=== PATIENT | male | born 1960 | race Caucasian/White ===

== ENCOUNTER 2020-07-14 13:31 | Outpatient (REF) | payer BC, SELFPAY ==
--- NOTE | ~2020-07-14 | MR_ITS ---
EXAMINATION: MR BRAIN WITHOUT AND WITH CONTRAST CLINICAL INFORMATION: Multiple sclerosis follow up study. COMPARISON: Prior MRI dated 07/31/2018.. TECHNIQUE: Multiplanar, multisequential imaging was obtained without and with intravenous administration of contrast. Intravenous contrast: Intravenous contrast: Gadavist 8.5 mL. FINDINGS: The overall pattern of disease is without change. No new dominant white matter lesions are identified. There is no abnormal parenchymal enhancement to suggest active inflammation. The gradient refocused acquisition is normal. No diffusion abnormalities are identified to suggest an acute or subacute infarct. The ventricles are normal in size. No mass effect or midline shift is seen. No extra-axial fluid collections are seen. On postcontrast imaging, there is no abnormal enhancement. The craniovertebral junction, marrow signal, and midline structures are normal. The major intracranial flow voids at the level of the [place] of [place] are preserved. The dural venous sinus flow voids are maintained. The mastoid air cells are well aerated. There is mild mucosal thickening in the left frontal sinus. MR/MR head/brain wo/w con IMPRESSION: No evidence of disease progression. No focal parenchymal enhancement to indicate active inflammation.
== END 2020-07-14 13:32 | disposition home or self-care (01) ==
LOC: HO.MRI 13:31
PROVIDERS: PCP Internal Medicine; Visit Provider Psychiatry & Neurology Neurology
DX: G35 Multiple sclerosis (principal)
CPT/HCPCS: 70553; A9585

== ENCOUNTER 2021-07-23 09:36 | Outpatient (REF) | payer BC, SELFPAY ==
--- NOTE | ~2021-07-23 | XR_ITS ---
EXAMINATION: XR ELBOW, RIGHT CLINICAL INFORMATION: Right elbow pain. COMPARISON: None TECHNIQUE: Three views of the right elbow. FINDINGS: Alignment is anatomic. No joint effusion. No fracture. No significant degenerative changes. XR/XR elbow RT min 3V IMPRESSION: No fracture or joint effusion.
== END 2021-07-23 09:37 | disposition home or self-care (01) ==
LOC: HO.HMGCX 09:36
PROVIDERS: PCP Internal Medicine; Visit Provider Physician Assistant
DX: M25.521 Pain in right elbow (principal)
CPT/HCPCS: 73080

== ENCOUNTER 2021-08-28 06:27 | Day surgery (SDC) | payer BC, SELFPAY ==
[2021-08-22 14:04] VITALS: BMI 28.9
--- NOTE | 2021-08-27 10:02 | P.CONAN_ITS ---
Documented by User: Ping Jacinto NP 08/27/21 10:02 HPI - Anesthesia Eval Consult details Narrative: 61yo M for Colonoscopy [facility] Past Medical History Medical History (Updated 08/28/21 @ 06:36 by Aby Wright, GARY) Asthma Elevated cholesterol Multiple sclerosis Surgical History Surgical History (Updated 08/22/21 @ 13:43 by Karely Charles RN) History of mandibular surgery Hx of appendectomy Hx of discectomy Social History Social History Patient Tobacco Use Status: Former Tobacco user Tobacco use type: Cigarette Advance Directives Information Provided: Yes (brochure mailed) Advance Directives on File: No Meds Allergies Allergy/AdvReac Type Severity Reaction Status Date / Time seasonal/ enviromental Allergy Intermediate Runny Nose Uncoded 08/22/21 13:42 Home Medications Medication Instructions Recorded Confirmed Last Taken Type albuterol sulfate 90 mcg/actuation 0 mcg INHALATION 07/23/21 Unknown History aerosol inhaler (ProAir HFA) bupropion HCl 300 mg 24 hr tablet, 300 mg PO QAM 07/23/21 08/22/21 Unknown History extended release (Wellbutrin XL) fluticasone propionate 50 spray INTRANASAL 07/23/21 Unknown History mcg/actuation nasal spray,suspension gabapentin 600 mg tablet 600 mg PO BEDTIME 07/23/21 08/22/21 Unknown History montelukast 10 mg tablet 10 mg PO DAILY 07/23/21 08/22/21 Unknown History natalizumab 300 mg/15 mL mg IV 07/23/21 Unknown History intravenous solution (Tysabri) pravastatin 40 mg tablet 40 mg PO BEDTIME 07/23/21 08/22/21 Unknown History sertraline 100 mg tablet 100 mg PO DAILY 07/23/21 08/22/21 Unknown History triamcinolone acetonide 0.1 % 1 appl TOPICAL BID-TID 07/23/21 Unknown History topical cream lorazepam 0.5 mg tablet 0.5 mg PO BID 08/22/21 08/22/21 Unknown History Exam Exam Date and Time: August 27, 2021 1002 Height,Weight and Vital Signs: Height 5 ft 9 in Weight 88.904 kg Assessment and Plan Assessment Anesthesia Assessment: Chart Reviewed Documented by User: Jey Randall MD 08/28/21 07:24 [facility] Past Medical History Medical History (Updated 08/28/21 @ 06:36 by Aby Wright RN) Asthma Elevated cholesterol Multiple sclerosis Family History Family history of problems with anesthesia: No Surgical History Surgical History (Updated 08/22/21 @ 13:43 by Karely Charles RN) History of mandibular surgery Hx of appendectomy Hx of discectomy History of Problems with Anesthesia: No Social History Social History Patient Tobacco Use Status: Former Tobacco user Tobacco use type: Cigarette Advance Directives Information Provided: Yes (brochure mailed) Advance Directives on File: No Meds Allergies Allergy/AdvReac Type Severity Reaction Status Date / Time seasonal/ enviromental Allergy Intermediate Runny Nose Uncoded 08/22/21 13:42 Home Medications Medication Instructions Recorded Confirmed Last Taken Type albuterol sulfate 90 mcg/actuation 0 mcg INHALATION 07/23/21 Unknown History aerosol inhaler (ProAir HFA) bupropion HCl 300 mg 24 hr tablet, 300 mg PO QAM 07/23/21 08/22/21 Unknown History extended release (Wellbutrin XL) fluticasone propionate 50 spray INTRANASAL 07/23/21 Unknown History mcg/actuation nasal spray,suspension gabapentin 600 mg tablet 600 mg PO BEDTIME 07/23/21 08/22/21 Unknown History montelukast 10 mg tablet 10 mg PO DAILY 07/23/21 08/22/21 Unknown History natalizumab 300 mg/15 mL mg IV 07/23/21 Unknown History intravenous solution (Tysabri) pravastatin 40 mg tablet 40 mg PO BEDTIME 07/23/21 08/22/21 Unknown History sertraline 100 mg tablet 100 mg PO DAILY 07/23/21 08/22/21 Unknown History triamcinolone acetonide 0.1 % 1 appl TOPICAL BID-TID 07/23/21 Unknown History topical cream lorazepam 0.5 mg tablet 0.5 mg PO BID 08/22/21 08/22/21 Unknown History Exam Airway Mallampati Class: II TM Dist: >3cm Neck ROM: Full Assessment and Plan Assessment Anesthesia Assessment: Anesthesia Plan Discussed Final Anesthetic Review Family History of Problems with Anesthesia: No History of Problems with Anesthesia: No NPO: Yes ASA Class: II Final Preanesthetic Review: No Changes in Pt Med Stat, Meds/Allgs Chart Reviewed, Consent Obtained/Reviewed and Anes Risks/Benef Reviewed Patient Risk: Low Procedure Risk: Low Anesthetic Plan Anesthetic Plan: MAC: Disposition: Standard PACU
[2021-08-28 06:36] VITALS: BP 115/71; PULSE 58; RESP 16; TEMP 36.1; O2SAT 96; BMI 27.3
[2021-08-28] MEDS: Lactated Ringers 1,000 ML 100 ML IVCONT (06:52)
--- NOTE | 2021-08-28 07:24 | MHC.SHP ---
Pre-Procedural Eval Section A Date of Service: 08/28/21 Section B Chief Complaint: screening Details of Present Illness: screening Relevant Family History (Specify if Yes): No Relevant Social History: None Present Medications: see Short Stay Collaborative assessment Medical History: No relevant PMH History of Previous Operations: No relevant previous surgery Allergies: Allergies Allergy/AdvReac Type Severity Reaction Status Date / Time seasonal/ enviromental Allergy Intermediate Runny Nose Uncoded 08/22/21 13:42 Review of Systems Sugical H&P ROS: Negative: Constitution, Cardiovascular, Respiratory, Neurological, Psychiatric, Hem-Onc, Allergic/Immunologic, Gastrointestinal, Genitourinary, Musculoskeletal, Integumentary, Endocrine and Eyes/Ears/Nose/Throat Exam Surgical H&P Exam: Normal: HEENT, Normal: Heart, Normal: Lungs, Normal: Extremities, Normal: Abdomen, Normal: Skin and Normal: Neurological Plan Diagnosis/Plan: Unchanged I have reviewed the history and physical and performed a pertinent physical examination on my patient. No changes have occurred unless specified.
[2021-08-28 08:04] VITALS: BP 104/66; PULSE 60; RESP 14; TEMP 36.6; O2SAT 96
--- NOTE | 2021-08-28 08:10 | P.BOP_ITS ---
Brief Operative Note Date of Service: 08/28/21 Pre-op diagnosis: screening Post-op diagnosis: same (colon polyp) Procedure: colonoscopy Surgeon: Teja Johnson Anesthesia: MAC Was an Recreational Leader used for this Procedure?: No Estimated blood loss (mL): 0 Pathology: other (polyp x1) Condition: stable Disposition: PACU
[2021-08-28 08:20] VITALS: BP 117/65; PULSE 56; RESP 18; TEMP 36.6; O2SAT 97
--- NOTE | 2021-08-28 10:50 | OP_ITS ---
SURGEON: Teja Johnson MD INDICATIONS: Colon cancer screening. PREOPERATIVE DIAGNOSIS: POSTOPERATIVE DIAGNOSIS: PROCEDURE PERFORMED: ESTIMATED BLOOD LOSS: COMPLICATIONS: ANESTHESIA: ASSISTANTS: SPECIMENS: PROCEDURE: Colonoscopy to the terminal ileum with snare polypectomy. MEDICATIONS: Monitored anesthesia care. DESCRIPTION OF PROCEDURE: History and physical performed. The risks and benefits of the procedure were explained to the patient. Informed consent was obtained. The patient was placed in left lateral decubitus position. A digital rectal exam was performed, was found to be normal. The Olympus pediatric videocolonoscope was introduced into the rectum and advanced to the cecum without difficulty. The cecum was identified by transillumination, palpation, identification of the ileocecal valve. Examination was performed. The scope was removed. He tolerated the procedure well and was taken to recovery area in stable condition. FINDINGS: The terminal ileum was examined and appeared normal. The visualized colonic mucosa was normal. There was a large amount of liquid, which limited the sensitivity examination for detection of small polyps. This was washed and suctioned. A single polyp at 80 cm measuring 8-10 mm that was pedunculated, was removed with a snare and recovered via suction. No other polyps were identified. Retroflexed examination showed moderate-sized internal hemorrhoids. IMPRESSION: Colon polyp. RECOMMENDATION: Follow up the biopsy results. MD ERIK Demarco/YARY / [id number]
== END 2021-08-28 08:38 | disposition home or self-care (01) ==
PROVIDERS: PCP Internal Medicine; Visit Provider Internal Medicine Gastroenterology
PROC: 0DJD8ZZ Inspection of Lower Intestinal Tract, Via Natural or Artificial Opening Endoscopic (ICD-10-PCS; CPT 45378; principal; 2021-08-28 07:30)
DX: Z12.11 Encounter for screening for malignant neoplasm of colon (principal); D12.4 Benign neoplasm of descending colon; K64.8 Other hemorrhoids; G35 Multiple sclerosis; E78.00 Pure hypercholesterolemia, unspecified; J45.909 Unspecified asthma, uncomplicated; Z87.891 Personal history of nicotine dependence; Z87.81 Personal history of (healed) traumatic fracture; Z79.899 Other long term (current) drug therapy; Z98.890 Other specified postprocedural states
CPT/HCPCS: 45385; 88305

== ENCOUNTER 2022-09-23 07:08 | Outpatient (REF) | payer OTHER, SELFPAY ==
[2022-09-23 11:33] LABS: MANUAL DIFF FLAG NO
[2022-09-23 11:39] LABS: Appearance Urine Turbid; Color Urine Yellow; Glucose Urine UA Negative (Negative); Leukocyte Esterase Urine Trace (Negative); Nitrite Urine Negative (Negative); PH 5.5 (5.0-9.0); Specific Gravity - Urine >= 1.030 (1.005-1.025); UMIC TRIGGER UACC YES; Urine Blood Negative (Negative); Urine Ketones Trace mg/dL (Negative); Urine Protein Negative (Neg-Trace)
[2022-09-23 11:45] LABS: Bacteria Urine None Seen (None Seen); Basophils Percent Auto 0.7 % (0-2); Eosinophils Absolute Auto 0.2 X10*3/uL (0.0-0.4); Hematocrit 43.5 % (42.0-52.0); Hemoglobin 14.4 g/dl (14.0-18.0); Hyaline Casts Urine 0-2 /LPF (0-2); Imm Gran Abs Auto 0.01 X10*3/uL (0.00-0.03); Imm Gran Pct Auto 0.2 % (0.0-0.4); Lymphocytes Absolute Auto 2.3 X10*3/uL (1.2-4.9); Lymphocytes Percent Auto 38.6 % (20-40); Mean Corpuscular HGB Conc 33.1 g/dl (31.0-36.0); Mean Corpuscular Hemoglobin 28.7 pg (27.0-33.0); Mean Corpuscular Volume 86.8 fL (80.0-98.0); Monocytes Absolute Auto 0.7 X10*3/uL (0.1-1.2); Monocytes Percent Auto 11.4 % (2-11); NRBC Pct Auto 0.8 /100WBC (0.0-0.2); Neutrophils Absolute Auto 2.8 x10*3/uL (2.0-8.3); Neutrophils Percent Auto 46.1 % (45-73); Platelet Count 213 X10*3/uL (160-400); RBC Urine 0-2 /HPF (0-2); Red Blood Count 5.01 X10*6/uL (4.60-5.80); Red Cell Distribution Width 13.5 % (11.0-16.0); Squamous Epithelial Cell Urine 0-2 /HPF (0-2); WBC Urine 0-5 /HPF (0-5)
[2022-09-23 12:19] LABS: Alanine Aminotransferase 20 U/L (0-40); Albumin Level 4.1 g/dL (3.5-5.0); Alkaline Phosphatase 57 U/L (39-117); Anion Gap 13 (12-20); Aspartate Amino Transferase 26 U/L (5-37); Bilirubin Total 0.9 mg/dL (0.0-1.0); Blood Urea Nitrogen 19 mg/dL (9-16); Calcium 9.2 mg/dL (8.4-10.2); Carbon Dioxide 24 mmol/L (22-29); Chloride 107 mmol/L (96-108); Cholesterol 210 mg/dL; Estimated Glomerular Filt Rate > 60; Glucose Fasting 86 mg/dL (60-99); HDL Cholesterol 51 mg/dL; LDL Cholesterol Calculated 143 mg/dl; Potassium 4.3 mmol/L (3.3-5.1); Sodium 140 mmol/L (135-145); Total Protein 6.2 g/dL (6.5-8.0); Triglycerides 80 mg/dL
[2022-09-23 12:37] LABS: Prostate Specific Antigen Scr 1.99 ng/mL (<0.05-4.0); TSH reflex Free T4 1.13 uIU/mL (0.32-4.0)
== END 2022-09-23 07:09 | disposition home or self-care (01) ==
LOC: HO.HMGCLDS 07:08
PROVIDERS: PCP Nurse Practitioner Family; Visit Provider Nurse Practitioner Family
DX: Z00.00 Encounter for general adult medical examination without abnormal findings (principal); Z12.5 Encounter for screening for malignant neoplasm of prostate
CPT/HCPCS: 36415; 80053; 80061; 81001; 84153; 84443; 85025

== ENCOUNTER 2022-12-25 07:29 | Outpatient (AMB) | payer OTHER, SELFPAY ==
--- NOTE | 2022-12-25 07:38 | A.OFFPC_ITS ---
Vital Signs 12/25/22 07:39 Height 5 ft 8 in Weight 187 lb 4 oz BMI 28.5 BP 112/68 Blood Pressure Location Rt brachial Position Sitting Pulse 60 Pulse Source Pulse Oximeter Pulse Oximetry (%) 95 Oxygen Delivery Method Room Air Intake Visit Reasons: PE Allergies seasonal/ enviromental Allergy (Intermediate, Uncoded 12/25/22 07:54) Runny Nose Medication List - Last Reconciled 12/25/22 by MONTY Price-ERIK albuterol sulfate 90 mcg/actuation (ProAir HFA) 0 mcg inhalation bupropion HCl (Wellbutrin XL) 300 mg PO QAM fluticasone propionate 50 mcg/actuation sprays intranasal gabapentin 600 mg PO BEDTIME lorazepam 0.5 mg PO BID montelukast 10 mg PO DAILY natalizumab (Tysabri) mg IV pravastatin 40 mg PO BEDTIME sertraline 100 mg PO DAILY triamcinolone acetonide 0.1% 1 appl topical BID-TID Tobacco use date assessed: 12/25/22 Dental Screening Dental Screen Date: 12/25/22 Did you have a dental visit in the last 12 months?: Yes Did you have a dental problem in the last 6 months where you did not have access to dental care?: No Was dental information given to patient?: Patient has dentist HPI PE HPI Details Here for a PE. Colon screen is up to date. PSA is up to date. intermittent weak stream, denies excessive dribbling. Refuses [facility] today[facility] Medical History Asthma Elevated cholesterol Multiple sclerosis Surgical History History of mandibular surgery Hx of appendectomy Hx of discectomy Social History Household Members: Spouse Housing: House Patient Tobacco Use Status: Former Tobacco user Tobacco use type: Cigarette e-Cigarette/Vaping Use: Never Used service: Yes Current occupational status: retired Cognitive needs: No Hearing needs: Yes Vision needs: Yes Questionnaire PHQ-9 Over the last 2 weeks, how often have you been bothered by any of the following problems? 1. Little interest or pleasure in doing things: not at all 2. Feeling down, depressed, or hopeless: not at all 3. Trouble falling or staying asleep, or sleeping too much: not at all 4. Feeling tired or having little energy: not at all 5. Poor appetite or overeating: not at all 6. Feeling bad about yourself - or that you are a failure or have let yourself or your family down: not at all 7. Trouble concentrating on things, such as reading the newspaper or watching television: not at all 8. Moving or speaking so slowly that other people could have noticed. Or the opposite - being so fidgety or restless that you have been moving around a lot more than usual: not at all 9. Thoughts that you would be better off or of hurting yourself in some way: not at all Total score: 0 Source: Developed by Drs. Jared Arias, Germania Mace, Zane Trujillo and colleagues, with an educational sung from [employer]. Thrive Questionnaire Date Thrive assessed: 12/25/22 I am a: Patient What is your living situation today?: I have a steady place to live Within the past 12 months, did the food you bought not last and you didn't have the money to get more?: Never true Within the past 12 months, did you worry whether your food would run out before you got money to buy more?: Never true Do you have trouble paying for medicines?: No Do you have trouble getting transportation to medical appointments?: No Do you have trouble paying your heating and electricity bill?: No Do you have trouble taking care of your child, family member or friend?: No Do you have trouble with day-to-day activities such as bathing, preparing meals, shopping, managing finances, etc.?: No Are you currently unemployed and looking for a job?: No Are you interested in more education?: No ABEBE-7 AMB Questionnaire ABEBE-7 Date ABEBE - 7 assessed: 12/25/22 Feeling nervous, anxious, or on edge: 0 = Not at all Not being able to stop or control worryin = Not at all Worrying too much about different things: 0 = Not at all Trouble relaxin = Not at all Being so restless that it is hard to sit still: 0 = Not at all Becoming easily annoyed or irritable: 0 = Not at all Feeling afraid as if something awful might happen: 0 = Not at all Total ABEBE-7 score (0-4 normal; 5-9 mild; 10-14 moderate; 15-21 severe): 0 Source: Developed by Drs. Jared Arias, Germania Mace, Zane Trujillo and colleagues, with an educational sung from [employer]. Review of Systems Const Denies chills and Denies fever(s) Eyes Denies blurry vision ENT Denies vertigo, Denies dizziness and Denies sore throat Card Denies chest pain at rest, Denies chest pain with activity, Denies diaphoresis, Denies dyspnea and Denies dyspnea on exertion Resp Denies cough, Denies dyspnea, Denies dyspnea on exertion and Denies wheezing GI Denies abdominal pain, Denies melena, Denies hematochezia, Denies constipation, Denies diarrhea and Denies loose stools Denies hematuria Musc Denies numbness and Denies tingling Skin/Breast Denies lesions Neuro Denies vertigo, Denies dizziness, Denies numbness and Denies tingling Psych Denies anxiety, Denies depression, Denies homicidal ideation, Denies suicidal ideation and Denies other (substance abuse) Aller/Immun Denies wheezing Physical exam (Primary Care) Vital Signs: Last Vital Signs Pulse 60 12/25/22 07:39 BP 112/68 12/25/22 07:39 Pulse Ox 95 12/25/22 07:39 Oxygen Delivery Method Room Air 12/25/22 07:39 BMI result Body Mass Index 28.5 Tobacco/Smoking Status: Tobacco use Status Tobacco use date assessed 12/25/22 12/25/22 07:47 Patient Tobacco Use Status Former Tobacco user 12/25/22 07:39 Tobacco use type Cigarette 12/25/22 07:39 e-Cigarette/Vaping Use Never Used 12/25/22 07:39 PHQ-9: PHQ-9 Score PHQ-9: Total score 0 12/25/22 08:24 Thrive Assessment: Date of Thrive Assessment Date Thrive assessed 12/25/22 12/25/22 08:24 Const General: cooperative Nutritional Appearance: well nourished Orientation/consciousness: patient oriented x3 HENMT Head: Yes normal to inspection, Yes normocephalic and Yes atraumatic Ears: TM normal on the right and TM normal on the left Eyes General: appearance normal, both eyes and all related structures Alignment and Position: alignment normal and position normal Neck Neck: Yes normal visual inspection and Yes no lymphadenopathy Resp Effort & Inspection: normal respiratory effort Auscultation: clear to auscultation bilaterally Cardio Rate: regular rate Rhythm: regular rhythm Heart sounds: S1 normal heart sound present, S2 normal heart sound present and no murmurs GI Palpation (GI): Soft to palpation and nontender Auscultation: normal bowel sounds Male General Exam: Yes normal external exam Penis: normal penis Scrotum: scrotum normal, testes descended bilaterally and no inguinal hernias Testes: no testicular mass Skin Rashes: no rashes Neuro General: patient oriented x3, moves all extremities, no focal motor deficits and deep tendon reflexes 2+ bilaterally Romberg Test: Negative Extrem Right lower extremity: no edema Left lower extremity: no edema Psych Affect: normal affect Attitude: cooperative Thought process: Normal thought process present Assessment and Plan Assessment & Plan (1) Physical exam: Code(s): Z. - Encounter for general adult medical examination without abnormal findings Orders: Orders Comprehensive [place]. Panel Fast Today Z. - Encounter for general adult medical examination without abnormal findings Lipid Panel Today Z. - Encounter for general adult medical examination without abnormal findings TSH reflex Free T4 Today Z. - Encounter for general adult medical examination without abnormal findings Complete Blood Count Auto Diff Today Z00. - Encounter for general adult medical examination without abnormal findings UA CC w/rflx Micro + Cult Today Z. - Encounter for general adult medical examination without abnormal findings AMB EKG-In Office Today Z. - Encounter for general adult medical examination without abnormal findings Coding Level of Care Code Est Pt Prev Care 40-64y(48838) Diagnoses Physical exam Z.
[2022-12-25 07:39] VITALS: BP 112/68; PULSE 60; O2SAT 95; BMI 28.5
== END 2022-12-25 08:36 | disposition home or self-care (01) ==
PROVIDERS: PCP Nurse Practitioner Family; Visit Provider Nurse Practitioner Family
DX: Z00.00 Encounter for general adult medical examination without abnormal findings (principal)
CPT/HCPCS: 99396

== ENCOUNTER 2023-01-22 13:28 | Outpatient (REF) | payer OTHER, SELFPAY ==
--- NOTE | ~2023-01-22 | MR_ITS ---
EXAMINATION: MR BRAIN WITH/WITHOUT CONTRAST CLINICAL INFORMATION: MS COMPARISON: Brain MRI 07/14/2020 TECHNIQUE: MRI of the brain was obtained using routine sequences before and following administration of intravenous contrast. A total of 7.5 mL of Gadavist was administered intravenously. FINDINGS: Stable moderate burden of demyelinating disease within the supratentorial brain parenchyma without new or enhancing lesions identified. No acute infarct. No acute intracranial hemorrhage or extra-axial fluid collection. Stable mild age appropriate generalized parenchymal volume loss. No mass lesion, mass effect, or herniation pattern. Normal intracranial arterial and dural venous sinus flow voids. Normal appearance of the midline structures. The orbits are grossly unremarkable. Scattered paranasal sinus mucosal disease, including some T1 hyperintense contents in the left frontoethmoidal region, presumably inspissated secretions and/or chronic fungal elements. No mastoid effusion. Asymmetric right TMJ osteoarthrosis. MR/MR head/brain wo con IMPRESSION: Stable moderate burden of demyelinating disease within the supratentorial brain parenchyma without new or enhancing lesions identified.
[2023-01-22] MEDS: gadobutroL 7.5 ML VIAL IVPUSH (14:14)
== END 2023-01-22 13:29 | disposition home or self-care (01) ==
LOC: HO.MRI 13:28
PROVIDERS: PCP Internal Medicine; Visit Provider Psychiatry & Neurology Neurology
DX: G35 Multiple sclerosis (principal)
CPT/HCPCS: 70551; A9585

== ENCOUNTER 2023-03-19 09:57 | Outpatient (REF) | payer OTHER, SELFPAY ==
[2023-03-19 13:10] LABS: MANUAL DIFF FLAG NO
[2023-03-19 13:21] LABS: Basophils Percent Auto 0.5 % (0-2); Eosinophils Absolute Auto 0.2 X10*3/uL (0.0-0.4); Hematocrit 42.3 % (42.0-52.0); Hemoglobin 14.2 g/dl (14.0-18.0); Imm Gran Abs Auto 0.02 X10*3/uL (0.00-0.03); Imm Gran Pct Auto 0.3 % (0.0-0.4); Lymphocytes Absolute Auto 2.1 X10*3/uL (1.2-4.9); Lymphocytes Percent Auto 34.6 % (20-40); Mean Corpuscular HGB Conc 33.6 g/dl (31.0-36.0); Mean Corpuscular Hemoglobin 29.1 pg (27.0-33.0); Mean Corpuscular Volume 86.7 fL (80.0-98.0); Mean Platelet Volume 9.9 fL (9.4-12.4); Monocytes Absolute Auto 0.6 X10*3/uL (0.1-1.2); Monocytes Percent Auto 10.4 % (2-11); NRBC Pct Auto 0.5 /100WBC (0.0-0.2); Neutrophils Absolute Auto 3.1 x10*3/uL (2.0-8.3); Neutrophils Percent Auto 51.2 % (45-73); Platelet Count 218 X10*3/uL (160-400); Red Blood Count 4.88 X10*6/uL (4.60-5.80); Red Cell Distribution Width 13.2 % (11.0-16.0)
[2023-03-19 13:55] LABS: HBc Num1 0.14 S/CO (0.00-0.79); HBsAGNum1 0.42 S/CO (0.00-0.99); Hepatitis B Core Antibody Nonreactive (Nonreactive); Hepatitis B Surface Antigen Negative (Negative); ~HepC Num1 0.05 S/CO (0.00-0.79); ~Hepatitis B Surface Antibody NONREACTIVE (Nonreactive); ~Hepatitis C Antibody Nonreactive (Nonreactive)
[2023-03-20 16:08] LABS: IgA 203 mg/dL (70-320); IgG 849 mg/dL (600-1540); IgM 27 mg/dL (50-300)
[2023-04-01 06:08] LABS: JCV Antibody POSITIVE; JCV Index Value 0.73
== END 2023-03-19 09:58 | disposition home or self-care (01) ==
LOC: HO.HMGCLDS 09:57
PROVIDERS: PCP Nurse Practitioner Family; Visit Provider Psychiatry & Neurology Neurology
DX: G35 Multiple sclerosis (principal)
CPT/HCPCS: 82784; 85025; 86355; 86359; 86704; 86706; 86711; 86803; 87340

== ENCOUNTER 2023-12-05 12:35 | Outpatient (AMB) | payer OTHER, SELFPAY ==
[2023-12-05 12:38] VITALS: BP 118/70; PULSE 72; TEMP 36.6; O2SAT 97; BMI 28.3
--- NOTE | 2023-12-05 12:38 | AM.OFFWIN_ITS ---
Intake Vital Signs 12/05/23 12:38 Height 5 ft 8 in Weight 186 lb BMI 28.3 BP 118/70 Blood Pressure Location Rt brachial Position Sitting Pulse 72 Pulse Source Pulse Oximeter Temp 97.8 F Temp Source Oral Pulse Oximetry (%) 97 Intake Visit Reasons: EP LT garrido cut/?swelling Intake Note: pt is here for left garrido cut, swelling and clear drainage Patient Tobacco Use Status: Former Tobacco user Allergies seasonal/ enviromental Allergy (Intermediate, Uncoded 12/05/23 12:42) Runny Nose Do you need a note to return to daycare/school/sports/work: Yes HPI HPI Comments History of Present Illness Details Patient is a 63-year-old male complaining of a cut on his left garrido that he sustained 8 days ago, he states he hit it on the metal part of his truck. he states it has been weeping a dramatic amount of clear fluid since then but he is also noticed the middle of it is turning a vance/brown color, it is not healing and there is a darkened area in the center. He also states it is becoming painful. He states he has been using hydrogen peroxide on it daily and a triple antibiotic ointment and then covering it with a Band-Aid. [facility] Medical History Asthma Elevated cholesterol Multiple sclerosis Surgical History History of mandibular surgery Hx of appendectomy Hx of discectomy Social History Household Members: Spouse Housing: House Patient Tobacco Use Status: Former Tobacco user Tobacco use type: Cigarette e-Cigarette/Vaping Use: Never Used service: Yes Current occupational status: retired Cognitive needs: No Hearing needs: Yes Vision needs: Yes Review of Systems Const All systems reviewed & are unremarkable except as noted in HPI and below Physical Exam Vital Signs: Last Vital Signs Temp 97.8 F 12/05/23 12:38 Pulse 72 12/05/23 12:38 BP 118/70 12/05/23 12:38 Pulse Ox 97 12/05/23 12:38 BMI result Body Mass Index 28.3 Const General: cooperative, healthy appearing, comfortable, no acute distress and well developed Orientation/consciousness: patient oriented x3 Limitations: no limitations Eyes General: appearance normal, both eyes and all related structures Resp Effort & Inspection: normal respiratory effort and able to speak in complete sentences Skin Other: Left anterior garrido has a 2 cm linear laceration that is crusted with a purulent material and a black spot in the center. There is erythema around the wound as well as tenderness. weeping clear fluid as well Neuro General: patient oriented x3 Assessment & Plan Assessment & Plan (1) Wound of left lower extremity: Code(s): S81.802A - Unspecified open wound, left lower leg, initial encounter Qualifiers: Encounter type: initial encounter Qualified Code(s): S81.802A - Unspecified open wound, left lower leg, initial encounter Plan: Recommended stopping using hydrogen peroxide on it daily, recommended using Aquaphor ointment twice a day and taking the doxycycline for 5 days. Recommended leaving it open to air unless he is going out in public, then he should cover (2) Infected wound: Code(s): T14.8XXA - Other injury of unspecified body region, initial encounter; L08.9 - Local infection of the skin and subcutaneous tissue, unspecified Plan: see above Plan see above Medications: New doxycycline hyclate 100 mg PO BID 10 tabs 0RF Coding Level of Care Code Est Pt Level 3 (74433) Diagnoses Wound of left lower extremity, initial encounter S81.802A Encounter type: initial encounter Infected wound T14.8XXA; L08.9
== END 2023-12-05 13:59 | disposition home or self-care (01) ==
PROVIDERS: PCP Nurse Practitioner Family; Visit Provider Physician Assistant
DX: S81.802A Unspecified open wound, left lower leg, initial encounter (principal); T14.8XXA Other injury of unspecified body region, initial encounter; L08.9 Local infection of the skin and subcutaneous tissue, unspecified; Z23 Encounter for immunization
CPT/HCPCS: 90471; 90715; 99213

== ENCOUNTER 2023-12-24 07:02 | Outpatient (REF) | payer OTHER, SELFPAY ==
[2023-12-24 10:14] LABS: MANUAL DIFF FLAG NO
[2023-12-24 10:23] LABS: Appearance Urine Cloudy; Color Urine Yellow; Glucose Urine UA Negative (Negative); Leukocyte Esterase Urine Negative (Negative); Nitrite Urine Negative (Negative); PH 5.5 (5.0-9.0); Urine Blood Negative (Negative); Urine Ketones Negative (Negative); Urine Protein Negative (Neg-Trace)
[2023-12-24 10:24] LABS: Basophils Percent Auto 0.6 % (0-2); Eosinophils Absolute Auto 0.2 X10*3/uL (0.0-0.4); Eosinophils Percent Auto 3.4 % (0-4); Hematocrit 44.8 % (42.0-52.0); Hemoglobin 15.1 g/dl (14.0-18.0); Imm Gran Abs Auto 0.01 X10*3/uL (0.00-0.03); Imm Gran Pct Auto 0.2 % (0.0-0.4); Lymphocytes Absolute Auto 1.1 X10*3/uL (1.2-4.9); Lymphocytes Percent Auto 23.2 % (20-40); Mean Corpuscular HGB Conc 33.7 g/dl (31.0-36.0); Mean Corpuscular Hemoglobin 29.1 pg (27.0-33.0); Mean Corpuscular Volume 86.3 fL (80.0-98.0); Mean Platelet Volume 10.1 fL (9.4-12.4); Monocytes Absolute Auto 0.6 X10*3/uL (0.1-1.2); Monocytes Percent Auto 12.8 % (2-11); Neutrophils Absolute Auto 2.8 x10*3/uL (2.0-8.3); Neutrophils Percent Auto 59.8 % (45-73); Platelet Count 224 X10*3/uL (160-400); Red Blood Count 5.19 X10*6/uL (4.60-5.80); Red Cell Distribution Width 12.5 % (11.0-16.0); White Blood Count 4.8 X10*3/uL (4.8-10.8)
[2023-12-24 10:54] LABS: Alanine Aminotransferase 11 U/L (0-40); Albumin Level 3.9 g/dL (3.5-5.0); Alkaline Phosphatase 53 U/L (39-117); Anion Gap 11 (12-20); Aspartate Amino Transferase 17 U/L (5-37); Bilirubin Total 0.4 mg/dL (0.0-1.0); Blood Urea Nitrogen 16 mg/dL (9-16); Calcium 8.8 mg/dL (8.4-10.2); Carbon Dioxide 26 mmol/L (22-29); Chloride 108 mmol/L (96-108); Cholesterol 209 mg/dL (<200); Estimated Glomerular Filt Rate > 60; Glucose Fasting 91 mg/dL (60-99); HDL Cholesterol 55 mg/dL (>40); LDL Cholesterol Calculated 140 mg/dL (<100); Potassium 4.2 mmol/L (3.3-5.1); Sodium 141 mmol/L (135-145); TSH reflex Free T4 0.95 uIU/mL (0.32-4.0); Total Protein 6.3 g/dL (6.5-8.0); Triglycerides 70 mg/dL (<150)
== END 2023-12-24 07:03 | disposition home or self-care (01) ==
LOC: HO.HMGCLDS 07:02
PROVIDERS: PCP Nurse Practitioner Family; Visit Provider Nurse Practitioner Family
DX: Z00.00 Encounter for general adult medical examination without abnormal findings (principal)
CPT/HCPCS: 36415; 80053; 80061; 81003; 84443; 85025

== ENCOUNTER 2024-01-01 14:55 | Outpatient (AMB) | payer OTHER, SELFPAY ==
[2024-01-01 14:56] VITALS: BP 110/70; PULSE 72; O2SAT 96; BMI 28.0
--- NOTE | 2024-01-01 14:56 | A.OFFPC_ITS ---
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 Required: No Accompanied by: Self / Same As Patient Allergies seasonal/ enviromental Allergy (Intermediate, Uncoded 01/01/24 14:57) Runny Nose Medication List - Last Reconciled 01/01/24 by MONTY Price-ERIK albuterol sulfate 90 mcg/actuation (ProAir HFA) 0 mcg inhalation bupropion HCl XL (Wellbutrin XL) 300 mg PO QAM fluticasone propionate 50 mcg/actuation sprays intranasal gabapentin 600 mg PO BEDTIME lorazepam 0.5 mg PO BID montelukast 10 mg PO DAILY ocrelizumab (Ocrevus) 600 mg IV [id number] pravastatin 40 mg PO BEDTIME sertraline 100 mg PO DAILY triamcinolone acetonide 0.1% 1 appl topical BID-TID Tobacco use date assessed: 01/01/24 Dental Screening Dental Screen Date: 01/01/24 Did you have a dental visit in the last 12 months?: Yes Did you have a dental problem in the last 6 months where you did not have access to dental care?: No Was dental information given to patient?: Patient has dentist HPI PE HPI Details Pt is here for a PE. Labs were already performed. Colon screen is up to date. [facility]. Pt's cholesterol was elevated. Will increase pravastatin from 40mg to 80mg. Pt is seeing an MS specialist. [facility], [facility] Medical History Asthma Multiple sclerosis Elevated cholesterol Surgical History Hx of discectomy History of mandibular surgery Hx of appendectomy Social History Household Members: Spouse Housing: House Patient Tobacco Use Status: Former Tobacco user Tobacco use type: Cigarette e-Cigarette/Vaping Use: Never Used service: Yes Current occupational status: retired Cognitive needs: No Hearing needs: Yes Vision needs: Yes Questionnaire PHQ-9 Over the last 2 weeks, how often have you been bothered by any of the following problems? 1. Little interest or pleasure in doing things: not at all 2. Feeling down, depressed, or hopeless: not at all 3. Trouble falling or staying asleep, or sleeping too much: not at all 4. Feeling tired or having little energy: not at all 5. Poor appetite or overeating: not at all 6. Feeling bad about yourself - or that you are a failure or have let yourself or your family down: not at all 7. Trouble concentrating on things, such as reading the newspaper or watching television: not at all 8. Moving or speaking so slowly that other people could have noticed. Or the opposite - being so fidgety or restless that you have been moving around a lot more than usual: not at all 9. Thoughts that you would be better off or of hurting yourself in some way: not at all Total score: 0 Depression Screening Interpretation: Negative Depression Screening Done: Yes 18810 - PHQ-9 Billing: Yes Source: Developed by Drs. Jared Arias, Germania Mace, Zane Trujillo and colleagues, with an educational sung from [employer]. Thrive Questionnaire Date Thrive assessed: 01/01/24 I am a: Patient What is your living situation today?: I have a steady place to live Within the past 12 months, did the food you bought not last and you didn't have the money to get more?: Never true Within the past 12 months, did you worry whether your food would run out before you got money to buy more?: Never true Do you have trouble paying for medicines?: No Do you have trouble getting transportation to medical appointments?: No Do you have trouble paying your heating and electricity bill?: No Do you have trouble taking care of your child, family member or friend?: No Do you have trouble with day-to-day activities such as bathing, preparing meals, shopping, managing finances, etc.?: No Are you currently unemployed and looking for a job?: No Are you interested in more education?: No Please select the resources that you would like help with: None Currently or been in a relationship where the following occur: No concerns reported THRIVE Score: 0 AUDIT C Alcohol Use Questionnaire (AUDIT-C) 1. How often do you have a drink containing alcohol?: 2-4 times a month 2. How many drinks containing alcohol do you have on a typical day when you are drinking?: 1 or 2 3. How often do you have six or more drinks on one occasion?: Never Total Score: 2 Score Reviewed/Action Taken: Yes ABEBE-7 AMB Questionnaire ABEBE-7 Date ABEBE - 7 assessed: 01/01/24 Feeling nervous, anxious, or on edge: 0 = Not at all Not being able to stop or control worryin = Not at all Worrying too much about different things: 0 = Not at all Trouble relaxin = Not at all Being so restless that it is hard to sit still: 0 = Not at all Becoming easily annoyed or irritable: 0 = Not at all Feeling afraid as if something awful might happen: 0 = Not at all Total ABEBE-7 score (0-4 normal; 5-9 mild; 10-14 moderate; 15-21 severe): 0 Source: Developed by Drs. Jared Arisa, Germania Mace, Zane Trujillo and colleagues, with an educational sung from [employer]. ABEBE-7 Assessment Billing ABEBE-7 Assessment Tool: ABEBE-7 Assessment 21764 Review of Systems Const Denies chills and Denies fever(s) Eyes Denies blurry vision ENT Denies vertigo, Denies dizziness and Denies sore throat Card Denies chest pain at rest, Denies chest pain with activity, Denies diaphoresis, Denies dyspnea and Denies dyspnea on exertion Resp Denies cough, Denies dyspnea, Denies dyspnea on exertion and Denies wheezing GI Denies abdominal pain, Denies melena, Denies hematochezia, Denies constipation, Denies diarrhea and Denies loose stools Denies hematuria Musc Denies numbness and Denies tingling Skin/Breast Denies lesions Neuro Denies vertigo, Denies dizziness, Denies numbness and Denies tingling Psych Denies anxiety, Denies depression, Denies homicidal ideation, Denies suicidal ideation and Denies other (substance abuse) Aller/Immun Denies wheezing Physical exam (Primary Care) Vital Signs: Last Vital Signs Pulse 72 01/01/24 14:56 BP 110/70 01/01/24 14:56 Pulse Ox 96 01/01/24 14:56 Oxygen Delivery Method Room Air 01/01/24 14:56 BMI result Body Mass Index 28.0 Tobacco/Smoking Status: Tobacco use Status Tobacco use date assessed 01/01/24 01/01/24 15:03 Patient Tobacco Use Status Former Tobacco user 01/01/24 15:03 Tobacco use type Cigarette 01/01/24 15:03 e-Cigarette/Vaping Use Never Used 01/01/24 15:03 PHQ-9: PHQ-9 Score PHQ-9: Total score 0 01/01/24 15:13 Depression Screening Interpretation: Negative Thrive Assessment: Date of Thrive Assessment Date Thrive assessed 01/01/24 01/01/24 15:03 Currently or been in a relationship where the following occur: No concerns reported Const General: cooperative Nutritional Appearance: well nourished Orientation/consciousness: patient oriented x3 HENMT Head: Yes normal to inspection, Yes normocephalic and Yes atraumatic Ears: TM's normal bilaterally Eyes General: appearance normal, both eyes and all related structures Alignment and Position: alignment normal and position normal Neck Neck: Yes normal visual inspection and Yes no lymphadenopathy Thyroid: Thyroid normal Resp Effort & Inspection: normal respiratory effort Auscultation: clear to auscultation bilaterally Cardio Rate: regular rate Rhythm: regular rhythm Heart sounds: S1 normal heart sound present, S2 normal heart sound present and no murmurs GI Palpation (GI): Soft to palpation and nontender Auscultation: normal bowel sounds Male General Exam: Yes normal external exam Penis: normal penis Scrotum: scrotum normal, testes descended bilaterally and no inguinal hernias Testes: no testicular mass Skin Other: anterior distal left garrido with healing scabbed lesion Rashes: no rashes Neuro General: patient oriented x3, moves all extremities, no focal motor deficits and deep tendon reflexes 2+ bilaterally Romberg Test: Negative Psych Appearance: grossly normal Mental Status: mental status grossly normal Speech and movement: Normal speech and movement present Affect: normal affect Attitude: cooperative Thought process: Normal thought process present Thought content: Normal thought content present Insight: Good insight present (Psych) Judgement: Good judgement present (Psych) Assessment and Plan Assessment & Plan (1) Screening for prostate cancer: Code(s): Z12.5 - Encounter for screening for malignant neoplasm of prostate (2) Physical exam: Code(s): Z00.00 - Encounter for general adult medical examination without abnormal findings Plan: labs already done (3) Dyslipidemia: Code(s): E78.5 - Hyperlipidemia, unspecified Plan: increasing statin from 40mg to 80mg, repeat labs in approx 2 months Orders: Orders Lipid Panel Today E78.5 - Hyperlipidemia, unspecified, Z00.00 - Encounter for general adult medical examination without abnormal findings Comprehensive [place]. Panel Fast Today E78.5 - Hyperlipidemia, unspecified, Z00.00 - Encounter for general adult medical examination without abnormal findings Medications: New pravastatin 80 mg PO BEDTIME 90 days 90 tabs 0RF Coding Level of Care Code Est Pt Prev Care 40-64y(24726) Diagnoses Screening for prostate cancer Z12.5 Physical exam Z00.00 Dyslipidemia E78.5 Additional Codes ABEBE-7 Assessment Billing - ABEBE-7 Assessment Tool: ABEBE-7 Assessment 86759 ([id number])
== END 2024-01-01 15:40 | disposition home or self-care (01) ==
PROVIDERS: PCP Nurse Practitioner Family; Visit Provider Nurse Practitioner Family
DX: Z00.00 Encounter for general adult medical examination without abnormal findings (principal); Z12.5 Encounter for screening for malignant neoplasm of prostate; E78.5 Hyperlipidemia, unspecified
CPT/HCPCS: 99396

== ENCOUNTER 2024-02-26 06:34 | Outpatient (REF) | payer OTHER, SELFPAY ==
[2024-02-26 11:00] LABS: Alanine Aminotransferase 15 U/L (0-40); Alkaline Phosphatase 57 U/L (39-117); Anion Gap 10 (12-20); Aspartate Amino Transferase 24 U/L (5-37); Bilirubin Total 0.7 mg/dL (0.0-1.0); Blood Urea Nitrogen 16 mg/dL (9-16); Calcium 9.2 mg/dL (8.4-10.2); Carbon Dioxide 28 mmol/L (22-29); Chloride 105 mmol/L (96-108); Cholesterol 177 mg/dL (<200); Estimated Glomerular Filt Rate > 60; Glucose Fasting 86 mg/dL (60-99); HDL Cholesterol 62 mg/dL (>40); LDL Cholesterol Calculated 103 mg/dL (<100); Potassium 4.2 mmol/L (3.3-5.1); Sodium 139 mmol/L (135-145); Total Protein 6.6 g/dL (6.5-8.0); Triglycerides 64 mg/dL (<150)
== END 2024-02-26 06:35 | disposition home or self-care (01) ==
LOC: HO.HMGCLDS 06:34
PROVIDERS: PCP Nurse Practitioner Family; Visit Provider Nurse Practitioner Family
DX: Z00.00 Encounter for general adult medical examination without abnormal findings (principal); E78.5 Hyperlipidemia, unspecified
CPT/HCPCS: 36415; 80053; 80061

== ENCOUNTER 2024-06-04 12:49 | Outpatient (REF) | payer OTHER, SELFPAY ==
--- NOTE | ~2024-06-04 | MR_ITS ---
CLINICAL HISTORY: MS MR Brain without and with gadolinium Comparison: None Findings: Several T2 hyperintense lesions in the periventricular and juxtacortical white matter of the cerebral hemispheres (some of the periventricular lesions are mildly T1 hypointense ). Small T2 hyperintense periventricular lesion in the left middle cerebral peduncle. No evidence of more than expected for age volume loss. No evidence of restricted diffusion or abnormal enhancement. Otherwise unremarkable exam. IMPRESSION: 1. Predominantly supratentorial T2 hyperintense lesions are compatible with demyelinating plaques in context of known multiple sclerosis. No evidence of restricted diffusion or abnormal enhancement to suggest active plaque. This document has been electronically signed by: Cristine Burton MD on 06/07/2024 10:37:17
--- NOTE | ~2024-06-04 | MR_ITS ---
CLINICAL HISTORY: MS MR cervical spine without gadolinium Comparison: None Normal alignment. No evidence of acute fracture or marrow infiltration. Multilevel disc dehydration. [id number] disc narrowing at some levels. Mild Modic type 1 changes in 1 of the upper thoracic levels. Nonenhancing, up to 3 x 10 mm, nonexpansile, T2 hyperintense region in the left posterior paramidline aspect of the cord at C6/C7 level (best seen on the stir images) compatible with demyelinating plaque in context of known multiple sclerosis. Otherwise unremarkable signal intensity of the cord on this partially motion limited study. Multilevel severe bilateral neural foraminal stenosis from C3/C4 to C5/C6. Left-sided severe neural foraminal stenosis at C6/C7. Small posterior disc osteophytes plus/minus minimal ligamentum flava thickening at several levels associated with at most mild central canal compromise. IMPRESSION: Nonenhancing, up to 3 x 10 mm, nonexpansile, T2 hyperintense region in the left posterior paramidline aspect of the cord at C6/C7 level compatible with demyelinating plaque in context of known multiple sclerosis. Otherwise unremarkable signal intensity of the cord on this partially motion limited study. Multilevel severe neural foraminal stenosis. This document has been electronically signed by: Cristine Burton MD on 06/07/2024 10:50:15
[2024-06-04] MEDS: gadobutroL 10 ML VIAL IVPUSH (14:13)
--- OUTSIDE RECORDS SUMMARY | 2024-06-04 15:24 | XMS_ITS | Encounter Summary ---
Author Name [facility] [place] [facility] [facility] [place] Address [address] [place] [id number] Care Team Providers Care System Specialist Name Role Phone HEIDI KRAMER Primary Care Provider Unavailabl e Insurance Providers: All historical and current Section Date Range: From patient's date of to the date document was created. This section includes the names of all active insurance providers for the patient. Insurance Provider Type of Coverage Plan Name Start of Policy Coverage End of Policy Coverage Group Number Member ID Insurance Provider's Telephone Number Policy Salinas's Name Patient's Relationship to Policy Salinas BCBS [place] FEP PREFERRED PROVIDER ORGANIZAT ION (PPO) BASIC SELF PLUS ONE May 28, 2015 [id number] [phone] GAUTAM MARCELO PATIENT [employer] EP BCBS PRESCRIPT ION FEP CAREM ARK May 19, 2010 [id number] [phone] GAUTAM MARCELO PATIENT [employer] RE DODA May 19, 2022 DODA [id number] GAUTAM MARCELO PATIENT [employer] RX PRESCRIPT ION RX May 19, 2022 THPRX [id number] GAUTAM MARCELO PATIENT [facility] POINT OF SERVICE POS 2021 [id number] [phone] GAUTAM MARCELO PATIENT [facility] 2021 [id number] GAUTAM MARCELO PATIENT [facility] USP -NILESH DRISCOLL 2021 [facility] EMER[facility] DEPART[facility] [id number] [phone] GAUTAM MARCELO PATIENT [facility] BREANNA Barlow 2021 [facility] EMER[facility] [id number] [phone] GAUTAM MARCELO PATIENT Selected Encounter This section includes the information on record at [place] for the Encounter. Date/Time Encounter Type Encounter Description Reason Provider Source September 19, 2023 10:13 AM ELECTROCARDIOGRAM REPORT EKG ICD-10-CM Z13.6 Encounter for screening for cardiovascular disorders SABINA DUKES Cain Encounter Template Text not used by [place] Assessments - Encounter Diagnoses This section includes the primary and secondary diagnoses documented for the Encounter. Date/Time Primary/Secondary Diagnosis Diagnosis Name Provider Source October 03, 2023 03:43 PM PRIMARY Encounter for screening for cardiovascular disorders PAULA BEARD CRISPIN [facility] Plan of Treatment: Future Appointments (+ 6 months) and Future Tests (+/- 45 days) The Plan of Treatment section includes future care activities for the patient [facility] [place] [facility] This section includes future appointments and future orders which are active, pending or scheduled. Future Appointments This section includes appointments that were scheduled to occur 6 months from the date of the Encounter, up to a maximum of 20 appointments. The data comes from all [place] treatment facilities. Appointment Date/Time Appointment Type Appointme nt Facility Name September 29, 2023 08:30 AM AMBULATORY - MEDICINE [facility] Nov 04, 2023 08:20 AM AMBULATORY MEDICINE [facility] Mar 19, 2024 10:30 AM AMBULATORY - MEDICINE [facility] Lab Results: +/- 30 days of the encounter This section includes the Chemistry and Hematology Lab Results on record with [place] for the patient. Radiology Reports and Pathology Reports are provided separately, in subsequent sections. Lab Results This section contains the Chemistry/Hematology Results that were resulted 30 days before or 30 daysafter the date of the Encounter. Date/Time Source Result Type Result - Unit Interpretation Reference Range Comment Sep 10, 2023 07:53 AM [facility] LIVER FUNCTION Specimen Type: SERUM No comment entered. Ordering Provider: HEIDI KRAMER Report Released Date/Time: Sep 06, 2023 06:54 PM Reporting Lab: [facility] [address] [facility] [address] Performing Lab: [address] [address] PROTEIN,TOTAL 6.5 g/dL 6.0-8.3 ALBUMIN 4.0 g/dL 3.5-5.0 ALKALINE PHOSPHATASE 55 U/L 40-150 AST 25 U/L 5-34 ALT 20 U/L BILIRUBIN, TOTAL 0.6 mg/dL 0.2-1.2 Sep 10, 2023 07:53 AM [facility] LIPID PANEL FASTING Specimen Type: SERUM No comment entered. Ordering Provider: HEIDI KRAMER Report Released Date/Time: Sep 06, 2023 06:54 PM Reporting Lab: [address] [address] Performing Lab: [address] [address] CHOLESTEROL 219 mg/dL H TRIGLYCERIDE 66 mg/dL 0-150 LDL calculated 141 mg/dL H 0-129 CHOL/HDL 3.4 HDL CHOLESTEROL 65 mg/dL H 40-60 Sep 10, 2023 07:53 AM [facility] BASIC METABOLIC PANEL (fasting) Specimen Type: SERUM No comment entered. Ordering Provider: HEIDI KRAMER Report Released Date/Time: Sep 06, 2023 06:54 PM Reporting Lab: [address] [address] Performing Lab: [address] [address] UREA NITROGEN 15 mg/dL 7-25 GLUCOSE 96 mg/dL 65-100 SODIUM 141 mmol/L 135-145 POTASSIUM 4.8 mmol/L 3.5-5.0 CHLORIDE 107 mmol/L 100-110 CO2 26 meq/L 20-30 CREATININE, Serum 0.93 mg/dL 0.50-1.40 eGFR(CKD-EPI 2020) >90 mL/min >60 Sep 10, 2023 07:53 AM [facility] CBC AND DIFF (AUTO) Specimen Type: BLOOD No comment entered. Ordering Provider: HEIDI KRAMER Report Released Date/Time: Sep 06, 2023 06:54 PM Reporting Lab: [facility] [address] [facility] [address] Performing Lab: [address] [address] WBC 4.31 10*3/uL L 4.50-11.00 RBC 5.14 10*6/uL 4.23-5.66 HGB 14.8 g/dL 12.8-17 HCT 44.2 39.2-50.4 MCV 86.0 fL 82-99 MCHC 33.5 g/dL 30.8-35.1 PLT 208 10*3/uL 140-360 RDW-CV 12.8 12.0-16.0 [place], Abs 0.41 10*3/uL 0.30-1.10 MCH 28.8 pg 26.2-32.6 Neut % 62.6 43.7-75.8 Lymph % 23.0 14.0-42.3 [place] % 9.5 5.1-13.7 Eos % 3.5 0.4-6.8 Baso % 0.9 0.1-2.0 Neut, Abs 2.70 10*3/uL 2.20-7.60 Lymph, Abs 0.99 10*3/uL L 1.00-3.20 Eos, Abs 0.15 10*3/uL 0.03-0.44 Baso, Abs 0.04 10*3/uL 0.01-0.13 Immature Gran % 0.5 0.0-0.7 Immature Gran, Abs 0.02 10*3/uL 0.00-0.06 Sep 10, 2023 07:53 AM [facility] TSH Specimen Type: SERUM No comment entered. Ordering Provider: HEIDI KRAMER Report Released Date/Time: Sep 06, 2023 06:54 PM Reporting Lab: [address] [address] Performing Lab: [address] [address] TSH 0.67 u[IU]/mL 0.35-5.00 Sep 10, 2023 07:53 AM [facility] PSA Specimen Type: SERUM No comment entered. Ordering Provider: HEIDI KRAMER Report Released Date/Time: Sep 06, 2023 06:54 PM Reporting Lab: [address] [address] Performing Lab: [address] [address] PSA 2.95 ng/mL 0.00-4.00 Sep 10, 2023 07:53 AM [facility] MICROSCOPIC AUTOMATED, URINE Specimen Type: URINE Comment: If Glucose = >500 and Ketones are positive, please alert the Physician. Ordering Provider: HEIDI KRAMER Report Released Date/Time: Sep 06, 2023 06:54 PM Reporting Lab: [address] [address] Performing Lab: [address] [address] UA WBC 0-5 /[HPF] 0-5 UA MUCUS FEW /[LPF] Trace UA RBC 0-2 /[HPF] 0-3 Sep 10, 2023 07:53 AM [facility] URINALYSIS CLEAN CATCH Specimen Type: URINE Comment: If Glucose = >500 and Ketones are positive, please alert the Physician. Ordering Provider: HEIDI KRAMER Report Released Date/Time: Sep 06, 2023 06:54 PM Reporting Lab: [address] [address] Performing Lab: [address] [address] UA COLOR Yellow Yellow UA APPEARANCE Clear Clear UA GLUCOSE NEGATIVE mg/dL Negative UA KETONES TRACE mg/dL Negative UA BLOOD NEGATIVE mg/dL Negative UA PROTEIN 20 mg/dL Negative UA NITRITE NEGATIVE mg/dL Negative UA BILIRUBIN NEGATIVE mg/dL Negative UA SPECIFIC GRAVITY 1.033 H 1.016-1.022 UA pH 6.0 5.0-9.0 UA UROBILINOGEN <2.0 mg/dL <2.0 UA LEUKOCYTE TRACE Negative Encounter Notes: All associated encounter notes This section contains the clinical notes associated to the Encounter. Date/Time Encounter Note(s) Provider Source October 03, 2023 03:42 PM CARDIOLOGY PROCEDU RE NOTE: LOCAL TITLE: EKG OUTPATIENT RESULT STANDARD TITLE: CARDIOLOGY PROCEDURE NOTE DATE OF NOTE: OCTOBER 03, 2023@15:42 ENTRY DATE: OCTOBER 03, 2023@15:42:33 AUTHOR: PAULA BEARD EXP COSIGNER: URGENCY: STATUS: COMPLETED An EKG was done on: September Please see [facility] for the EKG result. /[place]/ PAULA BEARD SPECIAL DIET COOK Signed: 10/03/2023 15:43 PAULA BEARD [facility]
--- OUTSIDE RECORDS SUMMARY | 2024-06-04 15:24 | XMS_ITS ---
Author Name Department of [facility] ([place] Organization [facility] Address [address] [place] [id number] Care Team Providers Care Conference Concierge Name Role Phone HEIDI KRAMER Primary Care [...] SELF PLUS ONE May 28, [phone] [id number] GAUTAM MARCELO PATIENT CAREMARK-F EP BCBS PRESCRIPT ION FEP CAREM ARK May 19, 2010 [id number] GAUTAM MARCELO PATIENT [employer] SCR[employer] TRICA RE DODA May 19, 2022 DODA [id number] GAUTAM MARCELO PATIENT OPTUM RX PRESCRIPT ION RX May 19, 2022 THPRX [id number] GAUTAM MARCELO PATIENT [facility] POINT OF SERVICE POS 2021 [id number] [phone] [id number] [phone] GAUTAM MARCELO PATIENT [facility] 2021 [facility] [id number] GAUTAM MARCELO PATIENT [facility] P -NILESH DRISCOLL 2021 [facility] [phone] GAUTAM MARCELO PATIENT [facility] Barlow 2021 [facility] [id number] [phone] GAUTAM MARCELO PATIENT Selected Encounter This section includes the information on record at [place] for the Encounter. Date/Time Encounter Type Encounter Description Reason Provider Source Jun 23, 2023 08:30 AM OFFICE O/P EST MOD 30 MIN NEUROLOGY ICD-10-CM G35 Multiple sclerosis ANA LILIA ALY [facility] Encounter Template Text not used by [place] Assessments - Encounter Diagnoses This section includes the primary and secondary diagnoses documented for the Encounter. Date/Time Primary/Secondary Diagnosis Diagnosis Name Provider Source Jun 23, 2023 08:58 AM PRIMARY Multiple sclerosis ANA [facility]ILIA ALY [facility] Plan of Treatment: Future Appointments (+ 6 months) and Future Tests (+/- 45 days) The Plan of Treatment section includes future care activities for the patient from all [place] [facility]. This section includes future appointments and future orders which are active, pending or scheduled. Future Appointments This section includes appointments that were scheduled to occur 6 months from the date of the Encounter, up to a maximum of 20 appointments. The data comes from all [place] treatment facilities. Appointment Date/Time Appointment Type Appointme nt Facility Name September 19, 2023 09:30 AM AMBULATORY - MEDICINE [facility] September 29, 2023 08:30 AM [facility] Nov 04, 2023 08:20 AM [facility]BULATORY - [facility] Vital Signs: All taken on the encounter date This section contains inpatient and outpatient Vital Signs collected on the date of the Encounter. Date/Time Temperature Pulse Blood Pressure Respiratory Rate SP02 Pain Height Weight Body Mass Index Source Jun 23, 2023 08:37 AM 97.5 67 124/78 18 94 0 192.4 29 [facility] Social History: Smoking Status (Most current) and Tobacco Use (All prior to encounter date) This section includes the most current, and the historical, smoking and tobacco- related health factors from the [place] facility where the Encounter took place. Current Smoking Status This section includes the most current smoking, or tobacco-related health factor, from the [place] facility where the Encounter took place. Date/Time Current Smoking Status Comment King barnesy Sep 11, 2022 10:30 AM VA-TOBACCO FORMER USER [facility] Tobacco Use History This section includes a history of the smoking, or tobacco-related health factors, that were collected on or before the date of the Encounter. The data comes from the [place] facility where the Encounter took place. Date/Time Smoking Status/Tobacco Use Comment F acannelise Sep 11, 2022 10:30 AM VA-TOBACCO QUIT 5 TO < 15 YRS [place] [facility] [place] [place] [facility] Sep 04, 2021 09:00 AM VA-TOBACCO FORMER USER [place] [facility] [place] [place] [facility] Sep 04, 2021 09:00 AM VA-TOBACCO QUIT 5 TO < 15 YRS [place] [facility] [place] [facility] Jul 20, 2020 08:30 AM VA-TOBACCO FORMER USER [place] [facility] [place] [place] [facility] Jul 20, 2020 08:30 AM VA-TOBACCO QUIT 5 TO < 15 YRS [place] [facility] [place] [facility] Dec 05, 2017 11:14 AM QUIT TOBACCO USE > 7 YEARS AGO [place] [facility] [place] [facility] Encounter Notes: All associated encounter notes This section contains the clinical notes associated to the Encounter. Date/Time Encounter Note(s) Provider Source Jun 23, 2023 08:50 AM NEUROLOGY OUTPATIE NT NOTE: LOCAL TITLE: NEUROLOGY CLINIC NOTE STANDARD TITLE: NEUROLOGY OUTPATIENT NOTE DATE OF NOTE: JUN 23, 2023@08:50 ENTRY DATE: JUN 23, 2023@08:50:48 AUTHOR: ANA LILIA ALY COSIGNER: URGENCY: STATUS: COMPLETED Chief Complaint: Multiple Sclerosis Interval Hx Jun Pt continues to be seen by Dr. 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 He tolerated first (split) dosing of Ocrevus without problem, and has been free from any new symptom or issue. He specifically denies any visual issues (diplopia, red desat, pain), appendicular or axial weakness, loss of bowel/bladder function, falling, or worsening of his gait. Pt o/w denies any new issues, illness, injuries, hospitalizations, or concerns. NEUROLOGIC EXAM: Gen: WD WN WM in NAD, appropriate affect, eye contact and social interaction. MS: AAO to Person/Place/Situation Able to maintain attention to conversation and follow directions on exam without distractability, impersistence, or perseveration. Fluent language and intact comprehension, without any paraphasic errors. Normal prosody and word variability/richness. CRANIAL NERVES: -II: Pupils equal, round. VF intact in all 4q OU. -III,IV,: Versions full. No nystagmus. No ptosis. -V: MOMI. -VII: Face is symmetric at rest. Expressiveness intact and symmetric -VIII: Hearing is grossly intact. -IX/X: Speech is w/o hypophonia, dysphonia, dysarthria, or hoarseness MOTOR: Upper (Shld int/ext rotate, bi/tri, wrist ext/flex, fing ext/spread/opp) 5/5 in RUE proximally and distally 5/5 in LUE proximally and distally Lower (hip e/f, hip int/ext rotate, knee e/f, dors/plant flex, invert/mellisa) 5/5 in RLE proximally and distally 5/5 in LLE proximally and distally No Matched effort, no give-way strength No pronator drift, no posting No atrophy or hypertrophy noted No tremor, bradykinesia, dystonic posturing, dyskinesias, chorea, or myoclonus. COORDINATION: Fine finger movements rapid, no microkinesia or bradykinesia Rapid Alternating movements of hands--no dysdiadokinesia. Heel-garrido tap--accurate, and regular distance and timing GAIT/STANCE: Rises from sitting without difficulty. Posture and stance are normal. No start hesitation. [place] gait with normal stride length, height, speed and arm swing. Able to perform heel/toe walk, and tandem gait, without imbalance. Romberg negative, with distracting task Vitals Enter at: Jun 23, 2023@08:37:01 BP: 124/78 P: 67 R: 18 T: 97.5 192.4 lb [87.27 kg] (06/23/2023 08:37) Assessment/Plan: Pt w/MS, no new flares or symptoms, recently transitioned from Tysabri to Ocrevus following two +JCV tests. He continues to f/u with Dr. Hicks. Pt to call if new issues. Ana Lilia Aly MD Staff Neurologist [facility] ~30 mins spent on exam, assessment, counseling, and coordination [ X ] Management of Neurologic Condition was reassessed, taking into account pt's complex other medical issues and medications. [ X ] ~50% of exam was spent on discussion and education or coordination Medication Rec per Resource Protection Specialist Nursing note on Jun@08:54. NO DISCREPANCIES FOUND other than those listed in note. The patient's medication list/medication history to include Local Active VA Prescriptions, Remote Active VA Prescriptions, Non-VA medications, Recently VA Prescriptions (90-180 days), Recently Discontinued VA Prescriptions (90-180 days), and Pending Medication Orders where relevant (e.g., patient is seen by multiple providers in the same day) was compared with CPRS and reviewed with the patient/caregiver and reconciled. Any changes in medications and any medications prescribed by this provider discontinued are documented in this note. Medications not prescribed by this provider will be addressed by pt's PCM or appropriate specialty provider. Discussed risks and possible benefits and mechanism of action of medications prescribed. Pt indicated understanding of the risks of medications, and all questions were answered to pt's satisfaction /es/ ANA LILIA ALY MD PHYSICIAN Signed: 06/23/2023 08:58 ANA LILIA ALY [facility]
--- OUTSIDE RECORDS SUMMARY | 2024-06-04 15:24 | XMS_ITS ---
Author Name [facility] [place] Organization [place] Address [address] [place] [id number] Care Team Providers Care Electric Train Driver Name Role Phone HEIDI KRAMER Primary Care [...] SELF PLUS ONE May 28, [phone] [id number] GAUTAM PIERRE PATIENT CAREMARK-F EP BCBS PRESCRIPT ION FEP CAREM ARK May 19, 2010 [id number] GAUTAM PIERRE PATIENT [employer] TRICA RE DODA May 19, 2022 DODA [id number] GAUTAM PIERRE PATIENT [employer] RX PRESCRIPT ION RX May 19, 2022 THPRX [id number] GAUTAM PIERRE PATIENT [facility] POINT OF SERVICE POS 2021 [id number] [phone] [id number] GAUTAM PIERRE PATIENT [facility] TON MAR 2021 [id number] [phone] GAUTAM PIERRE [facility]IENT [facility]IS[facility]LL 2021 [facility] [id number] GAUTAM PIERRE PATIENT [facility] Barlow 2021 [facility] [id number] 91 GAUTAM PIERRE PATIENT Selected Encounter This section includes the information on record at [place] for the Encounter. Date/Time Encounter Type Encounter Description Reason Provider Source Jul 21, 2023 12:54 PM Outpatient Encounter NEUROLOGY ANA LILIA ALY Cain Encounter Template Text not used by [place] Plan of Treatment: Future Appointments (+ 6 months) and Future Tests (+/- 45 days) The Plan of Treatment section includes future care activities for the patient from all [place] [facility]. This section includes future appointments and future orders which are active, pending or scheduled. Future Appointments This section includes appointments that were scheduled to occur 6 months from the date of the Encounter, up to a maximum of 20 appointments. The data comes from all [place] treatment facilities. Appointment Date/Time Appointment Type Appointme nt Facility Name September 19, 2023 09:30 AM [facility] September 29, 2023 08:30 AM [facility] Nov 04, 2023 08:20 AM [facility]UL[facility] Social History: Smoking Status (Most current) and Tobacco Use (All prior to encounter date) This section includes the most current, and the historical, smoking and tobacco- related health factors from the [place] facility where the Encounter took place. Current Smoking Status This section includes the most current smoking, or tobacco-related health factor, from the [place] facility where the Encounter took place. Date/Time Current Smoking Status Comment Facil ity Sep 11, 2022 10:30 AM [place]-TOBACCO [facility] Tobacco Use History This section includes a history of the smoking, or tobacco-related health factors, that were collected on or before the date of the Encounter. The data comes from the [place] facility where the Encounter took place. Date/Time Smoking Status/Tobacco Use Comment F acility Sep 11, 2022 10:30 AM VA-TOBACCO QUIT 5 TO < 15 YRS [place] [facility] [place] [place] [facility] Sep 04, 2021 09:00 AM VA-TOBACCO FORMER USER [facility] [place] [facility] Sep 04, 2021 09:00 AM VA-TOBACCO QUIT 5 TO < 15 YRS [place] [facility] [place] [facility] Jul 20, 2020 08:30 AM VA-TOBACCO FORMER USER [place] [facility] [place] [facility] Jul 20, 2020 08:30 AM VA-TOBACCO QUIT 5 TO < 15 YRS [place] [facility] [place] [facility] Dec 05, 2017 11:14 AM QUIT TOBACCO USE > 7 YEARS AGO [place] [facility] Encounter Notes: All associated encounter notes This section contains the clinical notes associated to the Encounter. Date/Time Encounter Note(s) Provider Source Jul 21, 2023 12:54 PM NEUROLOGY SECURE MESSAGING: LOCAL TITLE: NEUROLOGY SECURE MESSAGING STANDARD TITLE: NEUROLOGY SECURE MESSAGING DATE OF NOTE: JUL 21, 2023@12:54 ENTRY DATE: JUL 21, 2023@12:54:08 AUTHOR: ANA LILIA ALY EXP COSIGNER: URGENCY: STATUS: COMPLETED ------Original Message ------ Sent: 07/21/2023 08:35 AM ET From: MIREYA PIERRE To: NEUROLOGY_[facility]@ Subject: Medication:Medication refills Good morning Dr Leach, These two prescriptions are out of refills. Sertraline 100 MG, Bupropion 300 MG. Thank-Domo enriquez ------Original Message ------ Sent: 07/21/2023 12:52 PM ET From: ANA LILIA ALY To: MIREYA PIERRE Subject: Medication:Medication refills Mr. Pierre, I have renewed those medications. They should be mailed out shortly. RDr. Aly /[place]/ ANA LILIA ALY MD PHYSICIAN Signed: 07/21/2023 12:54 ANA LILIA ALY [facility]
--- OUTSIDE RECORDS SUMMARY | 2024-06-04 15:25 | XMS_ITS ---
Author Name [facility] [place] Organization [facility] [place] Address [address] [place] [id number] Care Team Providers Care Talent Specialist Name Role Phone HEIDI HERRING Primary Care Provider Unavailabl e Insurance Providers: [...] SELF PLUS ONE May 28, 2015 [id number] GAUTAM MARCELO PATIENT [employer]-F EP BCBS PRESCRIPT ION FEP CAREM ARK May 19, 2010 [id number] GAUTAM MARCELO PATIENT [facility] RE DODA May 19, 2022 DODA [id number] GAUTAM MARCELO PATIENT [facility] RX PRESCRIPT ION RX May 19, 2022 THPRX [id number] GAUTAM MARCELO PATIENT [facility] POS 2021 [id number] GAUTAM MARCELO PATIENT [facility] TON MAR 2021 [id number] [phone] GAUTAM MARCELO PATIENT [facility] DRISCOLL 2021 [id number] GAUTAM MARCELO [facility]IENT [facility] BREANNA Barlow 2021 [facility] [id number] [phone] GAUTAM MARCELO PATIENT Selected Encounter This section includes the information on record at [place] for the Encounter. Date/Time Encounter Type Encounter Description Reason Provider Source September 19, 2023 06:25 PM Outpatient Encounter PRIMARY CARE/MEDICINE HEIDI HERRING [facility] Encounter Template Text not used by [place] Plan of Treatment: Future Appointments (+ 6 months) and Future Tests (+/- 45 days) The Plan of Treatment section includes future care activities for the patient from all [place] treatmentfacilities. This section includes future appointments and future orders which are active, pending or scheduled. Future Appointments This section includes appointments that were scheduled to occur 6 months from the date of the Encounter, up to a maximum of 20 appointments. The data comes from all [place] treatment facilities. Appointment Date/Time Appointment Type Appointme nt Facility Name September 29, 2023 08:30 AM AMBULATORY - MEDICINE [facility] [place] [facility] Nov 04, 2023 08:[address] [facility] [place] [facility] Mar 19, 2024 10:30 AM AMBULATORY - MEDICINE [facility] Lab Results: +/- 30 days of the encounter This section includes the Chemistry and Hematology Lab Results on record with [place] for the patient. Radiology Reports and Pathology Reports are provided separately, in subsequent sections. Lab Results This section contains the Chemistry/Hematology Results that were resulted 30 days before or 30 daysafter the date of the Encounter. Date/Time Source Result Type Result - Unit Interpretation Reference Range Comment Sep 10, 2023 07:53 AM [facility] LIVER FUNCTION Specimen Type: SERUM No comment entered. Ordering Provider: HEIDI HERRING Report Released Date/Time: Sep 06, 2023 06:54 PM Reporting Lab: [address] [address] Performing Lab: [facility] [address] [address] PROTEIN,TOTAL 6.5 g/dL 6.0-8.3 ALBUMIN 4.0 g/dL 3.5-5.0 ALKALINE PHOSPHATASE 55 U/L 40-150 AST 25 U/L 5-34 ALT 20 U/L BILIRUBIN, TOTAL 0.6 mg/dL 0.2-1.2 Sep 10, 2023 07:53 AM [facility] LIPID PANEL FASTING Specimen Type: SERUM No comment entered. Ordering Provider: HEIDI HERRING Report Released Date/Time: Sep 06, 2023 06:54 PM Reporting Lab: [address] [address] Performing Lab: [address] [address] CHOLESTEROL 219 mg/dL H TRIGLYCERIDE 66 mg/dL 0-150 LDL calculated 141 mg/dL H 0-129 CHOL/HDL 3.4 HDL CHOLESTEROL 65 mg/dL H 40-60 Sep 10, 2023 07:53 AM [facility] BASIC METABOLIC PANEL (fasting) Specimen Type: SERUM No comment entered. Ordering Provider: HEIDI HERRING Report Released Date/Time: Sep 06, 2023 06:54 PM Reporting Lab: [address] [address] Performing Lab: [address] [address] UREA NITROGEN 15 mg/dL 7-25 GLUCOSE 96 mg/dL 65-100 SODIUM 141 mmol/L 135-145 POTASSIUM 4.8 mmol/L 3.5-5.0 CHLORIDE 107 mmol/L 100-110 CO2 26 meq/L 20-30 CREATININE, Serum 0.93 mg/dL 0.50-1.40 eGFR(CKD-EPI 2020) >90 mL/min >60 Sep 10, 2023 07:53 AM [facility] CBC AND DIFF (AUTO) Specimen Type: BLOOD No comment entered. Ordering Provider: HEIDI HERRING Report Released Date/Time: Sep 06, 2023 06:54 PM Reporting Lab: [address] [place] [address] Performing Lab: [facility] [address] [facility] [address] WBC 4.31 10*3/uL L 4.50-11.00 RBC 5.14 10*6/uL 4.23-5.66 HGB 14.8 g/dL 12.8-17 HCT 44.2 39.2-50.4 MCV 86.0 fL 82-99 MCHC 33.5 g/dL 30.8-35.1 PLT 208 10*3/uL 140-360 RDW-CV 12.8 12.0-16.0 [place], Abs 0.41 10*3/uL 0.30-1.10 MCH 28.8 pg 26.2-32.6 Neut % 62.6 43.7-75.8 Lymph % 23.0 14.0-42.3 [place] % 9.5 5.1-13.7 Eos % 3.5 0.4-6.8 Baso % 0.9 0.1-2.0 Neut, Abs 2.70 10*3/uL 2.20-7.60 Lymph, Abs 0.99 10*3/uL L 1.00-3.20 Eos, Abs 0.15 10*3/uL 0.03-0.44 Baso, Abs 0.04 10*3/uL 0.01-0.13 Immature Gran % 0.5 0.0-0.7 Immature Gran, Abs 0.02 10*3/uL 0.00-0.06 Sep 10, 2023 07:53 AM [facility] TSH Specimen Type: SERUM No comment entered. Ordering Provider: HEIDI HERRING Report Released Date/Time: Sep 06, 2023 06:54 PM Reporting Lab: [facility] [address] [facility] [address] Performing Lab: [address] [address] TSH 0.67 u[IU]/mL 0.35-5.00 Sep 10, 2023 07:53 AM [facility] PSA Specimen Type: SERUM No comment entered. Ordering Provider: HEIDI HERRING Report Released Date/Time: Sep 06, 2023 06:54 PM Reporting Lab: [address] [address] Performing Lab: [address] [address] PSA 2.95 ng/mL 0.00-4.00 Sep 10, 2023 07:53 AM [facility] MICROSCOPIC AUTOMATED, URINE Specimen Type: URINE Comment: If Glucose = >500 and Ketones are positive, please alert the Physician. Ordering Provider: HEIDI HERRING Report Released Date/Time: Sep 06, 2023 06:54 PM Reporting Lab: [address] [address] Performing Lab: [address] [address] UA WBC 0-5 /[HPF] 0-5 UA MUCUS FEW /[LPF] Trace UA RBC 0-2 /[HPF] 0-3 Sep 10, 2023 07:53 AM [facility] URINALYSIS CLEAN CATCH Specimen Type: URINE Comment: If Glucose = >500 and Ketones are positive, please alert the Physician. Ordering Provider: HEIDI HERRING Report Released Date/Time: Sep 06, 2023 06:54 PM Reporting Lab: [address] [address] Performing Lab: [address] [address] UA COLOR Yellow Yellow UA APPEARANCE Clear Clear UA GLUCOSE NEGATIVE mg/dL Negative UA KETONES TRACE mg/dL Negative UA BLOOD NEGATIVE mg/dL Negative UA PROTEIN 20 mg/dL Negative UA NITRITE NEGATIVE mg/dL Negative UA BILIRUBIN NEGATIVE mg/dL Negative UA SPECIFIC GRAVITY 1.033 H 1.016-1.022 UA pH 6.0 5.0-9.0 UA UROBILINOGEN <2.0 mg/dL <2.0 UA LEUKOCYTE TRACE Negative Vital Signs: All taken on the encounter date This section contains inpatient and outpatient Vital Signs collected on the date of the Encounter. Date/Time Temperature Pulse Blood Pressure Respiratory Rate SP02 Pain Height Weight Body Mass Index Source September 19, 2023 09:30 AM 134/74 [place] [facility] [place] [place] [facility] September 19, 2023 09:21 AM 98.7 59 16 95 0 68 193.7 30 [place] [facility] [place] [facility] Social History: Smoking Status (Most current) and Tobacco Use (All prior to encounter date) This section includes the most current, and the historical, smoking and tobacco- related health factors from the [place] facility where the Encounter took place. Current Smoking Status This section includes the most current smoking, or tobacco-related health factor, from the [place] facility where the Encounter took place. Date/Time Current Smoking Status Comment Facil ity September 19, 2023 09:30 AM VA-TOBACCO FORMER USER [place] [facility] [place] [facility] Tobacco Use History This section includes a history of the smoking, or tobacco-related health factors, that were collected on or before the date of the Encounter. The data comes from the [place] facility where the Encounter took place. Date/Time Smoking Status/Tobacco Use Comment F acility September 19, 2023 09:30 AM VA-TOBACCO QUIT 15 YRS OR MORE [facility] [place] [facility] Sep 11, 2022 10:30 AM VA-TOBACCO FORMER USER [place] [facility] [place] [facility] Sep 11, 2022 10:30 AM VA-TOBACCO QUIT 5 TO < 15 YRS [facility] [place] [facility] Sep 04, 2021 09:00 AM VA-TOBACCO FORMER USER [place] [facility] [place] [facility] Sep 04, 2021 09:00 AM VA-TOBACCO QUIT 5 TO < 15 YRS [facility] [place] [facility] Jul 20, 2020 08:30 AM VA-TOBACCO FORMER USER [facility] [place] [facility] Jul 20, 2020 08:30 AM VA-TOBACCO QUIT 5 TO < 15 YRS [facility] [place] [facility] Dec 05, 2017 11:14 AM QUIT TOBACCO USE > 7 YEARS AGO [facility] [place] [facility] Encounter Notes: All associated encounter notes This section contains the clinical notes associated to the Encounter. Date/Time Encounter Note(s) Provider Source September 19, 2023 06:25 PM PRIMARY CARE SECUR E MESSAGING: LOCAL TITLE: PRIMARY CARE SECURE MESSAGING STANDARD TITLE: PRIMARY CARE SECURE MESSAGING DATE OF NOTE: SEPTEMBER 19, 2023@18:25 ENTRY DATE: SEPTEMBER 19, 2023@19:25:16 AUTHOR: HEIDI HERRING EXP COSIGNER: URGENCY: STATUS: COMPLETED ------Original Message -------- Sent: 09/19/2023 07:24 PM ET From: HEIDI HERRING To: MIREYA MARCELO Subject: General:General Inquiry MIREYA MARCELO [address], [place], [address] September 19, 2023 Dear [place], ECG was performed 09-19-2023. It showed normal rhythm. Rate was slightly decreased. This may be due to medications you are taking. This requires no intervention. Please contact me if you have questions. Respectfully, Heidi Herring MD /[place]/ Heidi Herring MD Staff Physician Signed: 09/19/2023 19:25 HEIDI HERRING [facility]
--- OUTSIDE RECORDS SUMMARY | 2024-06-04 15:25 | XMS_ITS ---
Author Name [facility] ([place] Address [address] [place] [id number] Care Team Providers Care Stitch Separator Name Role Phone HEIDI HERRING Primary Care [...] SELF PLUS ONE May 28, [phone] [id number] GAUTAM MARCELO PATIENT [facility]-F EP BCBS PRESCRIPT ION FEP CAREM ARK May 19, 2010 [id number] GAUTAM MARCELO PATIENT [facility] TRICA RE DODA May 19, 2022 DODA [id number] GAUTAM MARCELO PATIENT [facility] RX PRESCRIPT ION RX May 19, 2022 THPRX [id number] GAUTAM MARCELO PATIENT [facility] POINT OF SERVICE POS 2021 [id number] GAUTAM MARCELO PATIENT [facility] 2021 [facility] [id number] [phone] GAUTAM MARCELO PATIENT [facility] Jo Ann -NILESH DRISCOLL 2021 [facility] [id number] GAUTAM MARCELO PATIENT [facility] [place] 2021 [facility] [id number] 91 GAUTAM MARCELO PATIENT Selected Encounter This section includes the information on record at [place] for the Encounter. Date/Time Encounter Type Encounter Description Reason Provider Source September 19, 2023 09:30 AM OFFICE O/P EST LOW 20 MIN PRIMARY CARE/MEDICINE ICD-10-CM J45.998 Other asthma HEIDI HERRING [facility] Encounter Template Text not used by [place] Assessments - Encounter Diagnoses This section includes the primary and secondary diagnoses documented for the Encounter. Date/Time Primary/Secondary Diagnosis Diagnosis Name Provider Source September 19, 2023 10:00 AM PRIMARY Other asthma HE[facility]I [facility]ERR[facility] September 19, 2023 10:00 AM SECONDARY Encounter for immunization CORTEZ KEARNEY [facility] September 19, 2023 10:00 AM SECONDARY Multiple sclerosis HEIDI HERRING [facility] Plan of Treatment: Future Appointments (+ 6 months) and Future Tests (+/- 45 days) The Plan of Treatment section includes future care activities for the patient from all [place] treatmentfacilities. This section includes future appointments and future orders which are active, pending or scheduled. Future Appointments This section includes appointments that were scheduled to occur 6 months from the date of the Encounter, up to a maximum of 20 appointments. The data comes from all [place] treatment facilities. Appointment Date/Time Appointment Type Appointme nt Facility Name September 29, 2023 08:30 AM AMBULATORY - MEDICINE [facility] Nov 04, 2023 08:20 AM AMBULAT[facility] - MEDIC[facility] Mar 19, 2024 10:30 AM [facility] Lab Results: +/- 30 days of the encounter This section includes the Chemistry and Hematology Lab Results on record with [place] for the patient. Radiology Reports and Pathology Reports are provided separately, in subsequent sections. Lab Results This section contains the Chemistry/Hematology Results that were resulted 30 days before or 30 daysafter the date of the Encounter. Date/Time Source Result Type Result - Unit Interpretation Reference Range Comment Sep 10, 2023 07:[address] [facility] LIVER FUNCTION Specimen Type: SERUM No comment entered. Ordering Provider: HEIDI HERRING Report Released Date/Time: Sep 06, 2023 06:54 PM Reporting Lab: [address] [phone] Performing Lab: [address] [address] PROTEIN,TOTAL 6.5 g/dL 6.0-8.3 ALBUMIN 4.0 g/dL 3.5-5.0 ALKALINE PHOSPHATASE 55 U/L 40-150 AST 25 U/L 5-34 ALT 20 U/L BILIRUBIN, TOTAL 0.6 mg/dL 0.2-1.2 Sep 10, 2023 07:[address] [facility] LIPID PANEL FASTING Specimen Type: SERUM No comment entered. Ordering Provider: HEIDI HERRING Report Released Date/Time: Sep 06, 2023 06:54 PM Reporting Lab: [address] [phone] Performing Lab: [address] [phone] CHOLESTEROL 219 mg/dL H TRIGLYCERIDE 66 mg/dL 0-150 LDL calculated 141 mg/dL H 0-129 CHOL/HDL 3.4 HDL CHOLESTEROL 65 mg/dL H 40-60 Sep 10, 2023 07:[address] [facility] BASIC METABOLIC PANEL (fasting) Specimen Type: SERUM No comment entered. Ordering Provider: HEIDI HERRING Report Released Date/Time: Sep 06, 2023 06:54 PM Reporting Lab: [address] [phone] Performing Lab: [address] [address] UREA NITROGEN 15 mg/dL 7-25 GLUCOSE 96 mg/dL 65-100 SODIUM 141 mmol/L 135-145 POTASSIUM 4.8 mmol/L 3.5-5.0 CHLORIDE 107 mmol/L 100-110 CO2 26 meq/L 20-30 CREATININE, Serum 0.93 mg/dL 0.50-1.40 eGFR(CKD-EPI 2020) >90 mL/min >60 Sep 10, 2023 07:[address] [facility] CBC AND DIFF (AUTO) Specimen Type: BLOOD No comment entered. Ordering Provider: HEIDI HERRING Report Released Date/Time: Sep 06, 2023 06:54 PM Reporting Lab: [facility] [address] [facility] [address] Performing Lab: [facility] [address] [facility] [address] WBC 4.31 10*3/uL L 4.50-11.00 RBC 5.14 10*6/uL 4.23-5.66 HGB 14.8 g/dL 12.8-17 HCT 44.2 39.2-50.4 MCV 86.0 fL 82-99 MCHC 33.5 g/dL 30.8-35.1 PLT 208 10*3/uL 140-360 RDW-CV 12.8 12.0-16.0 [place], Abs 0.41 10*3/uL 0.30-1.10 MCH 28.8 pg 26.2-32.6 Neut % 62.6 43.7-75.8 Lymph % 23.0 14.0-42.3 [place] % 9.5 5.1-13.7 Eos % 3.5 0.4-6.8 Baso % 0.9 0.1-2.0 Neut, Abs 2.70 10*3/uL 2.20-7.60 Lymph, Abs 0.99 10*3/uL L 1.00-3.20 Eos, Abs 0.15 10*3/uL 0.03-0.44 Baso, Abs 0.04 10*3/uL 0.01-0.13 Immature Gran % 0.5 0.0-0.7 Immature Gran, Abs 0.02 10*3/uL 0.00-0.06 Sep 10, 2023 07:[address] [facility] TSH Specimen Type: SERUM No comment entered. Ordering Provider: HEIDI HERRING Report Released Date/Time: Sep 06, 2023 06:54 PM Reporting Lab: [facility] [address] [facility] [address] Performing Lab: [address] [address] TSH 0.67 u[IU]/mL 0.35-5.00 Sep 10, 2023 07:[address] [facility] PSA Specimen Type: SERUM No comment entered. Ordering Provider: HEIDI HERRING Report Released Date/Time: Sep 06, 2023 06:54 PM Reporting Lab: [address] [address] Performing Lab: [address] [address] PSA 2.95 ng/mL 0.00-4.00 Sep 10, 2023 07:[address] [facility] MICROSCOPIC AUTOMATED, URINE Specimen Type: URINE Comment: If Glucose = >500 and Ketones are positive, please alert the Physician. Ordering Provider: HEIDI HERRING Report Released Date/Time: Sep 06, 2023 06:54 PM Reporting Lab: [address] [phone] Performing Lab: [address] [address] UA WBC 0-5 /[HPF] 0-5 UA MUCUS FEW /[LPF] Trace UA RBC 0-2 /[HPF] 0-3 Sep 10, 2023 07:[address] [facility] URINALYSIS CLEAN CATCH Specimen Type: URINE Comment: If Glucose = >500 and Ketones are positive, please alert the Physician. Ordering Provider: HEIDI HERRING Report Released Date/Time: Sep 06, 2023 06:54 PM Reporting Lab: [address] [address] Performing Lab: [address] [address] UA COLOR Yellow Yellow UA APPEARANCE Clear [...] Source September 19, 2023 09:30 AM 134/[facility] September 19, 2023 09:21 AM 98.7 59 16 95 0 68 193.7 30 [facility] Immunizations: All administered on the encounter date This section contains immunizations associated to the Encounter. Immunization Series Date Issued Reaction Comments COVID-19 (MODERNA), MRNA, LN P-S, PF, 50 MCG/0.5 ML (AGES 12+ YEARS) 6 September 19, 2023 Social History: Smoking Status (Most current) and Tobacco Use (All prior to encounter date) This section includes the most current, and the historical, smoking and tobacco- related health factors from the [place] facility where the Encounter took place. Current Smoking Status This section includes the most current smoking, or tobacco-related health factor, from the PR facility where the Encounter took place. Date/Time Current Smoking Status Comment King martinez September 19, 2023 09:30 AM VA-TOBACCO FORMER USER [facility] Tobacco Use History This section includes a history of the smoking, or tobacco-related health factors, that were collected on or before the date of the Encounter. The data comes from the [place] facility where the Encounter took place. Date/Time Smoking Status/Tobacco Use Comment F acannelise September 19, 2023 09:30 AM VA-TOBACCO QUIT 15 YRS OR MORE [facility] [place] [facility] Sep 11, 2022 10:30 AM VA-TOBACCO FORMER USER [facility] Sep 11, 2022 10:30 AM PR-TOBACCO QUIT 5 TO < 15 YRS [facility] [place] [facility] Sep 04, 2021 09:00 AM VA-TOBACCO FORMER USER [facility] [place] [facility] Sep 04, 2021 09:00 AM VA-TOBACCO QUIT 5 TO < 15 YRS [facility] [place] [facility] Jul 20, 2020 08:30 AM VA-TOBACCO FORMER USER [facility] [place] [facility] Jul 20, 2020 08:30 AM VA-TOBACCO QUIT 5 TO < 15 YRS [facility] [place] [facility] Dec 05, 2017 11:14 AM QUIT TOBACCO USE > 7 YEARS AGO [place] [facility] [place] [facility] Encounter Notes: All associated encounter notes This section contains the clinical notes associated to the Encounter. Date/Time Encounter Note(s) Provider Source September 19, 2023 07:21 PM PHYSICIAN NOTE: LOCAL TITLE: NOTE STANDARD TITLE: PHYSICIAN NOTE DATE OF NOTE: SEPTEMBER 19, 2023@19:21 ENTRY DATE: SEPTEMBER 19, 2023@19:21:46 AUTHOR: HEIDI HERRING EXP COSIGNER: URGENCY: STATUS: COMPLETED Review of recent testing ECG 09-19-2023 Sinus bradycardia at 50 UT 0.15, QRS 0.89, QT 0.40 No significant change compared with 04-16-2019 /[place]/ Heidi Herring MD Staff Physician Signed: 09/19/2023 19:22 HEIDI HERRING [facility] September 19, 2023 10:41 AM CARDIOLOGY DIAGNOS TIC STUDY CONSULT: LOCAL TITLE: CONSULT REPORT/EKG STANDARD TITLE: CARDIOLOGY DIAGNOSTIC STUDY CONSULT DATE OF NOTE: SEPTEMBER 19, 2023@10:41 ENTRY DATE: SEPTEMBER 19, 2023@10:41:37 AUTHOR: VILLA KEARNEY EXP COSIGNER: URGENCY: STATUS: COMPLETED EKG tracing was performed for diagnosis of multiple sclerosis ordered by HEIDI HERRING /[place]/ VILLA KEARNEY LPN LPN Signed: 09/19/2023 10:42 VILLA KEARNEY [place] [facility] [place] [facility] September 19, 2023 09:55 AM PHYSICIAN NOTE: LOCAL TITLE: NOTE STANDARD TITLE: PHYSICIAN NOTE DATE OF NOTE: SEPTEMBER 19, 2023@09:55 ENTRY DATE: SEPTEMBER 19, 2023@09:55:23 AUTHOR: HEIDI HERRING COSIGNER: URGENCY: STATUS: COMPLETED Patient Name: MIREYA MARCELO VITALS: Patient temperature: 98.7 F [37.1 C] (09/19/2023 09:21) Blood pressure: 134/74 (09/19/2023 09:30) Patient height: 68 in [172.7 cm] (09/19/2023 09:21) Patient weight: 193.7 lb [87.86 kg] (09/19/2023 09:21) Patient BMI: BMI: 29.5 Patient pulse: 59 (09/19/2023 09:21) Patient respiration: 16 (09/19/2023 09:21) Patient Pulse Oximetry: 95% (09/19/2023 09:21) Pain Ratin (09/19/2023 09:21) Active [facility] Medications: Active Outpatient Medications (including Supplies): Active Outpatient Medications Status 1) BUPROPION HCL 300MG 24HR SA TAB TAKE ONE TABLET BY ACTIVE MOUTH ONCE DAILY 2) GABAPENTIN 300MG CAP TAKE TWO CAPSULES BY MOUTH TWICE ACTIVE DAILY FOR PAIN, ANXIETY, POOR SLEEP, AND HEADACHES 3) MONTELUKAST NA 10MG TAB TAKE ONE TABLET BY MOUTH AT ACTIVE BEDTIME FOR ASTHMA 4) PRAVASTATIN NA 40MG TAB TAKE ONE TABLET BY MOUTH AT ACTIVE BEDTIME FOR CHOLESTEROL 5) SERTRALINE HCL 100MG TAB TAKE ONE TABLET BY MOUTH ACTIVE ONCE DAILY 6) TRIAMCINOLONE ACETONIDE 0.1% CREAM APPLY A MODERATE ACTIVE AMOUNT TOPICALLY TWICE DAILY Pending Outpatient Medications Status 1) ALBUTEROL 90MCG (CFC-F) 200D ORAL INHL INHALE 2 PUFFS PENDING BY MOUTH FOUR TIMES DAILY NEEDED 2) TAMSULOSIN HCL 0.4MG CAP TAKE ONE CAPSULE BY MOUTH AT PENDING BEDTIME Active Non-VA Medications Status 1) Non-VA NATALIZUMAB 20MG/ML SOLN INJ 15ML 300MG ACTIVE INTRAVENOUSLY EVERY MONTH 9 Total Medications Remote Medications: No Active Remote Medications for this patient arts and sciences dean note Chief complaint: Asthma History of present illness Takes montelukast daily. Intermittent symptoms are well controlled with albuterol inhaler. Feels well today with no complaints. Review of systems No chest pain or dyspnea No abdominal pain No trouble urination No fever or chills No cough Physical examination Well-developed well-nourished male no acute distress coronary no murmur Lungs clear Carotid no bruit No peripheral edema WBC/HPF: 0-5 RBC/HPF: 0-2 MUCUS: FEW Color, Urine (AX 4280): Yellow Appearance, Urine (AX 4280): Clear Glucose, Urine (AX 4280): NEGATIVE Ketones, Urine (AX 4280): TRACE Blood, Urine (AX 4280): NEGATIVE Protein, Urine (AX 4280): 20 Nitrite, Urine (AX 4280): NEGATIVE Bilirubin, Urine (AX 4280): NEGATIVE Specific [place], (AX 4280): 1.033 H pH, Urine (GH8071): 6.0 Urobilinogen, Urine (AX 4280): <2.0 Leukocyte Esterase, (AX 4280): TRACE GLUCOSE: 96 UREA NITROGEN: 15 SODIUM: 141 POTASSIUM: 4.8 CHLORIDE: 107 CO2: 26 CHOLESTEROL: 219 H PROTEIN,TOTAL: 6.5 ALBUMIN: 4.0 ALKALINE PHOSPHATASE: 55 SGOT: 25 SGPT: 20 TRIGLYCERIDE: 66 LDL CHOL: 141 H CHOL/HDL RATIO: 3.4 PROSTATIC SP ANTIGEN: 2.95 HDL: 65 H BILIRUBIN,TOT.: 0.6 TSH (Access): 0.67 CREATININE-EGFR: 0.93 eGFR CKD-EPI 2020: >90 WBC: 4.31 L RBC: 5.14 HGB: 14.8 HCT: 44.2 MCV: 86.0 MCHC: 33.5 RDW: 12.8 PLT: 208 MCH: 28.8 Neut %: 62.6 Lymph %: 23.0 [place] %: 9.5 Eos %: 3.5 Baso %: 0.9 Neut, Abs: 2.70 Lymph, Abs: 0.99 L [place], Abs: 0.41 Eos, Abs: 0.15 Baso, Abs: 0.04 Immature Granulocytes %: 0.5 Immature Granulocytes, Abs: 0.02 I discussed above test results with patient Assessment and plan: 1. Asthma: Well-controlled with montelukast and albuterol Plan: Continue above 2. Multiple sclerosis: Followed by neurology Dr. Grubbs in [place]. Clinically stable Plan: Continue above ECG today Follow-up 6 months clinic visit and lab Patient has had 2 doses of shingles vaccine privately Medication Reconciliation: Outpatient: Has the patient been taking medications as documented in the EMLR? YES: The patient has been taking medications as documented in the EMLR. Essential Medication List for Review used to complete this medication reconciliation. INCLUDED IN THIS LIST: Alphabetical list of active outpatient prescriptions dispensed from this [place] (local) and dispensed from another [place] or DoD facility (remote) as well as inpatient orders (local, pending and active), local clinic medications, locally documented non-VA medications, and local prescriptions that have or been discontinued in the past 90 days. - All changes in medications, including all non-VA/Herbal/OTC medications were entered into CPRS. - If there were any medications the patient should no longer take, they were discontinued. - The patient/caregiver was instructed to update this list, discard old lists, and take this list to the next appointment, whether with a VA or non-VA provider. + /[place]/ Heidi Herring MD Staff Physician Signed: 09/19/2023 10:00 HEIDI HERRING [place] [facility] [place] [facility] September 19, 2023 09:24 AM PREVENTIVE MEDICIN E NURSING NOTE: LOCAL TITLE: CLINICAL REMINDERS/NURSING STANDARD TITLE: PREVENTIVE MEDICINE NURSING NOTE DATE OF NOTE: SEPTEMBER 19, 2023@09:24 ENTRY DATE: SEPTEMBER 19, 2023@09:24:53 AUTHOR: MESSECK,VILLA M EXP COSIGNER: URGENCY: STATUS: COMPLETED CLINICAL REMINDERS/NURSING Has ADDENDA Homelessness/Food Insecurity Screen: In the past 2 months, have you been living in stable housing that you own, rent, or stay in as part of a household? Yes - Living in stable housing. Are you worried or concerned that in the next 2 months you may NOT have stable housing that you own, rent, or stay in as part of a household? No - Not worried about housing near future The reports the following: Within the past 12 months, you worried whether your food would run out before you got money to buy more. Never true Within the past 12 months, the food you bought just didn't last and you didn't have money to get more. Never true Depression Screening: Perform PHQ-2 A PHQ-2 screen was performed. The score was 0 which is a negative screen for depression. Over the past two weeks, how often have you been bothered by the following problems? 1. Little interest or pleasure in doing things Not at all 2. Feeling down, depressed, or hopeless Not at all Advance Directive Screen MH AD: Patient has an up-to-date Advance Directive at an outside, non-va facility and was asked to forward a copy to his/her clinician. Info Only: [facility] Video Connect Capable: Tobacco Use Screening: The patient is a former tobacco user. The patient quit fifteen or more years ago. Alcohol Use Screen (AUDIT-C): Alcohol Screen: SCREEN FOR ALCOHOL (AUDIT-C) An alcohol screening test (AUDIT-C) was negative (score=2). 1. How often did you have a drink containing alcohol in the past year? Consider a drink to be a 12 ounce can or bottle of regular beer, 8 ounces of malt liquor, a 5 ounce glass of table wine, or a 1.5 ounce shot of liquor (like scotch, gin, or vodka). Two to four times a month 2. How many drinks containing alcohol did you have on a typical day when you were drinking in the past year? One or two drinks 3. How often did you have six or more drinks on one occasion in the past year? Never /es/ VILLA KEARNEY LPN LPN Signed: 09/19/2023 09:28 09/19/2023 ADDENDUM STATUS: COMPLETED COVID-19 Immunization: Moderna Monovalent (Spikevax) Administered: COVID-19 (MODERNA), MRNA, LNP-S, PF, 50 MCG/0.5 ML (AGES 12+ YEARS) Date Administered: September 19, 2023 09:30 Series: Series 6 Retouching Operator: [employer]. Lot: [id number] Exp Date: Mar 01, 2024 [facility]: [phone] Admin Route/Site: INTRAMUSCULAR/LEFT DELTOID Dosage: 0.5mL Vaccine Information Statement(s): COVID-19 MRNA VACCINE (12+ YRS) VACCINE VIS Mar 06, 2023 ([place]) Order By: Policy Administered By: [place] Vaccine administered without complications. The patient was advised to remain in the facility for 15 minutes post vaccination. /[place]/ VILLA KEARNEY LPN LPN Signed: 09/19/2023 10:43 VILLA KEARNEY [facility]
--- OUTSIDE RECORDS SUMMARY | 2024-06-04 15:25 | XMS_ITS | Encounter Summary ---
Author Name [facility] [place] Organization [facility] [place] Address [address] [place] [id number] Care Team Providers Care Licensed Audiologist Name Role Phone HEIDI KRAMER Primary Care [...] SELF PLUS ONE May 28, [phone] [id number] GAUTAM MARCELO PATIENT [facility]-F EP BCBS PRESCRIPT ION FEP CAREM ARK May 19, 2010 [id number] [phone] GAUTAM MARCELO PATIENT [facility] TRICA RE DODA May 19, 2022 DODA [id number] GAUTAM MARCELO PATIENT [facility] RX PRESCRIPT ION RX May 19, 2022 THPRX [id number] [facility] POINT OF SERVICE POS 2021 [id number] [phone] GAUTAM MARCELO PATIENT [facility] TON MAR 2021 [id number] GAUTAM MARCELO PATIENT [facility] USP -NILESH DRISCOLL 2021 [facility] [id number] GAUTAM MARCELO PATIENT [facility] BREANNA Barlow 2021 [facility] [id number] 91 GAUTAM MARCELO PATIENT Selected Encounter This section includes the information on record at [place] for the Encounter. Date/Time Encounter Type Encounter Description Reason Pro vider Source Sep 08, 2023 12:56 PM Outpatient Encounter PRIMARY CARE/MEDICINE IHE Encounter Template Text not used by [place] Plan of Treatment: Future Appointments (+ 6 months) and Future Tests (+/- 45 days) The Plan of Treatment section includes future care activities for the patient from all [place] treatmentfacilities. This section includes future appointments and future orders which are active, pending or scheduled. Future Appointments This section includes appointments that were scheduled to occur 6 months from the date of the Encounter, up to a maximum of 20 appointments. The data comes from all [place] treatment facilities. Appointment Date/Time Appointment Type Appointme nt Facility Name September 19, 2023 09:30 AM AMBULATORY - MEDICINE [facility] [place] [facility] September 29, 2023 08:30 AM AMBULATORY MEDICINE [facility] [place] [facility] Nov 04, 2023 08:20 AM AMBULATORY - MEDICINE [facility] Lab Results: +/- 30 days of the encounter This section includes the Chemistry and Hematology Lab Results on record with [place] for the patient. Radiology Reports and Pathology Reports are provided separately, in subsequent sections. Lab Results This section contains the Chemistry/Hematology Results that were resulted 30 days before or 30 daysafter the date of the Encounter. Date/Time Source Result Type Result - Unit Interpretation Reference Range Comment Sep 10, 2023 07:53 AM [facility] L[facility] Specimen Type: SERUM No comment entered. Ordering Provider: HEIDI KRAMER Report Released Date/Time: Sep 06, 2023 06:54 PM Reporting Lab: [address] [address] Performing Lab: [address] [place] [address] PROTEIN,TOTAL 6.5 g/dL 6.0-8.3 ALBUMIN 4.0 g/dL 3.5-5.0 ALKALINE PHOSPHATASE 55 U/L 40-150 AST 25 U/L 5-34 ALT 20 U/L BILIRUBIN, TOTAL 0.6 mg/dL 0.2-1.2 Sep 10, 2023 07:53 AM [facility] LIPID PANEL FASTING Specimen Type: SERUM No comment entered. Ordering Provider: HEIDI KRAMER Report Released Date/Time: Sep 06, 2023 06:54 PM Reporting Lab: [address] [address] Performing Lab: [address] [address] CHOLESTEROL 219 mg/dL H TRIGLYCERIDE 66 mg/dL 0-150 LDL calculated 141 mg/dL H 0-129 CHOL/HDL 3.4 HDL CHOLESTEROL 65 mg/dL H 40-60 Sep 10, 2023 07:53 AM [facility] BASIC METABOLIC PANEL (fasting) Specimen Type: SERUM No comment entered. Ordering Provider: HEIDI KRAMER Report Released Date/Time: Sep 06, 2023 06:54 PM Reporting Lab: [address] [address] Performing Lab: [address] [address] UREA NITROGEN 15 mg/dL 7-25 GLUCOSE 96 mg/dL 65-100 SODIUM 141 mmol/L 135-145 POTASSIUM 4.8 mmol/L 3.5-5.0 CHLORIDE 107 mmol/L 100-110 CO2 26 meq/L 20-30 CREATININE, Serum 0.93 mg/dL 0.50-1.40 eGFR(CKD-EPI 2020) >90 mL/min >60 Sep 10, 2023 07:53 AM [facility] CBC AND DIFF (AUTO) Specimen Type: BLOOD No comment entered. Ordering Provider: HEIDI KRAMER Report Released Date/Time: Sep 06, 2023 06:54 PM Reporting Lab: [address] [address] Performing Lab: [facility] [address] [facility] [address] WBC 4.31 10*3/uL L 4.50-11.00 RBC 5.14 10*6/uL 4.23-5.66 HGB 14.8 g/dL 12.8-17 HCT 44.2 39.2-50.4 MCV 86.0 fL 82-99 MCHC 33.5 g/dL 30.8-35.1 PLT 208 10*3/uL 140-360 RDW-CV 12.8 12.0-16.0 Stark, Abs 0.41 10*3/uL 0.30-1.10 MCH 28.8 pg 26.2-32.6 Neut % 62.6 43.7-75.8 Lymph % 23.0 14.0-42.3 Stark % 9.5 5.1-13.7 Eos % 3.5 0.4-6.8 Baso % 0.9 0.1-2.0 Neut, Abs 2.70 10*3/uL 2.20-7.60 Lymph, Abs 0.99 10*3/uL L 1.00-3.20 Eos, Abs 0.15 10*3/uL 0.03-0.44 Baso, Abs 0.04 10*3/uL 0.01-0.13 Immature Gran % 0.5 0.0-0.7 Immature Gran, Abs 0.02 10*3/uL 0.00-0.06 Sep 10, 2023 07:53 AM [facility] TSH Specimen Type: SERUM No comment entered. Ordering Provider: HEIDI KRAMER Report Released Date/Time: Sep 06, 2023 06:54 PM Reporting Lab: [address] [address] Performing Lab: [address] [address] TSH 0.67 u[IU]/mL 0.35-5.00 Sep 10, 2023 07:53 AM [facility] PSA Specimen Type: SERUM No comment entered. Ordering Provider: HEIDI KRAMER Report Released Date/Time: Sep 06, 2023 06:54 PM Reporting Lab: [address] [address] Performing Lab: [address] [address] PSA 2.95 ng/mL 0.00-4.00 Sep 10, 2023 07:53 AM [facility] MICROSCOPIC AUTOMATED, URINE Specimen Type: URINE Comment: If Glucose = >500 and Ketones are positive, please alert the Physician. Ordering Provider: HEIDI KRAMER Report Released Date/Time: Sep 06, 2023 06:54 PM Reporting Lab: [address] [address] Performing Lab: [address] [address] UA WBC 0-5 /[HPF] 0-5 UA MUCUS FEW /[LPF] Trace UA RBC 0-2 /[HPF] 0-3 Sep 10, 2023 07:53 AM [facility] URINALYSIS CLEAN CATCH Specimen Type: URINE Comment: If Glucose = >500 and Ketones are positive, please alert the Physician. Ordering Provider: HEIDI KRAMER Report Released Date/Time: Sep 06, 2023 06:54 PM Reporting Lab: [address] [address] Performing Lab: [address] [address] UA COLOR Yellow Yellow UA APPEARANCE Clear Clear UA GLUCOSE NEGATIVE mg/dL Negative UA KETONES TRACE mg/dL Negative UA BLOOD NEGATIVE mg/dL Negative UA PROTEIN 20 mg/dL Negative UA NITRITE NEGATIVE mg/dL Negative UA BILIRUBIN NEGATIVE mg/dL Negative UA SPECIFIC GRAVITY 1.033 H 1.016-1.022 UA pH 6.0 5.0-9.0 UA UROBILINOGEN <2.0 mg/dL <2.0 UA LEUKOCYTE TRACE Negative Social History: Smoking Status (Most current) and Tobacco Use (All prior to encounter date) This section includes the most current, and the historical, smoking and tobacco- related health factors from the [place] facility where the Encounter took place. Current Smoking Status This section includes the most current smoking, or tobacco-related health factor, from the [place] facility where the Encounter took place. Date/Time Current Smoking Status Comment [place] Sep 11, 2022 10:30 AM [facility] Tobacco Use History This section includes a history of the smoking, or tobacco-related health factors, that were collected on or before the date of the Encounter. The data comes from the [place] facility where the Encounter took place. Date/Time Smoking Status/Tobacco Use Comment F acility Sep 11, 2022 10:30 AM VA-TOBACCO QUIT 5 TO < 15 YRS [place] [facility] [place] [facility] Sep 04, 2021 09:00 AM VA-TOBACCO FORMER USER [place] [facility] [place] [facility] Sep 04, 2021 09:00 AM VA-TOBACCO QUIT 5 TO < 15 YRS [place] [facility] [place] [facility] Jul 20, 2020 08:30 AM VA-TOBACCO FORMER USER [place] [facility] [place] [facility] Jul 20, 2020 08:30 AM VA-TOBACCO QUIT 5 TO < 15 YRS [place] [facility] [place] [facility] Dec 05, 2017 11:14 AM QUIT TOBACCO USE > 7 YEARS AGO [facility] Encounter Notes: All associated encounter notes This section contains the clinical notes associated to the Encounter. Date/Time Encounter Note(s) Provider Source Sep 08, 2023 12:56 PM ADMINISTRATIVE NOTE: LOCAL TITLE: ADMINISTRATIVE NOTE STANDARD TITLE: ADMINISTRATIVE NOTE DATE OF NOTE: SEP 08, 2023@12:56 ENTRY DATE: SEP 08, 2023@12:56:06 AUTHOR: TIM CHANEL EXP COSIGNER: URGENCY: STATUS: COMPLETED Reminder call for your upcoming Primary Care Appointment and the need for preparations prior to your upcoming appt. [X] Location in [facility] [X] Fasting labs [ ] Lab work within 30 days [ ] Urine [ ] No Preparation Action taken: [X] Called , left voice message Aug [ ] Called , unable to leave voice mail [ ] Spoke to /adult care manager to remind them of upcoming appt/preparations Upcoming Appointments: 09/19/2023 09:30 CWM/NO/PACT 2 09/29/2023 08:30 NH[facility]/OPTOMETRY/[place] 11/04/2023 08:20 [facility]-NEUROLOGY /es/ TIM CHANEL AMSA Signed: 09/08/2023 12:56 TIM CHANEL [facility]
--- OUTSIDE RECORDS SUMMARY | 2024-06-04 15:26 | XMS_ITS ---
Author Name [facility] [place] Organization [facility] Address [address] [place] [address] Care Team Providers Care Chief Informatics Officer Name Role Phone HEIDI HERRING Primary Care [...] SELF PLUS ONE May 28, [phone] [id number] GAUTAM MARCELO PATIENT [facility]-F EP BCBS PRESCRIPT ION FEP CAREM ARK May 19, 2010 [id number] [phone] GAUTAM MARCELO PATIENT [facility] SCRIPTS TRICA RE DODA May 19, 2022 DODA [id number] GAUTAM MARCELO PATIENT [facility] RX PRESCRIPT ION RX May 19, 2022 THPRX [id number] GAUTAM MARCELO PATIENT [facility] POINT OF SERVICE POS 2021 [id number] [phone] GAUTAM MARCELO PATIENT [facility] 2021 [facility] [id number] [phone] GAUTAM MARCELO PATIENT [facility] PLAN [facility] USP -NILESH DRISCOLL 2021 [facility] [id number] GAUTAM MARCELO PATIENT [facility] Barlow 2021 [facility] [id number] [phone] GAUTAM MARCELO PATIENT Selected Encounter This section includes the information on record at [place] for the Encounter. Date/Time Encounter Type Encounter Description Reason Provider Source Mar 19, 2024 10:30 AM OFFICE O/P EST LOW 20 MIN PRIMARY CARE/MEDICINE ICD-10-CM E78.00 Pure hypercholesterole obi, unspecified LATASHA HERRING Encounter Template Text not used by [place] Assessments - Encounter Diagnoses This section includes the primary and secondary diagnoses documented for the Encounter. Date/Time Primary/Secondary Diagnosis Diagnosis Name Provider Source Mar 19, 2024 11:02 AM PRIMARY Pure hypercholesterolem ia, unspecified HEIDI HERRING [facility] [place] [facility] Mar 19, 2024 11:02 AM SECONDARY Benign prostatic hyperplasia with lower urinary tract symp [facility] [place] [facility] Mar 19, 2024 11:02 AM SECONDARY Encounter for immunization KARINA JEWELL [facility] [place] [facility] Mar 19, 2024 11:02 AM SECONDARY Other obstructive and reflux uropathy [facility] Plan of Treatment: Future Appointments (+ 6 months) and Future Tests (+/- 45 days) The Plan of Treatment section includes future care activities for the patient from all [place] treatmentfacilities. This section includes future appointments and future orders which are active, pending or scheduled. Future Appointments This section includes appointments that were scheduled to occur 6 months from the date of the Encounter, up to a maximum of 20 appointments. The data comes from all [place] treatment facilities. Appointment Date/Time Appointment Type Appointme nt Facility Name Mar 30, 2024 07:00 AM [facility] Sep 14[facility] 2024 09:00 AM [facility] Active, Pending, and Scheduled Orders This section includes a listing of several types of active, pending, and scheduled orders, including clinic medications orders, diagnostic test orders, procedure orders and consult orders; where the start date of the order is 45 days before the date of the Encounter or 45 days after the date of theEncounter. The data comes from all [place] treatment facilities. Test Date/Time Test Type Test Details Facility Name Mar 19, 2024 10:57 AM Consult Order [facility]-NEUROLOGY Cons Manager Shift's Choice [facility] Lab Results: +/- 30 days of the encounter This section includes the Chemistry and Hematology Lab Results on record with [place] for the patient. Radiology Reports and Pathology Reports are provided separately, in subsequent sections. Lab Results This section contains the Chemistry/Hematology Results that were resulted 30 days before or 30 daysafter the date of the Encounter. Date/Time Source Result Type Result - Unit Interpretation Reference Range Comment Mar 16, 2024 07:31 AM [facility] LIVER FUNCTION Specimen Type: SERUM No comment entered. Ordering Provider: HEIDI HERRING Report Released Date/Time: Mar 06, 2024 04:25 PM Reporting Lab: [facility] [address] [facility] [address] Performing Lab: [facility] [address] [facility] [address] PROTEIN,TOTAL 6.7 g/dL 6.0-8.3 ALBUMIN 3.8 g/dL 3.5-5.0 ALKALINE PHOSPHATASE 60 U/L 40-150 AST 20 U/L 5-34 ALT 17 U/L BILIRUBIN, TOTAL 0.5 mg/dL 0.2-1.2 Mar 16, 2024 07:31 AM [facility] LIPID PANEL FASTING Specimen Type: SERUM No comment entered. Ordering Provider: HEIDI HERRING Report Released Date/Time: Mar 06, 2024 04:25 PM Reporting Lab: [facility] [address] [facility] [address] Performing Lab: [address] [address] CHOLESTEROL 218 mg/dL H TRIGLYCERIDE 100 mg/dL 0-150 LDL calculated 134 mg/dL H 0-129 CHOL/HDL 3.4 HDL CHOLESTEROL 64 mg/dL H 40-60 Mar 16, 2024 07:31 AM [facility] BASIC METABOLIC PANEL (fasting) Specimen Type: SERUM No comment entered. Ordering Provider: HEIDI HERRING Report Released Date/Time: Mar 06, 2024 04:25 PM Reporting Lab: [facility] [address] [facility] [address] Performing Lab: [facility] [address] [facility] [address] UREA NITROGEN 10 mg/dL 7-25 GLUCOSE 92 mg/dL 65-100 SODIUM 140 mmol/L 135-145 POTASSIUM 4.5 mmol/L 3.5-5.0 CHLORIDE 106 mmol/L 100-110 CO2 26 meq/L 20-30 CREATININE, Serum 0.88 mg/dL 0.50-1.40 eGFR(CKD-EPI 2020) >90 mL/min >60 Mar 16, 2024 07:31 AM [facility] TSH Specimen Type: SERUM No comment entered. Ordering Provider: HEIDI HERRING Report Released Date/Time: Mar 06, 2024 04:25 PM Reporting Lab: [facility] [address] [facility] [address] Performing Lab: [facility] [address] [facility] [address] TSH 1.99 u[IU]/mL 0.35-5.00 Mar 16, 2024 07:31 AM [facility] PSA Specimen Type: SERUM No comment entered. Ordering Provider: HEIDI HERRING Report Released Date/Time: Mar 06, 2024 04:25 PM Reporting Lab: [facility] [address] [facility] [address] Performing Lab: [facility] [address] PSA 2.21 ng/mL 0.00-4.00 Mar 16, 2024 07:31 AM [facility] CBC AND DIFF (AUTO) Specimen Type: BLOOD No comment entered. Ordering Provider: HEIDI HERRING Report Released Date/Time: Mar 06, 2024 04:25 PM Reporting Lab: [facility] [address] [facility] [address] Performing Lab: [facility] [address] [facility] [address] WBC 5.16 10*3/uL 4.50-11.00 RBC 5.18 10*6/uL 4.23-5.66 HGB 15.1 g/dL 12.8-17 HCT 44.8 39.2-50.4 MCV 86.5 fL 82-99 MCHC 33.7 g/dL 30.8-35.1 PLT 209 10*3/uL 140-360 RDW-CV 12.4 12.0-16.0 MONO, ABS 0.47 10*3/uL 0.30-1.10 MCH 29.2 pg 26.2-32.6 NEUT % 64.1 43.7-75.8 LYMPH % 21.1 14.0-42.3 MONO % 9.1 5.1-13.7 EOS % 4.3 0.4-6.8 BASO % 1.0 0.1-2.0 NEUT, ABS 3.31 10*3/uL 2.20-7.60 LYMPH, ABS 1.09 10*3/uL 1.00-3.20 EOS, ABS 0.22 10*3/uL 0.03-0.44 BASO, ABS 0.05 10*3/uL 0.01-0.13 IMMATURE GRAN % 0.4 0.0-0.7 IMMATURE GRAN, ABS 0.02 10*3/uL 0.00-0.06 NRBC % 0.0 0.0-0.0 NRBC, ABS 0.00 10*3/uL 0.00-0.00 Mar 16, 2024 07:31 AM [facility] MICROSCOPIC AUTOMATED, URINE Specimen Type: URINE Comment: If Glucose = >500 and Ketones are positive, please alert the Physician. Ordering Provider: HEIDI HERRING Report Released Date/Time: Mar 06, 2024 04:25 PM Reporting Lab: [facility] [address] [facility] [address] Performing Lab: [facility] [address] [facility] [address] UA WBC 0-5 /[HPF] 0-5 UA MUCUS FEW /[LPF] Trace UA RBC 0-2 /[HPF] 0-3 UA SQUAMOUS EPITH FEW /[HPF] Mar 16, 2024 07:31 AM [facility] URINALYSIS CLEAN CATCH Specimen Type: URINE Comment: If Glucose = >500 and Ketones are positive, please alert the Physician. Ordering Provider: HEIDI HERRING Report Released Date/Time: Mar 06, 2024 04:25 PM Reporting Lab: [facility] [address] [facility] [address] Performing Lab: [address] [address] UA COLOR Light-Yellow Yellow UA APPEARANCE Clear Clear UA GLUCOSE Normal mg/dL Negative UA KETONES NEGATIVE mg/dL Negative UA BLOOD NEGATIVE mg/dL Negative UA PROTEIN NEGATIVE mg/dL Negative UA NITRITE NEGATIVE mg/dL Negative UA BILIRUBIN NEGATIVE mg/dL Negative UA SPECIFIC GRAVITY 1.015 L 1.016-1.022 UA pH 6.0 5.0-9.0 UA UROBILINOGEN Normal mg/dL <2.0 UA LEUKOCYTE TRACE Negative Vital Signs: All taken on the encounter date This section contains inpatient and outpatient Vital Signs collected on the date of the Encounter. Date/Time Temperature Pulse Blood Pressure Respiratory Rate SP02 Pain Height Weight Body Mass Index Source Mar 19, 2024 10:18 AM 98 72 122/73 16 97 0 68 192.2 29 [facility] Immunizations: All administered on the encounter date This section contains immunizations associated to the Encounter. Immunization Series Date Issued Reaction Comments COVID-19 (MODERNA), MRNA, LN P-S, PF, 50 MCG/0.5 ML (AGES 12+ YEARS) Mar 19, 2024 INFLUENZA, SPLIT VIRUS, TRIVALENT, PF Mar 19 024 Social History: Smoking Status (Most current) and Tobacco Use (All prior to encounter date) This section includes the most current, and the historical, smoking and tobacco- related health factors from the [place] facility where the Encounter took place. Current Smoking Status This section includes the most current smoking, or tobacco-related health factor, from the [place] facility where the Encounter took place. Date/Time Current Smoking Status Comment [place] September 19, 2023 09:30 AM VA-TOBACCO FORMER USER [facility] Tobacco Use History This section includes a history of the smoking, or tobacco-related health factors, that were collected on or before the date of the Encounter. The data comes from the [place] facility where the Encounter took place. Date/Time Smoking Status/Tobacco Use Comment F acility September 19, 2023 09:30 AM VA-TOBACCO QUIT 15 YRS OR MORE [place] [facility] [place] [facility] Sep 11, 2022 10:30 AM VA-TOBACCO FORMER USER [place] [facility] [place] [facility] Sep 11, 2022 10:30 AM VA-TOBACCO QUIT 5 TO < 15 YRS [place] [facility] [place] [facility] Sep 04, 2021 09:00 AM VA-TOBACCO FORMER USER [place] [facility] [place] [facility] Sep 04, 2021 09:00 AM VA-TOBACCO QUIT 5 TO < 15 YRS [place] [facility] [place] [facility] Jul 20, 2020 08:30 AM VA-TOBACCO FORMER USER [place] [facility] [place] [facility] Jul 20, 2020 08:30 AM VA-TOBACCO QUIT 5 TO < 15 YRS [place] [facility] [place] [facility] Dec 05, 2017 11:14 AM QUIT TOBACCO USE > 7 YEARS AGO [place] [facility] [place] [place] [facility] Encounter Notes: All associated encounter notes This section contains the clinical notes associated to the Encounter. Date/Time Encounter Note(s) Provider Source Mar 19, 2024 01:47 PM PREVENTIVE MEDICINE NURSING NOTE: LOCAL TITLE: CLINICAL REMINDERS/NURSING STANDARD TITLE: PREVENTIVE MEDICINE NURSING NOTE DATE OF NOTE: MAR 19, 2024@13:47 ENTRY DATE: MAR 19, 2024@13:48:09 AUTHOR: KARINA JEWELL EXP COSIGNER: URGENCY: STATUS: COMPLETED Influenza Immunization: Influenza, Trivalent, Preservative Free (Fluarix-Syringe) Administered: INFLUENZA, SPLIT VIRUS, TRIVALENT, PF Date Administered: Mar 19, 2024 10:30 Series: Complete Medicine Tech: Public[employer] Lot: [id number] Exp Date: Nov 15, 2024 [facility]: [id number] Admin Route/Site: INTRAMUSCULAR/LEFT DELTOID Dosage: 0.5mL Vaccine Information Statement(s): INFLUENZA(FLU) VACC(INACTIVATED OR RECOMBINANT)VIS Dec 22, 2020 (TURKISH) Order By: Policy Administered By: Karina Jewell The Influenza Vaccine Information Statement (VIS) was reviewed with the patient/caregiver which lists the benefits and risks of the vaccine and the risks of not receiving the Influenza vaccine. The patient/caregiver denied any prior severe reaction to this vaccine or its components or a severe allergic reaction, such as anaphylaxis, to any vaccine or any injectable therapy. The patient/caregiver gave verbal consent to receive the vaccine. COVID-19 Immunization: Moderna Monovalent (Spikevax) Administered: COVID-19 (MODERNA), MRNA, LNP-S, PF, 50 MCG/0.5 ML (AGES 12+ YEARS) Date Administered: Mar 19, 2024 10:30 Series: Booster Medicine Tech: [employer]. Lot: [id number] Exp Date: Oct 23, 2024 [facility]: [id number] Admin Route/Site: INTRAMUSCULAR/RIGHT DELTOID Dosage: 0.5mL Vaccine Information Statement(s): COVID-19 MRNA VACCINE (12+ YRS) VACCINE VIS Mar 04, 2024 (TURKISH) Order By: Policy Administered By: Karina Jewell Vaccine administered without complications. /[place]/ Karina Jewell RN, BSN Primary Care Signed: 03/19/2024 13:58 KARINA JEWELL [place] [facility] [place] [facility] Mar 19, 2024 10:58 AM PHYSICIAN NOTE: LOCAL TITLE: NOTE STANDARD TITLE: PHYSICIAN NOTE DATE OF NOTE: MAR 19, 2024@10:58 ENTRY DATE: MAR 19, 2024@10:58:03 AUTHOR: HEIDI HERRING EXP COSIGNER: URGENCY: STATUS: COMPLETED Patient Name: MIREYA MARCELO VITALS: Patient temperature: 98 F [36.7 C] (03/19/2024 10:18) Blood pressure: 122/73 (03/19/2024 10:18) Patient height: 68 in [172.7 cm] (03/19/2024 10:18) Patient weight: 192.2 lb [87.18 kg] (03/19/2024 10:18) Patient BMI: BMI: 29.3 Patient pulse: 72 (03/19/2024 10:18) Patient respiration: 16 (03/19/2024 10:18) Patient Pulse Oximetry: 97% (03/19/2024 10:18) Pain Ratin (03/19/2024 10:18) Active [facility] Medications: Active Outpatient Medications (including Supplies): Active Outpatient Medications Status 1) ALBUTEROL 90MCG (CFC-F) 200D ORAL INHL INHALE 2 PUFFS ACTIVE BY MOUTH FOUR TIMES DAILY NEEDED FOR ASTHMA ATTACK 2) BUPROPION HCL 300MG 24HR SA TAB TAKE ONE TABLET BY ACTIVE MOUTH ONCE DAILY 3) IBUPROFEN 600MG TAB TAKE ONE TABLET BY MOUTH FOUR ACTIVE TIMES DAILY NEEDED TAKE WITH FOOD; FOR PAIN/INFLAMMATION/SWELLING 4) MONTELUKAST NA 10MG TAB TAKE ONE TABLET BY MOUTH AT ACTIVE BEDTIME FOR ASTHMA 5) PRAVASTATIN NA 40MG TAB TAKE ONE TABLET BY MOUTH AT ACTIVE BEDTIME FOR CHOLESTEROL 6) SERTRALINE HCL 100MG TAB TAKE ONE TABLET BY MOUTH ACTIVE ONCE DAILY 7) TAMSULOSIN HCL 0.4MG CAP TAKE ONE CAPSULE BY MOUTH AT ACTIVE BEDTIME FOR ENLARGED PROSTATE 8) TRIAMCINOLONE ACETONIDE 0.1% CREAM APPLY A MODERATE ACTIVE AMOUNT TOPICALLY TWICE DAILY Active Non-VA Medications Status 1) Non-VA NATALIZUMAB 20MG/ML SOLN INJ 15ML 300MG ACTIVE INTRAVENOUSLY EVERY MONTH 9 Total Medications Remote Medications: No Active 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 He feels well today with no complaints. he stays active with activities.. He takes all medication regularly. Review of systems No chest pain or dyspnea No abdominal pain No trouble urinating No fever or chills No cough Physical examination: Well developed well nourished in no apparent distress Vitals as above Heart: rrr, no m/r/g Lungs: clear to ausculatation Abdomen: soft, +bs, nontender, nondistended, no masses or guarding Extremities: no edema, no cyanosis or clubbing Neurologic: alert, normal gait, normal senory and motor, EOMI, PERRLA, conjunctiva and sclera normal Psychiatric: answers questions appropriately, normal/coherent speech HEENT: mucious membranes moist Ears and pharynx: no erythema, tympanic membranes normal Neck: supple Urogenital: normal external male, no masses Skin: warm, dry, no lesions WBC/HPF: 0-5 RBC/HPF: 0-2 MUCUS: FEW SQUAMOUS EPITHELIAL: FEW Color, Urine (AX 4280): Light-Yellow Appearance, Urine (AX 4280): Clear Glucose, Urine (AX 4280): Normal Ketones, Urine (AX 4280): NEGATIVE Blood, Urine (AX 4280): NEGATIVE Protein, Urine (AX 4280): NEGATIVE Nitrite, Urine (AX 4280): NEGATIVE Bilirubin, Urine (AX 4280): NEGATIVE Specific [place], (AX 4280): 1.015 L pH, Urine (SI2710): 6.0 Urobilinogen, Urine (AX 4280): Normal Leukocyte Esterase, (AX 4280): TRACE PROSTATIC SP ANTIGEN: 2.21 TSH (Access): 1.99 GLUCOSE: 92 UREA NITROGEN: 10 SODIUM: 140 POTASSIUM: 4.5 CHLORIDE: 106 CO2: 26 CHOLESTEROL: 218 H PROTEIN,TOTAL: 6.7 ALBUMIN: 3.8 ALKALINE PHOSPHATASE: 60 SGOT: 20 SGPT: 17 TRIGLYCERIDE: 100 LDL CHOL: 134 H CHOL/HDL RATIO: 3.4 HDL: 64 H BILIRUBIN,TOT.: 0.5 CREATININE-EGFR: 0.88 eGFR CKD-EPI 2020: >90 WBC: 5.16 RBC: 5.18 HGB: 15.1 HCT: 44.8 MCV: 86.5 MCHC: 33.7 RDW: 12.4 PLT: 209 MCH: 29.2 Neut %: 64.1 Lymph %: 21.1 [place] %: 9.1 Eos %: 4.3 Baso %: 1.0 Neut, Abs: 3.31 Lymph, Abs: 1.09 [place], Abs: 0.47 Eos, Abs: 0.22 Baso, Abs: 0.05 Immature Granulocytes %: 0.4 Immature Granulocytes, Abs: 0.02 NRBC%: 0.0 NRBC#: 0.00 Discussed above test results with patient assessment and plan: 1. Hypercholesterolemia: Total cholesterol and LDL remain borderline elevated. This does not require medication adjustment. Provided education about exercise and choice of foods. Plan continue pravastatin 2. BPH: Patient is urinating better with tamsulosin Plan continue above Follow-up 6 months clinic visit and lab Medication Reconciliation: Outpatient: Has the patient been taking medications as documented in the EMLR? YES: The patient has been taking medications as documented in the EMLR. Essential Medication List for Review used to complete this medication reconciliation. INCLUDED IN THIS LIST: Alphabetical list of active outpatient prescriptions dispensed from this [place] (local) and dispensed from another [place] or [facility] facility (remote) as well as inpatient orders [...] whether with a VA or non-VA provider. /[place]/ Heidi Herring MD Staff Physician Signed: 03/19/2024 11:01 HEIDI HERRING [place] [facility] [facility] Mar 19, 2024 10:22 AM PREVENTIVE MEDICINE NURSING NOTE: LOCAL TITLE: CLINICAL REMINDERS/NURSING STANDARD TITLE: PREVENTIVE MEDICINE NURSING NOTE DATE OF NOTE: MAR 19, 2024@10:22 ENTRY DATE: MAR 19, 2024@10:22:55 AUTHOR: VILLA KEARNEY COSIGNER: URGENCY: STATUS: COMPLETED CLINICAL REMINDERS/NURSING Has ADDENDA (Optional) Whole Health Documentation: What matters the most to you? What motivates you to be healthy? (MAP) Response: I have MS, that is my motivation Suicide Screen: C-SSRS Screening [place] Suicide Severity Rating Scale (C-SSRS) screener 1. Over the past month, have you wished you were or wished you could go to sleep and not wake up? No 2. Over the past month, have you had any actual thoughts of killing yourself? No 3. Over the past month, have you been thinking about how you might do this? Response not required due to responses to other questions. 4. Over the past month, have you had these thoughts and had some intention of acting on them? Response not required due to responses to other questions. 5. Over the past month, have you started to work out or worked out the details of how to kill yourself? Response not required due to responses to other questions. 6. If yes, at any time in the past month did you intend to carry out this plan? Response not required due to responses to other questions. 7. In your lifetime, have you ever done anything, started to do anything, or prepared to do anything to end your life (for example, collected pills, obtained a gun, gave away valuables, went to the roof but didn't jump)? No 8. If YES, was this within the past 3 months? Response not required due to responses to other questions. Sexual Orientation: The patient thinks of their sexual orientation as: Straight or Heterosexual Advance Directive Screen MH AD: Patient has an up-to-date Advance Directive at an outside, non-va facility and was asked to forward a copy to his/her clinician. Comment: will get a copy to this [place] /[place]/ VILLA KEARNEY LPN LPN Signed: 03/19/2024 10:27 03/19/2024 ADDENDUM STATUS: COMPLETED Td / Tdap Immunization: Prior Td vaccination The patient has previously received the Tetanus, Diphtheria, Pertussis vaccine (Tdap). Documented: TDAP Historical Date Administered: Nov 26, 2023 Series: Complete Outside Location: Outside Healthcare Provider Information Source: FROM OTHER REGISTRY Comment: [facility] in [place] /[place]/ VILLA KEARNEY LPN LPN Signed: 03/19/2024 10:45 VILLA KEARNEY [place] [facility]
--- OUTSIDE RECORDS SUMMARY | 2024-06-04 15:26 | XMS_ITS | Encounter Summary ---
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 Name Role Phone HEIDI KRAMER Primary Care [...] SELF PLUS ONE May 28, [phone] [id number] GAUTAM MARCELO PATIENT CAREMARK-F EP BCBS PRESCRIPT ION FEP CAREM ARK May 19, 2010 [id number] [phone] [id number] 59 GAUTAM MARCELO PATIENT EXPRESS SCRIPTS TRICA RE DODA May 19, 2022 DODA [id number] GAUTAM MARCELO PATIENT OPTUM RX PRESCRIPT ION RX May 19, 2022 THPRX [id number] [phone] GAUTAM MARCELO PATIENT [facility] POINT OF SERVICE POS 2021 [id number] GAUTAM MARCELO PATIENT [facility] MAR 2021 [id number] GAUTAM MARCELO PATIENT [facility] DRIS[facility]LL 2021 [facility] EMERGENC[facility] DEPART[facility] [id number] [phone] GAUTAM MARCELO PATIENT [facility] Barlow 2021 [facility] EMERG[facility] DEPARTMENT [id number] 91 GAUTAM MARCLEO PATIENT Selected Encounter This section includes the information on record at [place] for the Encounter. Date/Time Encounter Type Encounter Description Reason Provider Source September 29, 2023 08:30 AM FIT SPECTACLES MULTIFOCAL OPTOMETRY ICD-10-CM Z46.0 Encounter for fit/adjst of spectacles and contact lenses DIEGO ROSSI Encounter Template Text not used by [place] Assessments - Encounter Diagnoses This section includes the primary and secondary diagnoses documented for the Encounter. Date/Time Primary/Secondary Diagnosis Diagnosis Name Provider Source September 29, 2023 08:30 AM PRIMARY Encounter for fit/adjst of spectacles and contact lenses EMIL ALICEA [facility] Plan of Treatment: Future Appointments (+ 6 months) and Future Tests (+/- 45 days) The Plan of Treatment section includes future care activities for the patient from all ID treatmentwaldo hospitalities. This section includes future appointments and future orders which are active, pending or scheduled. Future Appointments This section includes appointments that were scheduled to occur 6 months from the date of the Encounter, up to a maximum of 20 appointments. The data comes from all ID treatment facilities. Appointment Date/Time Appointment Type Appointme nt Facility Name Nov 04, 2023 08:20 AM AMBULATORY - [facility] Mar 19, 2024 10:30 AM AMBULATORY MEDICINE [facility] Mar 30, 2024 07:00 AM AMBULATORY MEDICINE [facility] Lab Results: +/- 30 days of the encounter This section includes the Chemistry and Hematology Lab Results on record with ID for the patient. Radiology Reports and Pathology Reports are provided separately, in subsequent sections. Lab Results This section contains the Chemistry/Hematology Results that were resulted 30 days before or 30 daysafter the date of the Encounter. Date/Time Source Result Type Result - Unit Interpretation Reference Range Comment Sep 10, 2023 07:53 AM [facility] LIVER FUNCTION Specimen Type: SERUM No comment entered. Ordering Provider: HEIDI KRAMER Report Released Date/Time: Sep 06, 2023 06:54 PM Reporting Lab: [facility] [address] [facility] [facility] [address] Performing Lab: [address] [address] PROTEIN,TOTAL 6.5 g/dL 6.0-8.3 ALBUMIN 4.0 g/dL 3.5-5.0 ALKALINE PHOSPHATASE 55 U/L 40-150 AST 25 U/L 5-34 ALT 20 U/L BILIRUBIN, TOTAL 0.6 mg/dL 0.2-1.2 Sep 10, 2023 07:53 AM [facility] LIPID PANEL FASTING Specimen Type: SERUM No comment entered. Ordering Provider: HEIDI KRAMER Report Released Date/Time: Sep 06, 2023 06:54 PM Reporting Lab: [address] [address] Performing Lab: [address] [address] CHOLESTEROL 219 mg/dL H TRIGLYCERIDE 66 mg/dL 0-150 LDL calculated 141 mg/dL H 0-129 CHOL/HDL 3.4 HDL CHOLESTEROL 65 mg/dL H 40-60 Sep 10, 2023 07:53 AM [facility] BASIC METABOLIC PANEL (fasting) Specimen Type: SERUM No comment entered. Ordering Provider: HEIDI KRAMER Report Released Date/Time: Sep 06, 2023 06:54 PM Reporting Lab: [address] [address] Performing Lab: [address] [address] UREA NITROGEN 15 mg/dL 7-25 GLUCOSE 96 mg/dL 65-100 SODIUM 141 mmol/L 135-145 POTASSIUM 4.8 mmol/L 3.5-5.0 CHLORIDE 107 mmol/L 100-110 CO2 26 meq/L 20-30 CREATININE, Serum 0.93 mg/dL 0.50-1.40 eGFR(CKD-EPI 2020) >90 mL/min >60 Sep 10, 2023 07:53 AM [facility] CBC AND DIFF (AUTO) Specimen Type: BLOOD No comment entered. Ordering Provider: HEIDI KRAMER Report Released Date/Time: Sep 06, 2023 06:54 PM Reporting Lab: [facility] [address] [facility] [address] Performing Lab: [facility] [address] [address] WBC 4.31 10*3/uL L 4.50-11.00 RBC 5.14 10*6/uL 4.23-5.66 HGB 14.8 g/dL 12.8-17 HCT 44.2 39.2-50.4 MCV 86.0 fL 82-99 MCHC 33.5 g/dL 30.8-35.1 PLT 208 10*3/uL 140-360 RDW-CV 12.8 12.0-16.0 Adams, Abs 0.41 10*3/uL 0.30-1.10 MCH 28.8 pg 26.2-32.6 Neut % 62.6 43.7-75.8 Lymph % 23.0 14.0-42.3 Adams % 9.5 5.1-13.7 Eos % 3.5 0.4-6.8 Baso % 0.9 0.1-2.0 Neut, Abs 2.70 10*3/uL 2.20-7.60 Lymph, Abs 0.99 10*3/uL L 1.00-3.20 Eos, Abs 0.15 10*3/uL 0.03-0.44 Baso, Abs 0.04 10*3/uL 0.01-0.13 Immature Gran % 0.5 0.0-0.7 Immature Gran, Abs 0.02 10*3/uL 0.00-0.06 Sep 10, 2023 07:53 AM [facility] TSH Specimen Type: SERUM No comment entered. Ordering Provider: HEIDI KRAMER Report Released Date/Time: Sep 06, 2023 06:54 PM Reporting Lab: [facility] [address] [facility] [address] Performing Lab: [facility] [address] [facility] [address] TSH 0.67 u[IU]/mL 0.35-5.00 Sep 10, 2023 07:53 AM [facility] PSA Specimen Type: SERUM No comment entered. Ordering Provider: HEIDI KRAMER Report Released Date/Time: Sep 06, 2023 06:54 PM Reporting Lab: [facility] [address] [facility] [address] Performing Lab: [address] [address] PSA 2.95 ng/mL 0.00-4.00 Sep 10, 2023 07:53 AM [facility] MICROSCOPIC AUTOMATED, URINE Specimen Type: URINE Comment: If Glucose = >500 and Ketones are positive, please alert the Physician. Ordering Provider: HEIDI KRAMER Report Released Date/Time: Sep 06, 2023 06:54 PM Reporting Lab: [address] [address] Performing Lab: [address] [address] UA WBC 0-5 /[HPF] 0-5 UA MUCUS FEW /[LPF] Trace UA RBC 0-2 /[HPF] 0-3 Sep 10, 2023 07:53 AM [facility] URINALYSIS CLEAN CATCH Specimen Type: URINE Comment: If Glucose = >500 and Ketones are positive, please alert the Physician. Ordering Provider: HEIDI KRAMER Report Released Date/Time: Sep 06, 2023 06:54 PM Reporting Lab: [address] [address] Performing Lab: [address] [address] UA COLOR Yellow Yellow UA APPEARANCE Clear [...] and tobacco- related health factors from the ID facility where the Encounter took place. Current Smoking Status This section includes the most current smoking, or tobacco-related health factor, from the ID facility where the Encounter took place. Date/Time Current Smoking Status Comment Facil ity September 19, 2023 09:30 AM VA-TOBACCO FOR[facility] USER [facility] Tobacco Use History This section includes a history of the smoking, or tobacco-related health factors, that were collected on or before the date of the Encounter. The data comes from the ID facility where the Encounter took place. Date/Time Smoking Status/Tobacco Use Comment F acility September 19, 2023 09:30 AM VA-TOBACCO QUIT 15 YRS OR MORE ID [facility] [place] [facility] Sep 11, 2022 10:30 AM VA-TOBACCO FORMER USER ID [facility] [place] [facility] Sep 11, 2022 10:30 AM VA-TOBACCO QUIT 5 TO < 15 YRS ID [facility] [place] [facility] Sep 04, 2021 09:00 AM VA-TOBACCO FORMER USER ID [facility] [place] [facility] Sep 04, 2021 09:00 AM VA-TOBACCO QUIT 5 TO < 15 YRS ID [facility] [place] [facility] Jul 20, 2020 08:30 AM VA-TOBACCO FORMER USER ID [facility] [place] [facility] Jul 20, 2020 08:30 AM VA-TOBACCO QUIT 5 TO < 15 YRS ID [facility] [place] [facility] Dec 05, 2017 11:14 AM QUIT TOBACCO USE > 7 YEARS AGO ID [facility] [place] [facility] Encounter Notes: All associated encounter notes This section contains the clinical notes associated to the Encounter. Date/Time Encounter Note(s) Provider Source September 29, 2023 09:15 AM OPTOMETRY NOTE: LOCAL TITLE: OPTOMETRY NOTE STANDARD TITLE: OPTOMETRY NOTE DATE OF NOTE: SEPTEMBER 29, 2023@09:15 ENTRY DATE: SEPTEMBER 29, 2023@09:15:31 AUTHOR: JONO SAAB EXP COSIGNER: URGENCY: STATUS: COMPLETED OPTOMETRY NOTE Has ADDENDA The quote provided below is for informational purposes only. Please verify prior to the creation of a purchase order. MIREYA MARCELO [id number] RX INFORMATION OD +2.00 0.00 X Add:+2.50 Pzm:0.00 Dir: Prz2:0.00 Dir2: OS +3.25 -0.50 X75 Add:+2.50 Pzm:0.00 Dir: Prz2:0.00 Dir2: FITTING INFORMATION FPD: NPD: Adams:R:32 L:30 SEG HT:R:19 L:19 Tint:None Shade:None VA Billable Items FRAME: FX3 GUNMETAL 5020-160 Right Lens: PLASTIC VA PROGRESSIVE PHOTOCHROMIC MIRZA 1.498 PLASTIC CR39 Left Lens: PLASTIC VA PROGRESSIVE PHOTOCHROMIC MIRZA 1.498 PLASTIC CR39 KLEAR ANTI-REFLECTIVE COATING /[place]/ JONO SAAB [facility]ED PRACTICE PSYCHIATRIC NURSE Signed: 09/29/2023 09:15 Receipt Acknowledged By: 09/29/2023 15:35 /[place]/ [facility] 09/29/2023 ADDENDUM STATUS: COMPLETED PDS fine hairer fit 1 PAL eyeglasses on 09/29/2023. OPT HT entered consult(s) as requested for provider signature. /[place]/ EMIL [facility] Signed: 09/29/2023 15:36 JONO SAAB [facility]
--- OUTSIDE RECORDS SUMMARY | 2024-06-04 15:26 | XMS_ITS ---
Author Name [facility] [place] Organization [facility] Address [address] [place] [id number] Care Team Providers Care Chuck Tender Name Role Phone HEIDI KRAMER Primary Care [...] SELF PLUS ONE May 28, [phone] [id number] GAUTAM MARCELO PATIENT CAREMARK-F EP BCBS PRESCRIPT ION FEP CAREM ARK May 19, 2010 [id number] GAUTAM MARCELO PATIENT [employer] SCRIP[employer] TRICA RE DODA May 19, 2022 DODA [id number] 3601 GAUTAM MARCELO PATIENT OPTUM RX PRESCRIPT ION RX May 19, 2022 THPRX [id number] 3601 GAUTAM MARCELO PATIENT [facility] POINT OF SERVICE POS 2021 [id number] GAUTAM MARCELO [facility] 2021 [facility] [id number] 3601 GAUTAM MARCELO PATIENT [facility] DRISCOLL 2021 [facility] [id number] 3601 GAUTAM MARCELO PATIENT [facility] Barlow 2021 [facility] [id number] [phone] GAUTAM MARCELO PATIENT Selected Encounter This section includes the information on record at [place] for the Encounter. Date/Time Encounter Type Encounter Description Reason Provider Source September 29, 2023 08:30 AM COMPRE OPH EXAM EST PT 1/> OPTOMETRY ICD-10-CM H25.813 Combined forms of age-related cataract, bilateral DIEGO ROSSI Cain Encounter Template Text not used by [place] Assessments - Encounter Diagnoses This section includes the primary and secondary diagnoses documented for the Encounter. Date/Time Primary/Secondary Diagnosis Diagnosis Name Provider Source September 29, 2023 09:03 AM PRIMARY Combined forms of age-related cataract, bilateral DIEGO ROSSI [place] [facility] [place] [facility] September 29, 2023 09:03 AM SECONDARY Benign neoplasm of left choroid DIEGO ROSSI [place] [facility] [place] [facility] September 29, 2023 09:03 AM SECONDARY Dry eye syndrome of bilateral lacrimal glands DIEGO ROSSI [place] [facility] [place] [facility] September 29, 2023 09:03 AM SECONDARY Glare sensitivity [facility] Plan of Treatment: Future Appointments (+ 6 months) and Future Tests (+/- 45 days) The Plan of Treatment section includes future care activities for the patient from all [place] treatmentfacilities. This section includes future appointments and future orders which are active, pending or scheduled. Future Appointments This section includes appointments that were scheduled to occur 6 months from the date of the Encounter, up to a maximum of 20 appointments. The data comes from all [place] treatment facilities. Appointment Date/Time Appointment Type Appointme nt Facility Name Nov 04, 2023 08:20 AM AMBULATORY - MEDICINE [facility] Mar 19, 2024 10:30 AM [facility] Mar 30, 2024 07:00 AM AMBULATORY - MEDICINE [facility] Lab Results: +/- 30 days of the encounter This section includes the Chemistry and Hematology Lab Results on record with [place] for the patient. Radiology Reports and Pathology Reports are provided separately, in subsequent sections. Lab Results This section contains the Chemistry/Hematology Results that were resulted 30 days before or 30 daysafter the date of the Encounter. Date/Time Source Result Type Result - Unit Interpretation Reference Range Comment Sep 10, 2023 07:53 AM [facility] LIVER FUNCTION Specimen Type: SERUM No comment entered. Ordering Provider: HEIDI KRAMER Report Released Date/Time: Sep 06, 2023 06:54 PM Reporting Lab: [address] [address] Performing Lab: [address] [address] PROTEIN,TOTAL 6.5 g/dL 6.0-8.3 ALBUMIN 4.0 g/dL 3.5-5.0 ALKALINE PHOSPHATASE 55 U/L 40-150 AST 25 U/L 5-34 ALT 20 U/L BILIRUBIN, TOTAL 0.6 mg/dL 0.2-1.2 Sep 10, 2023 07:53 AM [facility] BASIC METABOLIC PANEL (fasting) Specimen Type: SERUM No comment entered. Ordering Provider: HEIDI KRAMER Report Released Date/Time: Sep 06, 2023 06:54 PM Reporting Lab: [address] [address] Performing Lab: [address] [address] UREA NITROGEN 15 mg/dL 7-25 GLUCOSE 96 mg/dL 65-100 SODIUM 141 mmol/L 135-145 POTASSIUM 4.8 mmol/L 3.5-5.0 CHLORIDE 107 mmol/L 100-110 CO2 26 meq/L 20-30 CREATININE, Serum 0.93 mg/dL 0.50-1.40 eGFR(CKD-EPI 2020) >90 mL/min >60 Sep 10, 2023 07:53 AM [facility] CBC AND DIFF (AUTO) Specimen Type: BLOOD No comment entered. Ordering Provider: HEIDI KRAMER Report Released Date/Time: Sep 06, 2023 06:54 PM Reporting Lab: [facility] [address] [facility] [address] Performing Lab: [address] [address] WBC 4.31 10*3/uL L 4.50-11.00 RBC 5.14 10*6/uL 4.23-5.66 HGB 14.8 g/dL 12.8-17 HCT 44.2 39.2-50.4 MCV 86.0 fL 82-99 MCHC 33.5 g/dL 30.8-35.1 PLT 208 10*3/uL 140-360 RDW-CV 12.8 12.0-16.0 Logan, Abs 0.41 10*3/uL 0.30-1.10 MCH 28.8 pg 26.2-32.6 Neut % 62.6 43.7-75.8 Lymph % 23.0 14.0-42.3 Logan % 9.5 5.1-13.7 Eos % 3.5 0.4-6.8 Baso % 0.9 0.1-2.0 Neut, Abs 2.70 10*3/uL 2.20-7.60 Lymph, Abs 0.99 10*3/uL L 1.00-3.20 Eos, Abs 0.15 10*3/uL 0.03-0.44 Baso, Abs 0.04 10*3/uL 0.01-0.13 Immature Gran % 0.5 0.0-0.7 Immature Gran, Abs 0.02 10*3/uL 0.00-0.06 Sep 10, 2023 07:53 AM [facility] LIPID PANEL FASTING Specimen Type: SERUM No comment entered. Ordering Provider: HEIDI KRAMER Report Released Date/Time: Sep 06, 2023 06:54 PM Reporting Lab: [address] [address] Performing Lab: [address] [address] CHOLESTEROL 219 mg/dL H TRIGLYCERIDE 66 mg/dL 0-150 LDL calculated 141 mg/dL H 0-129 CHOL/HDL 3.4 HDL CHOLESTEROL 65 mg/dL H 40-60 Sep 10, 2023 07:53 AM [facility] TSH Specimen Type: SERUM No comment entered. Ordering Provider: HEIDI KRAMER Report Released Date/Time: Sep 06, 2023 06:54 PM Reporting Lab: [facility] [address] [facility] [address] Performing Lab: [facility] [address] [facility] [facility] [address] TSH 0.67 u[IU]/mL 0.35-5.00 Sep 10, 2023 07:53 AM [facility] PSA Specimen Type: SERUM No comment entered. Ordering Provider: HEIDI KRAMER Report Released Date/Time: Sep 06, 2023 06:54 PM Reporting Lab: [facility] [address] [facility] [address] Performing Lab: [address] [address] PSA 2.95 ng/mL 0.00-4.00 Sep 10, 2023 07:53 AM [facility] MICROSCOPIC AUTOMATED, URINE Specimen Type: URINE Comment: If Glucose = >500 and Ketones are positive, please alert the Physician. Ordering Provider: HEIDI KRAMER Report Released Date/Time: Sep 06, 2023 06:54 PM Reporting Lab: [address] [address] Performing Lab: [address] [address] UA WBC 0-5 /[HPF] 0-5 UA MUCUS FEW /[LPF] Trace UA RBC 0-2 /[HPF] 0-3 Sep 10, 2023 07:53 AM [facility] URINALYSIS CLEAN CATCH Specimen Type: URINE Comment: If Glucose = >500 and Ketones are positive, please alert the Physician. Ordering Provider: HEIDI KRAMER Report Released Date/Time: Sep 06, 2023 06:54 PM Reporting Lab: [facility] [place] [facility] [address] [facility] [address] Performing Lab: [place] [facility] [place] [facility] [address] [facility] [facility] [address] UA COLOR Yellow Yellow UA APPEARANCE Clear [...] and tobacco- related health factors from the [place] facility where the Encounter took place. Current Smoking Status This section includes the most current smoking, or tobacco-related health factor, from the [place] facility where the Encounter took place. Date/Time Current Smoking Status Comment Facil ity September 19, 2023 09:30 AM VA-TOBACCO FOR[facility]ER [facility] Tobacco Use History This section includes a history of the smoking, or tobacco-related health factors, that were collected on or before the date of the Encounter. The data comes from the [place] facility where the Encounter took place. Date/Time Smoking Status/Tobacco Use Comment F acannelise September 19, 2023 09:30 AM VA-TOBACCO QUIT 15 YRS OR MORE [place] [facility] [place] [facility] Sep 11, 2022 10:30 AM VA-TOBACCO FORMER USER [place] [facility] [place] [facility] Sep 11, 2022 10:30 AM VA-TOBACCO QUIT 5 TO < 15 YRS [place] [facility] [place] [facility] Sep 04, 2021 09:00 AM VA-TOBACCO FORMER USER [place] [facility] [place] [facility] Sep 04, 2021 09:00 AM VA-TOBACCO QUIT 5 TO < 15 YRS [place] [facility] [place] [facility] Jul 20, 2020 08:30 AM VA-TOBACCO FORMER USER [place] [facility] [place] [facility] Jul 20, 2020 08:30 AM VA-TOBACCO QUIT 5 TO < 15 YRS [facility] Dec 05, 2017 11:14 AM QUIT TOBACCO USE > 7 YEARS AGO [facility] Encounter Notes: All associated encounter notes This section contains the clinical notes associated to the Encounter. Date/Time Encounter Note(s) Provider Source September 29, 2023 07:54 AM OPTOMETRY NOTE: LOCAL TITLE: OPTOMETRY NOTE(T) STANDARD TITLE: OPTOMETRY NOTE DATE OF NOTE: SEPTEMBER 29, 2023@07:54 ENTRY DATE: SEPTEMBER 29, 2023@07:54:47 AUTHOR: DIEGO ROSSI COSIGNER: URGENCY: STATUS: COMPLETED Active Problems: Active Problem Benign Prostatic Hypertrophy with O 03/21/2023 HEIDI KRAMER Achilles tendonitis M76.60, Onset 0 05/10/2022 HEIDI KRAMER Hearing Loss ([facility] [place] [id number]) H91.90, 09/04/2021 HEIDI KRAMER Epicondylitis R69., Onset 09/04/2021 HEIDI KRAMER Hypercholesterolemia ([facility] [place] [id number]) 04/16/2019 HEIDI KRAMER Multiple sclerosis G35., Onset 0012/17/2017 HEIDI KRAMER Asthma J45.998, Onset 12/17/2017 HEIDI KRAMER Closed fracture of left clavicle S4 12/17/2017 HEIDI KRAMER Chronic dermatitis R69., Onset 000 12/17/2017 HEIDI KRAMER Medications ([place]): Active Outpatient Medications (including Supplies): Active Outpatient Medications Status 1) ALBUTEROL 90MCG (CFC-F) 200D ORAL INHL INHALE 2 PUFFS ACTIVE BY MOUTH FOUR TIMES DAILY NEEDED FOR ASTHMA ATTACK 2) BUPROPION HCL 300MG 24HR SA TAB TAKE ONE TABLET BY ACTIVE MOUTH ONCE DAILY 3) GABAPENTIN 300MG CAP TAKE TWO CAPSULES BY MOUTH TWICE ACTIVE DAILY FOR PAIN, ANXIETY, POOR SLEEP, AND HEADACHES 4) MONTELUKAST NA 10MG TAB TAKE ONE [...] ACTIVE INTRAVENOUSLY EVERY MONTH 9 Total Medications Allergies: Patient has answered NKA S: 63-year-old male with a history of not visually significant mixed cataracts, MS, mild dry eyes and choroidal nevus OS. 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 He denies any eye injury or disease since his last exam. ESSENCE: 11/24/2020 (-) Pain: (-) ALCOCER: (-) Diplopia: (-) Flashes: (-) Floaters: (-) Amaurosis Fugax/Tia's: (-) Eye Injury: (-) Eye Surgery: (-) TBI O: Visual acuity with current correction was 20/20 both eyes being weaker OS. Pupils were equal and round and reactive to light with no afferent defect. Extraocular muscles were intact and facial confrontation hardy were full. Lids and lashes were clear both eyes. Corneas and conjunctiva were clear both eyes. Anterior chambers were deep clear and quiet with open angles. Iris was flat both eyes. Trace nuclear sclerotic and cortical cataracts OU. Subjective Refraction: OD:+2.00 sphere 20/20 OS:+3.25-0.77k294 20/20 Add:+2.25 20/20 Intraocular pressures at 8:40 AM were 14 mmHg OU. Dilating Drops: 1GTT 1 % Tropicamide OU & 1GTT 2.5% Phenylephrine OU (Pt. ed. on side effects, dilation warning given and verbal consent obtained) Patient advised not to drive if they feel they have any symptoms which could affect their ability to drive safely. Patient advised not to engage in any activities which could put themselves or others at risk if they feel they have any symptoms which could affect their ability to perform those activities safely. Vitreous was clear OU. Approximately 10 to 15% horizontal and vertical cupping was seen OU with healthy rims and margins. Normal pigmentary architecture of the macula was seen with a two third artery to vein ratio. Retinal peripheries were intact in all quadrants with small choroidal nevus superior temporal OS remaining stable from prior notes. A: Combined cataracts not visually significant. Choroidal nevus stable OS. Mild dry eye history. Refraction disorder P: Ordered new PAL with photo vance lenses for glare sensitivity. The patient will return in 12 months or sooner if any problems arise. [place] Education: After discussion and answering all 's questions, [place] demonstrated and verbalized understanding of diagnosis and treatment. Yes [x] No [ ] Medication Reconciliation: Outpatient: Has the patient been taking medications as documented in the EMLR? YES: The patient has been taking medications as documented in the EMLR. Essential Medication List for Review used to complete this medication reconciliation. INCLUDED IN THIS LIST: Alphabetical list of active outpatient prescriptions dispensed from this VA (local) and dispensed from another VA or DoD facility (remote) as well as [...] with a VA or non-VA provider. /[place]/ DIEGO ROSSI OD STAFF MANAGER MAINTENANCE Signed: 09/29/2023 09:03 DIEGO ROSSI [place] [facility]
--- OUTSIDE RECORDS SUMMARY | 2024-06-04 15:26 | XMS_ITS ---
Author Name Department of [place] Organization [place] Address [address] [place] [address] Care Team Providers Care Manager Field Service Name Role Phone HEIDI KRAMER Primary Care [...] SELF PLUS ONE May 28, 2015 113 [id number] 59 GAUTAM MARCELO PATIENT CAREMARK-F EP BCBS PRESCRIPT ION FEP CAREM ARK May 19, 2010 [id number] [phone] 1 GAUTAM MARCELO PATIENT EXPRESS SCRIPTS TRICA RE DODA May 19, 2022 DODA [id number] 3601 GAUTAM MARCELO PATIENT OPTUM RX PRESCRIPT ION RX May 19, 2022 THPRX [id number] 3601 GAUTAM MARCELO PATIENT [facility] POINT OF SERVICE POS 2021 [id number] GAUTAM MARCELO PATIENT [facility] TON MAR 2021 [id number] 3601 GAUTAM MARCELO PATIENT [facility] USFHP -NILESH DRISCOLL 2021 [facility] [id number] 3601 GAUTAM MARCELO PATIENT [facility] PLAN [place] Barlow 2021 [facility] [id number] [phone] 9 GAUTAM MARCELO PATIENT Selected Encounter This section includes the information on record at [place] for the Encounter. Date/Time Encounter Type Encounter Description Reason Pro vider Source Nov 04, 2023 12:00 PM Outpatient Encounter COMMUNITY CARE CONSULT IHE Encounter Template Text not used by MI Plan of Treatment: Future Appointments (+ 6 months) and Future Tests (+/- 45 days) The Plan of Treatment section includes future care activities for the patient from all [place] treatmentfacilities. This section includes future appointments and future orders which are active, pending or scheduled. Future Appointments This section includes appointments that were scheduled to occur 6 months from the date of the Encounter, up to a maximum of 20 appointments. The data comes from all [place] treatment facilities. Appointment Date/Time Appointment Type Appointme nt Facility Name Mar 19, 2024 10:30 AM AMBULATORY - MEDICINE [facility] Mar 30, 2024 07:00 AM AMBULATORY MEDICINE [facility] Social History: Smoking Status (Most current) and Tobacco Use (All prior to encounter date) This section includes the most current, and the historical, smoking and tobacco- related health factors from the [place] facility where the Encounter took place. Current Smoking Status This section includes the most current smoking, or tobacco-related health factor, from the [place] facility where the Encounter took place. Date/Time Current Smoking Status Comment Facil ity September 19, 2023 09:30 AM VA-TOBACCO FORMER USER [facility] Tobacco Use History This section includes a history of the smoking, or tobacco-related health factors, that were collected on or before the date of the Encounter. The data comes from the [place] facility where the Encounter took place. Date/Time Smoking Status/Tobacco Use Comment F acility September 19, 2023 09:30 AM MI-TOBACCO QUIT 15 YRS OR MORE [facility] Sep 11, 2022 10:30 AM VA-TOBACCO FORMER USER [facility] [place] [facility] Sep 11, 2022 10:30 AM VA-TOBACCO QUIT 5 TO < 15 YRS [facility] [place] [facility] Sep 04, 2021 09:00 AM VA-TOBACCO FORMER USER [facility] [place] [facility] Sep 04, 2021 09:00 AM VA-TOBACCO QUIT 5 TO < 15 YRS [facility] [place] [facility] Jul 20, 2020 08:30 AM VA-TOBACCO FORMER USER [facility] [place] [facility] Jul 20, 2020 08:30 AM VA-TOBACCO QUIT 5 TO < 15 YRS [facility] [place] [facility] Dec 05, 2017 11:14 AM QUIT TOBACCO USE > 7 YEARS AGO [place] [facility] [place] [facility] Encounter Notes: All associated encounter notes This section contains the clinical notes associated to the Encounter. Date/Time Encounter Note(s) Provider Source Nov 04, 2023 12:00 PM NONVA CONSULT: LOCAL TITLE: COMMUNITY CARE-CONSULT RESULT NOTE STANDARD TITLE: NONVA CONSULT DATE OF NOTE: NOV 04, 2023@12:00 ENTRY DATE: APR 21, 2024@12:33:54 AUTHOR: BRIAN PACE EXP COSIGNER: URGENCY: STATUS: COMPLETED VistA Imaging - Scanned Document SCANNED DOCUMENT SIGNATURE NOT REQUIRED Electronically Filed: 04/21/2024 by: BRIAN PACE JEWELRY MAKER BRIAN PACE [place] [facility]
--- OUTSIDE RECORDS SUMMARY | 2024-06-04 15:26 | XMS_ITS | Encounter Summary ---
Author Name Department of [place] Organization Department of Veter[place] Address [address] [place] [address] Care Team Providers Care Electrical Plumbing Supervisor Name Role Phone HEIDI KRAMER Primary Care [...] SELF PLUS ONE May 28, 2015 113 [id number] 59 GAUTAM MARCELO PATIENT CAREMARK-F EP BCBS PRESCRIPT ION FEP CAREM ARK May 19, 2010 [id number] 59 GAUTAM MARCELO PATIENT EXPRESS SCRIPTS TRICA RE DODA May 19, 2022 DODA [id number] 3601 GAUTAM MARCELO PATIENT OPTUM RX PRESCRIPT ION RX May 19, 2022 THPRX [id number] [address] [facility] POINT OF SERVICE POS 2021 [id number] GAUTAM MARCELO PATIENT [facility] TON JulJun 06, 2021 [id number] 3601 GAUTAM MARCELO PATIENT [facility] PLAN USFHP -NILESH DRISCOLL 2021 [facility] [id number] 3601 GAUTAM MARCELO PATIENT [facility] PLAN [place] Barlow 2021 [facility] [id number] 91 GAUTAM MARCELO PATIENT Selected Encounter This section includes the information on record at [place] for the Encounter. Date/Time Encounter Type Encounter Description Reason Pro vider Source Nov 26, 2023 12:00 AM Outpatient Encounter EVENT (HISTORICAL) IHE Encounter Template Text not used by [place] Plan of Treatment: Future Appointments (+ 6 months) and Future Tests (+/- 45 days) The Plan of Treatment section includes future care activities for the patient from all [place] treatmentfacilities. This section includes future appointments and future orders which are active, pending or scheduled. Future Appointments This section includes appointments that were scheduled to occur 6 months from the date of the Encounter, up to a maximum of 20 appointments. The data comes from all [place] treatment facilities. Appointment Date/Time Appointment Type Appointme nt Facility Name Mar 19, 2024 10:30 AM [facility] [place] [facility] Mar 30, 2024 07:00 AM [facility] Immunizations: All administered on the encounter date This section contains immunizations associated to the Encounter. Immunization Series Date Issued Reaction Comments TDAP Nov 26, 2023 Ramona Vaughn in [place] Social History: Smoking Status (Most current) and Tobacco Use (All prior to encounter date) This section includes the most current, and the historical, smoking and tobacco- related health factors from the [place] facility where the Encounter took place. Current Smoking Status This section includes the most current smoking, or tobacco-related health factor, from the [place] facility where the Encounter took place. Date/Time Current Smoking Status Comment King martinez September 19, 2023 09:30 AM [place]-TOBACCO [facility] [place] [facility] Tobacco Use History This section includes a history of the smoking, or tobacco-related health factors, that were collected on or before the date of the Encounter. The data comes from the [place] facility where the Encounter took place. Date/Time Smoking Status/Tobacco Use Comment F acility September 19, 2023 09:30 AM VA-TOBACCO QUIT 15 YRS OR MORE [facility] [place] [facility] Sep 11, 2022 10:30 AM VA-TOBACCO FORMER USER [facility] [place] [facility] Sep 11, 2022 10:30 AM VA-TOBACCO QUIT 5 TO < 15 YRS [place] [facility] [place] [facility] Sep 04, 2021 09:00 AM VA-TOBACCO FORMER USER [place] [facility] [place] [facility] Sep 04, 2021 09:00 AM VA-TOBACCO QUIT 5 TO < 15 YRS [place] [facility] [place] [facility] Jul 20, 2020 08:30 AM VA-TOBACCO FORMER USER [place] [facility] [place] [facility] Jul 20, 2020 08:30 AM VA-TOBACCO QUIT 5 TO < 15 YRS [facility] [place] [facility] Dec 05, 2017 11:14 AM QUIT TOBACCO USE > 7 YEARS AGO [place] [facility] [place] [facility]
--- OUTSIDE RECORDS SUMMARY | 2024-06-04 15:26 | XMS_ITS | Encounter Summary ---
Author Name Department [place] Organization [place] Address [address] [place] [address] Care Team Providers Care Java Manager Name Role Phone HEIDI HERRING Primary Care [...] SELF PLUS ONE May 28, 2015 113 [id number] 59 GAUTAM MARCELO PATIENT CAREMARK-F EP BCBS PRESCRIPT ION FEP CAREM ARK May 19, 2010 [id number] [phone] GAUTAM MARCELO PATIENT EXPRESS SCRIPTS TRICA RE DODA May 19, 2022 DODA [id number] 3601 GAUTAM MARCELO PATIENT OPTUM RX PRESCRIPT ION RX May 19, 2022 THPRX [id number] 3601 GAUTAM MARCELO PATIENT [facility] POINT OF SERVICE POS 2021 [id number] GAUTAM MARCELO PATIENT [facility] TON JulJun 06, 2021 [id number] GAUTAM MARCELO PATIENT [facility] USP -NILESH DRISCOLL 2021 [id number] 3601 GAUTAM MARCELO PATIENT [facility] [place] Barlow 2021 [facility] [id number] 91 GAUTAM MARCELO PATIENT Selected Encounter This section includes the information on record at [place] for the Encounter. Date/Time Encounter Type Encounter Description Reason Provider Source Apr 29, 2024 12:13 PM Outpatient Encounter PRIMARY CARE/MEDICINE HEIDI HERRING Cain Encounter Template Text not used by [place] Plan of Treatment: Future Appointments (+ 6 months) and Future Tests (+/- 45 days) The Plan of Treatment section includes future care activities for the patient from all [place] treatmentfacilities. This section includes future appointments and future orders which are active, pending or scheduled. Future Appointments This section includes appointments that were scheduled to occur 6 months from the date of the Encounter, up to a maximum of 20 appointments. The data comes from all [place] treatment facilities. Appointment Date/Time Appointment Type Appointme nt Facility Name Sep 14, 2024 09:00 AM [facility] [place] [facility] Active, Pending, and Scheduled Orders This section includes a listing of several types of active, pending, and scheduled orders, including clinic medications orders, diagnostic test orders, procedure orders and consult orders; where the start date of the order is 45 days before the date of the Encounter or 45 days after the date of theEncounter. The data comes from all [place] treatment facilities. Test Date/Time Test Type Test Details Facility Name Mar 19, 2024 10:57 AM Consult Order COMMUNITY CARE-NEUROLOGY Cons Product Control And Logistics Analyst's Choice [facility] [place] [facility] Social History: Smoking Status (Most current) and Tobacco Use (All prior to encounter date) This section includes the most current, and the historical, smoking and tobacco- related health factors from the [place] facility where the Encounter took place. Current Smoking Status This section includes the most current smoking, or tobacco-related health factor, from the [place] facility where the Encounter took place. Date/Time Current Smoking Status Comment King martinez September 19, 2023 09:30 AM [place]-TOBACCO [facility] Tobacco Use History This section includes a history of the smoking, or tobacco-related health factors, that were collected on or before the date of the Encounter. The data comes from the [place] facility where the Encounter took place. Date/Time Smoking Status/Tobacco Use Comment F acility September 19, 2023 09:30 AM VA-TOBACCO QUIT 15 YRS OR MORE [place] [facility] [place] [facility] Sep 11, 2022 10:30 AM VA-TOBACCO FORMER USER [place] [facility] [place] [facility] Sep 11, 2022 10:30 AM VA-TOBACCO QUIT 5 TO < 15 YRS [place] [facility] [place] [facility] Sep 04, 2021 09:00 AM VA-TOBACCO FORMER USER [place] [facility] [place] [facility] Sep 04, 2021 09:00 AM VA-TOBACCO QUIT 5 TO < 15 YRS [place] [facility] [place] [facility] Jul 20, 2020 08:30 AM VA-TOBACCO FORMER USER [place] [facility] [place] [facility] Jul 20, 2020 08:30 AM VA-TOBACCO QUIT 5 TO < 15 YRS [place] [facility] [place] [facility] Dec 05, 2017 11:14 AM QUIT TOBACCO USE > 7 YEARS AGO [place] [facility] [place] [facility] Encounter Notes: All associated encounter notes This section contains the clinical notes associated to the Encounter. Date/Time Encounter Note(s) Provider Source Apr 29, 2024 12:13 PM PRIMARY CARE SECUR E MESSAGING: LOCAL TITLE: PRIMARY CARE SECURE MESSAGING STANDARD TITLE: PRIMARY CARE SECURE MESSAGING DATE OF NOTE: APR 29, 2024@12:13 ENTRY DATE: APR 29, 2024@12:13:31 AUTHOR: HEIDI HERRING EXP COSIGNER: URGENCY: STATUS: COMPLETED PRIMARY CARE SECURE MESSAGING Has ADDENDA ------Original Message ------- Sent: 04/29/2024 08:20 AM ET From: MIREYA MARCELO To: Radha HERRING_PRIMARY CARE_[facility] Subject: Medication:GABAPENTIN 600 mg Good morning, Dr Herring Could you please renew my Gabapentin 600mg as it is not showing up on my active prescription list. Thank you, Domo /richmond/ Heidi Herring MD Staff Physician Signed: 04/29/2024 12:13 04/29/2024 ADDENDUM STATUS: COMPLETED Called patient to discuss, left general message on voicemail. /[place]/ Heidi Herring MD Staff Physician Signed: 04/29/2024 12:14 05/03/2024 ADDENDUM STATUS: COMPLETED Done. /[place]mond/ Heidi Herring MD Staff Physician Signed: 05/03/2024 17:03 HEIDI HERRING [facility]
--- OUTSIDE RECORDS SUMMARY | 2024-06-04 15:26 | XMS_ITS | Encounter Summary ---
Author Name Department of [place] Organization [place] Address [address] [place] [address] Care Team Providers Care Administrative Professional Name Role Phone HEIDI HERRING Primary Care [...] SELF PLUS ONE May 28, 2015 113 [id number] 59 GAUTAM MARCELO PATIENT CAREMARK-F EP BCBS PRESCRIPT ION FEP CAREM ARK May 19, 2010 [id number] 59 GAUTAM MARCELO PATIENT EXPRESS SCRIPTS TRICA RE DODA May 19, 2022 DODA [id number] 3601 GAUTAM MARCELO PATIENT OPTUM RX PRESCRIPT ION RX May 19, 2022 THPRX [id number] 3601 GAUTAM MARCELO PATIENT [facility] POINT OF SERVICE POS 2021 [id number] GAUTAM MARCELO PATIENT [facility] TON MAR 2021 [id number] GAUTAM MARCELO PATIENT [facility] USP -NILESH DRISCOLL 2021 [id number] GAUTAM MARCELO PATIENT [facility] [place] Barlow 2021 [facility] [id number] 91 GAUTAM MARCELO PATIENT Selected Encounter This section includes the information on record at [place] for the Encounter. Date/Time Encounter Type Encounter Description Reason Provider Source Oct 27, 2023 06:54 AM Outpatient Encounter PRIMARY CARE/MEDICINE KAREN YOUNG Cain Encounter Template Text not used by [place] Plan of Treatment: Future Appointments (+ 6 months) and Future Tests (+/- 45 days) The Plan of Treatment section includes future care activities for the patient from all [place] [facility] This section includes future appointments [...] 04, 2023 08:20 AM AMBULATORY - MEDICINE [facility] Mar 19, 2024 10:30 AM AMBULATORY MEDICINE [facility] Mar 30, 2024 07:00 AM AMBULATORY MEDICINE [facility] Social History: Smoking Status (Most current) [...] 19, 2023 09:30 AM VA-TOBACCO FORMER USER [facility] Tobacco Use History This section includes a history of the smoking, or tobacco-related health factors, that were collected on or before the date of the Encounter. The data comes from the [place] facility where the Encounter took place. Date/Time Smoking Status/Tobacco Use Comment F acility September 19, 2023 09:30 AM VA-TOBACCO QUIT 15 YRS OR MORE [facility] [place] [facility] Sep 11, 2022 10:30 AM VA-TOBACCO FORMER USER [facility] [place] [facility] Sep 11, 2022 10:30 AM VA-TOBACCO QUIT 5 TO < 15 YRS [facility] [place] [facility] Sep 04, 2021 09:00 AM VA-TOBACCO FORMER USER [facility] [place] [facility] Sep 04, 2021 09:00 AM VA-TOBACCO QUIT 5 TO < 15 YRS [facility] [place] [facility] Jul 20, 2020 08:30 AM VA-TOBACCO FORMER USER [facility] [place] [facility] Jul 20, 2020 08:30 AM VA-TOBACCO QUIT 5 TO < 15 YRS [place] [facility] [place] [facility] Dec 05, 2017 11:14 AM QUIT TOBACCO USE > 7 YEARS AGO [place] [facility] [place] [facility] Encounter Notes: All associated encounter notes This section contains the clinical notes associated to the Encounter. Date/Time Encounter Note(s) Provider Source Oct 27, 2023 06:54 AM PRIMARY CARE [employer] MESSAGING: LOCAL TITLE: PRIMARY CARE SECURE MESSAGING STANDARD TITLE: PRIMARY CARE SECURE MESSAGING DATE OF NOTE: OCT 27, 2023@06:54 ENTRY DATE: OCT 27, 2023@07:54:34 AUTHOR: KAREN YOUNG EXP COSIGNER: URGENCY: STATUS: COMPLETED PRIMARY CARE SECURE MESSAGING Has ADDENDA ------Original Message -------- Sent: 10/27/2023 07:36 AM ET From: MIREYA MARCELO To: Radha HERRING_PRIMARY CARE_[facility] Subject: Medication:IBUPROFEN 60 MG Good morning, Dr Herring I have this prescription that is not in my active file. Could you please renew for a new prescription. Thank you, Domo /rich[place]/ KAREN YOUNG REGISTERED NURSE Signed: 10/27/2023 07:54 Receipt Acknowledged By: 10/27/2023 13:18 /rich[place]/ Heidi Herring MD Staff Physician 10/27/2023 ADDENDUM STATUS: COMPLETED Done. /es/ Heidi Herring MD Staff Physician Signed: 10/27/2023 13:18 KAREN YOUNG [place] [facility]
--- OUTSIDE RECORDS SUMMARY | 2024-06-04 15:27 | XMS_ITS ---
Author Name Department of [place]a [place] Organization [place] Address [address] [place] [address] Care Team Providers Care Senior Grant Writer Name Role Phone HEIDI HERRING Primary Care [...] SELF PLUS ONE May 28, 2015 113 [id number] 59 GAUTAM MARCELO PATIENT CAREMARK-F EP BCBS PRESCRIPT ION FEP CAREM ARK May 19, 2010 [id number] [phone] GAUTAM MARCELO PATIENT EXPRESS SCRIP[employer] TRICA RE DODA May 19, 2022 DODA [id number] 3601 GAUTAM MARCELO PATIENT OPTUM RX PRESCRIPT ION RX May 19, 2022 THPRX [id number] 3601 GAUTAM MARCELO PATIENT [facility] POINT OF SERVICE POS 2021 [id number] [phone] GAUTAM MARCELO PATIENT [facility] TON MAR 2021 [id number] [phone] GAUTAM MARCELO PATIENT [facility] PLAN USP -NILESH DRISCOLL 2021 [id number] [phone] GAUTAM MARCELO PATIENT [facility] [place] Barlow 2021 [facility] [id number] [phone] 9 GAUTAM MARCELO PATIENT Selected Encounter This section includes the information on record at [place] for the Encounter. Date/Time Encounter Type Encounter Description Reason Provider Source May 06, 2024 02:26 PM Outpatient Encounter PRIMARY CARE/MEDICINE HEIDI HERRING Cain Encounter Template Text not used by MI [...] 14, 2024 09:00 AM [facility] Social History: Smoking Status (Most current) and Tobacco Use (All prior to encounter date) This section includes the most current, and the historical, smoking and tobacco- related health factors from the [place] facility where the Encounter took place. Current Smoking Status This section includes the most current smoking, or tobacco-related health factor, from the [place] facility where the Encounter took place. Date/Time Current Smoking Status Comment Facil ity September 19, 2023 09:30 AM [facility] [place] [facility] Tobacco Use History This section includes a history of the smoking, or tobacco-related health factors, that were collected on or before the date of the Encounter. The data comes from the [place] facility where the Encounter took place. Date/Time Smoking Status/Tobacco Use Comment F acility September 19, 2023 09:30 AM MI-TOBACCO QUIT 15 YRS OR MORE [facility] Sep 11, 2022 10:30 AM [facility]AC[facility] [place] [facility] Sep 11, 2022 10:30 AM VA-TOBACCO QUIT 5 TO < 15 YRS [place] [facility] [place] [facility] Sep 04, 2021 09:00 AM VA-TOBACCO FORMER USER [place] [facility] [place] [facility] Sep 04, 2021 09:00 AM VA-TOBACCO QUIT 5 TO < 15 YRS [facility] [place] [facility] Jul 20, 2020 08:30 AM VA-TOBACCO FORMER USER [place] [facility] [place] [facility] Jul 20, 2020 08:30 AM VA-TOBACCO QUIT 5 TO < 15 YRS [place] [facility] [place] [facility] Dec 05, 2017 11:14 AM QUIT TOBACCO USE > 7 YEARS AGO [place] [facility] [facility] Encounter Notes: All associated encounter notes This section contains the clinical notes associated to the Encounter. Date/Time Encounter Note(s) Provider Source May 06, 2024 02:26 PM PRIMARY CARE [employer] E MESSAGING: LOCAL TITLE: PRIMARY CARE SECURE MESSAGING STANDARD TITLE: PRIMARY CARE SECURE MESSAGING DATE OF NOTE: MAY 06, 2024@14:26 ENTRY DATE: MAY 06, 2024@14:26:17 AUTHOR: HEIDI HERRING EXP COSIGNER: URGENCY: STATUS: COMPLETED ------Original Message ------- Sent: 05/06/2024 11:19 AM ET From: MIREYA MARCELO To: Radha HERRING_PRIMARY CARE_[facility] Subject: Medication:GABAPENTIN 600 mg Good morning, Dr Herring Could you please renew my Gabapentin 600mg as it is not showing up on my active prescription list. Thank you, Domo /[place]/ Heidi Herring MD Staff Physician Signed: 05/06/2024 14:26 HEIDI HERRING [place] [facility]
--- OUTSIDE RECORDS SUMMARY | 2024-06-04 15:27 | XMS_ITS | Encounter Summary ---
Author Name [facility] [place] Organization [place] Address [address] [place] [id number] Care Team Providers Care Blending Kettle Tender Name Role Phone HEIDI HERRING Primary Care [...] SELF PLUS ONE May 28, 2015 113 [id number] 59 GAUTAM MARCELO PATIENT CAREMARK-F EP BCBS PRESCRIPT ION FEP CAREM ARK May 19, 2010 [id number] GAUTAM MARCELO PATIENT [employer] TRICA RE DODA May 19, 2022 DODA [id number] GAUTAM MARCELO PATIENT OPTUM RX PRESCRIPT ION RX May 19, 2022 THPRX [id number] [phone] GAUTAM MARCELO PATIENT [facility] POINT OF SERVICE POS 2021 [id number] GAUTAM MARCELO PATIENT [facility] TON MAR 2021 [id number] GAUTAM MARCELO PATIENT [facility] PLAN USP -NILESH DRISCOLL 2021 [id number] GAUTAM MARCELO PATIENT [facility] BREANNA Barlow 2021 [facility] [id number] 91 GAUTAM MARCELO PATIENT Selected Encounter This section includes the information on record at [place] for the Encounter. Date/Time Encounter Type Encounter Description Reason Provider Source Jun 03, 2024 12:56 PM Outpatient Encounter PRIMARY CARE/MEDICINE HEIDI HERRING Cain Encounter Template Text not used by [place] Plan of Treatment: Future Appointments (+ 6 months) and Future Tests (+/- 45 days) The Plan of Treatment section includes future care activities for the patient from all [place] treatmentfacilities. This section includes future appointments and future orders which are active, pending or scheduled. Future Appointments This section includes appointments that were scheduled to occur 6 months from the date of the Encounter, up to a maximum of 20 appointments. The data comes from all [place] treatment facilities. Appointment Date/Time Appointment Type Appointme nt Facility Name Sep 14, 2024 09:00 AM [facility] Social History: Smoking Status (Most [...] 19, 2023 09:30 AM [facility] [place] [facility] Tobacco Use History This section includes a history of the smoking, or tobacco-related health factors, that were collected on or before the date of the Encounter. The data comes from the [place] facility where the Encounter took place. Date/Time Smoking Status/Tobacco Use Comment F acility September 19, 2023 09:30 AM [place]-TOBAC[place] QUIT 15 YRS OR MORE [place] [facility] Sep 11, 2022 10:30 AM [facility] [place] [facility] Sep 11, 2022 10:30 AM VA-TOBACCO QUIT 5 TO < 15 YRS [place] [facility] [facility] Sep 04, 2021 09:00 AM VA-TOBACCO FORMER USER [place] [facility] [place] [facility] Sep 04, 2021 09:00 AM VA-TOBACCO QUIT 5 TO < 15 YRS [place] [facility] [place] [facility] Jul 20, 2020 08:30 AM VA-TOBACCO FORMER USER [place] [facility] [place] [facility] Jul 20, 2020 08:30 AM VA-TOBACCO QUIT 5 TO < 15 YRS [place] [facility] [facility] Dec 05, 2017 11:14 AM QUIT TOBACCO USE > 7 YEARS AGO [place] [facility] [facility] Encounter Notes: All associated encounter notes This section contains the clinical notes associated to the Encounter. Date/Time Encounter Note(s) Provider Source Jun 03, 2024 12:56 PM PRIMARY CARE [employer] E MESSAGING: LOCAL TITLE: PRIMARY CARE SECURE MESSAGING STANDARD TITLE: PRIMARY CARE SECURE MESSAGING DATE OF NOTE: JUN 03, 2024@12:56 ENTRY DATE: JUN 03, 2024@12:56:03 AUTHOR: HEIDI HERRING EXP COSIGNER: URGENCY: STATUS: COMPLETED ------Original Message ------ Sent: 06/03/2024 10:05 AM ET From: MIREYA MARCELO To: Radha HERRING_PRIMARY CARE_[facility] Subject: Medication:Refill Renewal Good morning, Dr Herring, My Montelukast 10 Mg prescription is due for a refill renewal, can you please renew this. Thank-Domo enriquez ------Original Message ------ Sent: 06/03/2024 12:55 PM ET From: HEIDI HERRING To: MIREYA MARCELO Subject: Medication:Refill Renewal Medication renewed for mailing. /[place]/ Heidi Herring MD Staff Physician Signed: 06/03/2024 12:56 HEIDI HERRING [place] [facility]
--- OUTSIDE RECORDS SUMMARY | 2024-06-04 15:27 | XMS_ITS | Encounter Summary ---
Author Name [facility] [place] Address [address] [place] [address] Care Team Providers Care Practice Or Student Teacher Name Role Phone HEIDI KRAMER Primary Care [...] SELF PLUS ONE May 28, 2015 113 [id number] [phone] GAUTAM MARCELO PATIENT CAREMARK-F EP BCBS PRESCRIPT ION FEP CAREM ARK May 19, 2010 [id number] [phone] GAUTAM MARCELO PATIENT [employer] [facility]CRIP[facility] TRICA RE DODA May 19, 2022 DODA [id number] [id number] GAUTAM MARCELO PATIENT OPTUM RX PRESCRIPT ION RX May 19, 2022 THPRX [id number] 3601 GAUTAM MARCELO PATIENT [facility] POINT OF SERVICE POS 2021 [id number] [phone] GAUTAM MARCELO PATIENT [facility] TON MAR 2021 [id number] GAUTAM MARCELO PATIENT [facility] -NILESH DRISCOLL 2021 [facility] [id number] GAUTAM MARCELO PATIENT [facility] PLAN [place] Barlow 2021 [facility] [id number] [phone] GAUTAM MARCELO PATIENT Selected Encounter This section includes the information on record at [place] for the Encounter. Date/Time Encounter Type Encounter Description Reason Pro vider Source May 01, 2024 10:23 AM Outpatient Encounter OPTOM[facility]RY IHE Encounter Template Text not used by [place] Plan of Treatment: Future Appointments (+ 6 months) and Future Tests (+/- 45 days) The Plan of Treatment section includes future care activities for the patient from all [place] treatmentfacilities. This section includes future appointments and future orders which are active, pending or scheduled. Future Appointments This section includes appointments that were scheduled to occur 6 months from the date of the Encounter, up to a maximum of 20 appointments. The data comes from all [place] treatment facilities. Appointment Date/Time Appointment Type Appointme nt Facility Name Sep 14, 2024 09:00 AM AMBULATORY - MEDICINE [facility] Active, Pending, and Scheduled Orders This section includes a listing of several types of active, pending, and scheduled orders, including clinic medications orders, diagnostic test orders, procedure orders and consult orders; where the start date of the order is 45 days before the date of the Encounter or 45 days after the date of theEncounter. The data comes from all [place] treatment facilities. Test Date/Time Test Type Test Details Facility Name Mar 19, 2024 10:57 AM Consult Order COMMUNITY CARE-NEUROLOGY Cons [employer] Work Supervisor[facility] Social History: Smoking Status (Most current) and Tobacco Use (All prior to encounter date) This section includes the most current, and the historical, smoking and tobacco- related health factors from the [place] facility where the Encounter took place. Current Smoking Status This section includes the most current smoking, or tobacco-related health factor, from the [place] facility where the Encounter took place. Date/Time Current Smoking Status Comment Facil juan September 19, 2023 09:30 AM [place]-TOBACCO [facility] Tobacco Use History This section includes a history of the smoking, or tobacco-related health factors, that were collected on or before the date of the Encounter. The data comes from the [place] facility where the Encounter took place. Date/Time Smoking Status/Tobacco Use Comment F acility September 19, 2023 09:30 AM VA-TOBACCO QUIT 15 YRS OR MORE [place] [facility] [facility] [...] VA-TOBACCO QUIT 5 TO < 15 YRS [place] [facility] [place] [facility] Jul 20, 2020 08:30 AM VA-TOBACCO FORMER USER [place] [facility] [place] [facility] Jul 20, 2020 08:30 AM VA-TOBACCO QUIT 5 TO < 15 YRS [place] [facility] [place] [facility] Dec 05, 2017 11:14 AM QUIT TOBACCO USE > 7 YEARS AGO [place] [facility] [place] [facility] Encounter Notes: All associated encounter notes This section contains the clinical notes associated to the Encounter. Date/Time Encounter Note(s) Provider Source May 01, 2024 10:23 AM ADMINISTRATIVE NOT E: LOCAL TITLE: ADMINISTRATIVE RECALL NOTE STANDARD TITLE: ADMINISTRATIVE NOTE DATE OF NOTE: MAY 01, 2024@10:23 ENTRY DATE: MAY 01, 2024@10:24:01 AUTHOR: TULIO HAMILTON COSIGNER: URGENCY: STATUS: COMPLETED RTC orders: Unable to contact patient: Attempts to contact: 1st attempt: Left voicemail 2nd attempt: Letter mailedDisposition onApr 3rd attempt: 4th attempt: Called and left a voicemail to let them know that the following appointment has been cancelled by clinic: 10/01/2024 with [facility]. Asked that they call [phone] Ext: [phone] to reschedule. Cancel by clinic letter has been mailed. PER LEAF REQ RESCHEDULE ON TUESDAYS CLOSEST TO RTC DATE [facility] /[place]/ TULIO HAMILTON ADVANCED ASSISTANT STATISTICIAN Signed: 05/01/2024 10:24 TULIO HAMILTON [facility]
--- OUTSIDE RECORDS SUMMARY | 2024-06-04 15:27 | XMS_ITS | Encounter Summary ---
Author Name [place] Address [address] [place] [address] Care Team Providers Care Watch And Clock Maker And Repairer Name Role Phone HEIDI HERRING Primary Care [...] SELF PLUS ONE May 28, 2015 113 [id number] 59 GAUTAM MARCELO PATIENT CAREMARK-F EP BCBS PRESCRIPT ION FEP CAREM ARK May 19, 2010 [id number] GAUTAM MARCELO PATIENT [employer] TRICA RE DODA May 19, 2022 DODA [id number] 3601 GAUTAM MARCELO PATIENT OPTUM RX PRESCRIPT ION RX May 19, 2022 THPRX [id number] [phone] GAUTAM MARCELO PATIENT [facility] POINT OF SERVICE POS 2021 [id number] GAUTAM MARCELO PATIENT [facility] TON JulJun 06, 2021 [id number] GAUTAM MARCELO PATIENT [facility] PLAN USP -NILESH DRISCOLL 2021 [id number] GAUTAM MARCELO PATIENT [facility] PLAN [place] Barlow 2021 [facility] [id number] [phone] GAUTAM MARCELO PATIENT Selected Encounter This section includes the information on record at [place] for the Encounter. Date/Time Encounter Type Encounter Description Reason Pro vider Source May 03, 2024 05:01 PM Outpatient Encounter PRIMARY CARE/MEDICINE IHE Encounter Template Text not used by [place] Plan of Treatment: Future Appointments (+ 6 months) and Future Tests (+/- 45 days) The Plan of Treatment section includes future care activities for the patient from all [place] treatmentfacilities. This section includes future appointments and future orders which are active, pending or scheduled. Future Appointments This section includes appointments that were scheduled to occur 6 months from the date of the Encounter, up to a maximum of 20 appointments. The data comes from all [place] treatment facilities. Appointment Date/Time Appointment Type Appointme nt Facility Name Sep 14, 2024 09:00 AM AMBULATORY - MEDICINE [facility] [place] [facility] Active, Pending, and Scheduled Orders This section includes a listing of several types of active, pending, and scheduled orders, including clinic medications orders, diagnostic test orders, procedure orders and consult orders; where the start date of the order is 45 days before the date of the Encounter or 45 days after the date of theEncounter. The data comes from all [place] treatment facilities. Test Date/Time Test Type Test Details Facility Name Mar 19, 2024 10:57 AM Consult Order COMMUNITY CARE-NEUROLOGY Cons Neurology Director's Choice [place] [facility] Social History: Smoking Status (Most current) and Tobacco Use (All prior to encounter date) This section includes the most current, and the historical, smoking and tobacco- related health factors from the [place] facility where the Encounter took place. Current Smoking Status This section includes the most current smoking, or tobacco-related health factor, from the [place] facility where the Encounter took place. Date/Time Current Smoking Status Comment [place] September 19, 2023 09:30 AM VA-TOBACCO FORMER USER [place] [facility] Tobacco Use History This section includes a history of the smoking, or tobacco-related health factors, that were collected on or before the date of the Encounter. The data comes from the [place] facility where the Encounter took place. Date/Time Smoking Status/Tobacco Use Comment F acility September 19, 2023 09:30 AM VA-TOBACCO QUIT 15 YRS OR MORE [place] [facility] [facility] Sep 11, 2022 10:30 AM VA-TOBACCO FORMER USER [place] [facility] [facility] Sep 11, 2022 10:30 AM VA-TOBACCO QUIT 5 TO < 15 YRS [place] [facility] [place] [facility] Sep 04, 2021 09:00 AM VA-TOBACCO FORMER USER [place] [facility] [facility] Sep 04, 2021 09:00 AM VA-TOBACCO QUIT 5 TO < 15 YRS [place] [facility] Jul 20, 2020 08:30 AM VA-TOBACCO FORMER USER [place] [facility] Jul 20, 2020 08:30 AM VA-TOBACCO QUIT 5 TO < 15 YRS [place] [facility] Dec 05, 2017 11:14 AM QUIT TOBACCO USE > 7 YEARS AGO [place] [facility] Encounter Notes: All associated encounter notes This section contains the clinical notes associated to the Encounter. Date/Time Encounter Note(s) Provider Source May 03, 2024 05:01 PM ACCOUNTING OF DISC LOSURES NOTE: LOCAL TITLE: STATE PRESCRIPTION DRUG MONITORING PROGRAM ([facility]) STANDARD TITLE: ACCOUNTING OF DISCLOSURES NOTE DATE OF NOTE: MAY 03, 2024@17:01 ENTRY DATE: MAY 03, 2024@17:01:08 AUTHOR: HEIDI HERRING EXP COSIGNER: URGENCY: STATUS: COMPLETED State Prescription Drug Monitoring Program (SPDMP) Review The following State Prescription Drug Monitoring Program was queried for this patient: [place] Report Number: The purpose of this query was a part of the medication reconciliation process for the: Renewal of a controlled substance prescription. The findings of the query are as follows: No duplicate therapy prescriptions for controlled substances outside the [facility] were found. /[place]/ Heidi Herring MD Staff Physician Signed: 05/03/2024 17:01 HERRING,HEIDI D [place] [facility] [place] [facility]
--- OUTSIDE RECORDS SUMMARY | 2024-06-04 15:27 | XMS_ITS | Encounter Summary ---
Author Name [place] Address [address] [place] [address] Care Team Providers Care Farm Machine Tender Name Role Phone HEIDI HERRING Primary [...] SELF PLUS ONE May 28, 2015 [id number] GAUTAM MARCELO PATIENT CAREMARK-F EP BCBS PRESCRIPT ION FEP CAREM ARK May 19, 2010 [id number] GAUTAM MARCELO PATIENT [employer]IP[employer] TRICA RE DODA May 19, 2022 DODA [id number] 3601 GAUTAM MARCELO PATIENT OPTUM RX PRESCRIPT ION RX May 19, 2022 THPRX [id number] 3601 GAUTAM MARCELO PATIENT [facility] POINT OF SERVICE POS 2021 [id number] GAUTAM MARCELO PATIENT [facility] TON JulJun 06, 2021 [id number] GAUTAM MARCELO PATIENT [facility] PLAN USP -NILESH DRISCOLL 2021 [id number] [phone] GAUTAM MARCELO PATIENT [facility] PLAN [place] Barlow 2021 [facility] [id number] 91 GAUTAM MARCELO PATIENT Selected Encounter This section includes the [place] on record at [place] for the Encounter. Date/Time Encounter Type Encounter Description Reason Pro vider Source May 06, 2024 02:26 PM Outpatient Encounter PRIMARY CARE/MEDICINE IHE Encounter Template Text not used by [place] Plan of Treatment: Future Appointments (+ 6 months) and Future Tests (+/- 45 days) The Plan of Treatment section includes future care activities for the patient from all [place] treatmentfacilities. This section includes future appointments and future orders which are active, pending or scheduled. Future Appointments This section includes appointments that were scheduled to occur 6 months from the date of the Encounter, up to a maximum of 20 appointments. The data comes from all [place] treatment facilities. Appointment Date/Time Appointment Type Appointme nt Facility Name Sep 14, 2024 09:00 AM [facility] Social History: Smoking Status (Most current) and Tobacco Use (All prior to encounter date) This section includes the most current, and the historical, smoking and tobacco- related health factors from the [place] facility where the Encounter took place. Current Smoking Status This section includes the most current smoking, or tobacco-related health factor, from the [place] facility where the Encounter took place. Date/Time Current Smoking Status Comment Facil ity September 19, 2023 09:30 AM [facility] [place] [facility] Tobacco Use History This section includes a history of the smoking, or tobacco-related health factors, that were collected on or before the date of the Encounter. The data comes from the [place] facility where the Encounter took place. Date/Time Smoking Status/Tobacco Use Comment F acannelise September 19, 2023 09:30 AM [place]-TOBACCO QUIT 15 YRS OR MORE [place] [facility]TR [place] [facility] Sep 11, 2022 10:30 AM [facility]AC[facility] [place] [facility] Sep 11, 2022 10:30 AM VA-TOBACCO QUIT 5 TO < 15 YRS [place] [facility] [place] [facility] Sep 04, 2021 09:00 AM VA-TOBACCO FORMER USER [place] [facility] [place] [facility] Sep 04, 2021 09:00 AM VA-TOBACCO QUIT 5 TO < 15 YRS [place] [facility] [place] [facility] Jul 20, 2020 08:30 AM VA-TOBACCO FORMER USER [place] [facility] [place] [facility] Jul 20, 2020 08:30 AM VA-TOBACCO QUIT 5 TO < 15 YRS [place] [facility] [facility] Dec 05, 2017 11:14 AM QUIT TOBACCO USE > 7 YEARS AGO [facility] Encounter Notes: All associated encounter notes This section contains the clinical notes associated to the Encounter. Date/Time Encounter Note(s) Provider Source May 06, 2024 02:26 PM PRIMARY CARE TELEP SOM ENCOUNTER NOTE: LOCAL TITLE: TELEPHONE NOTE/PRIMARY CARE STANDARD TITLE: PRIMARY CARE TELEPHONE ENCOUNTER NOTE DATE OF NOTE: MAY 06, 2024@14:26 ENTRY DATE: MAY 06, 2024@14:26:58 AUTHOR: HEIDI HERRING EXP COSIGNER: URGENCY: STATUS: COMPLETED Discussed with patient for 10 minutes. Patient received 1 month supply gabapentin from his neurologist Dr. Grubbs 11-04-2023. He received education he cannot get duplicate prescriptions for this medication simultaneously. Too much of this medication can produce respiratory suppression and . He stated he was not aware of this policy and will not do it again. /[place]/ Heidi Herring MD Staff Physician Signed: 05/06/2024 14:28 HEIDI HERRING [place] [facility]
--- OUTSIDE RECORDS SUMMARY | 2024-06-04 15:27 | XMS_ITS | Encounter Summary ---
Author Name [facility] [place] Organization [facility] [place] Address [address] [place] [address] Care Team Providers Care Journalism Professor Name Role Phone HEIDI HERRING Primary Care [...] SELF PLUS ONE May 28, 2015 113 [id number] 59 GAUTAM MARCELO PATIENT [facility]-F EP BCBS PRESCRIPT ION FEP CAREM ARK May 19, 2010 [id number] [phone] GAUTAM MARCELO PATIENT [facility] TRICA RE DODA May 19, 2022 DODA [id number] GAUTAM MARCELO PATIENT [facility] RX PRESCRIPT ION RX May 19, 2022 THPRX [id number] GAUTAM MARCELO PATIENT [facility] POINT OF SERVICE POS 2021 [id number] [phone] [id number] GAUTAM MARCELO PATIENT [facility] TON JulJun 06, 2021 [id number] GAUTAM MARCELO PATIENT [facility] 2021 [id number] [phone] GAUTAM MARCELO PATIENT [facility] Barlow 2021 [facility] [id number] 91 GAUTAM MARCELO PATIENT Selected Encounter This section includes the information on record at [place] for the Encounter. Date/Time Encounter Type Encounter Description Reason Provider Source May 01, 2024 04:22 PM Outpatient Encounter PRIMARY CARE/MEDICINE HEIDI HERRING Cain Encounter Template Text not used by NE [...] 14, 2024 09:00 AM [facility] [place] [facility] Active, Pending, and Scheduled Orders This section includes a listing of several types of active, pending, and scheduled orders, including clinic medications orders, diagnostic test orders, procedure orders and consult orders; where the start date of the order is 45 days before the date of the Encounter or 45 days after the date of theEncounter. The data comes from all [place] treatment facilities. Test Date/Time Test Type Test Details Facility Name Mar 19, 2024 10:57 AM Consult Order COMMUNITY CARE-NEUROLOGY Cons Sales Support Associate's Choice [facility] [place] [facility] Social History: Smoking Status (Most current) and Tobacco Use (All prior to encounter date) This section includes the most current, and the historical, smoking and tobacco- related health factors from the [facility] facility where the Encounter took place. Current Smoking Status This section includes the most current smoking, or tobacco-related health factor, from the [place] facility where the Encounter took place. Date/Time Current Smoking Status Comment King martinez September 19, 2023 09:30 AM [place]-TOBACCO [facility]ER [facility] Tobacco Use History This section includes a history of the smoking, or tobacco-related health factors, that were collected on or before the date of the Encounter. The data comes from the [place] facility where the Encounter took place. Date/Time Smoking Status/Tobacco Use Comment F acility September 19, 2023 09:30 AM VA-TOBACCO QUIT 15 YRS OR MORE [facility] [place] [facility] Sep 11, 2022 10:30 AM VA-TOBACCO FORMER USER [facility] [place] [facility] Sep 11, 2022 10:30 AM VA-TOBACCO QUIT 5 TO < 15 YRS [facility] [place] [facility] Sep 04, 2021 09:00 AM VA-TOBACCO FORMER USER [facility] [place] [facility] Sep 04, 2021 09:00 AM VA-TOBACCO QUIT 5 TO < 15 YRS [facility] [place] [facility] Jul 20, 2020 08:30 AM VA-TOBACCO FORMER USER [facility] [place] [facility] Jul 20, 2020 08:30 AM VA-TOBACCO QUIT 5 TO < 15 YRS [facility] [place] [facility] Dec 05, 2017 11:14 AM QUIT TOBACCO USE > 7 YEARS AGO [facility] [place] [facility] Encounter Notes: All associated encounter notes This section contains the clinical notes associated to the Encounter. Date/Time Encounter Note(s) Provider Source May 01, 2024 04:22 PM PRIMARY CARE SECUR E MESSAGING: LOCAL TITLE: PRIMARY CARE SECURE MESSAGING STANDARD TITLE: PRIMARY CARE SECURE MESSAGING DATE OF NOTE: MAY 01, 2024@16:22 ENTRY DATE: MAY 01, 2024@16:22:51 AUTHOR: HEIDI HERRING EXP COSIGNER: URGENCY: STATUS: COMPLETED ------Original Message ------- Sent: 05/01/2024 07:12 AM ET From: MIREYA MARCELO To: Radha HERRING_PRIMARY CARE_[facility] Subject: Medication:Your Phone call Question Gabapentin [address] I missed your call on Apr 29. I saw you left a voicemail concerning my Gabapentin 300 mg prescription. Domo lozano/ Heidi Herring MD Staff Physician Signed: 05/01/2024 16:22 HE[facility]I [facility]ERRING [facility]
--- OUTSIDE RECORDS SUMMARY | 2024-06-04 15:27 | XMS_ITS | Encounter Summary ---
Author Name [facility] [place] [facility] [place] Address [address] [place] [address] Care Team Providers Care Manager Terminal Name Role Phone HEIDI KRAMER Primary Care [...] SELF PLUS ONE May 28, 2015 113 [id number] GAUTAM MARCELO PATIENT [facility]-F EP BCBS PRESCRIPT ION FEP CAREM ARK May 19, 2010 [id number] GAUTAM MARCELO PATIENT [facility] TRICA RE DODA May 19, 2022 DODA [id number] GAUTAM MARCELO PATIENT [facility] RX PRESCRIPT ION RX May 19, 2022 THPRX [id number] [phone] GAUTAM MARCELO PATIENT [facility] POINT OF SERVICE POS 2021 [id number] [phone] [id number] GAUTAM MARCELO PATIENT [facility] TON MAR 2021 [id number] [phone] GAUTAM MARCELO PATIENT [facility] 2021 [facility] [id number] GAUTAM MARCELO PATIENT [facility] Barlow 2021 [facility] [id number] 91 GAUTAM MARCELO PATIENT Selected Encounter This section includes the information on record at [place] for the Encounter. Date/Time Encounter Type Encounter Description Reason Pro vider Source May 26, 2024 05:42 PM Outpatient Encounter OPTOMETRY IHE Encounter Template Text not used by [place] Plan of Treatment: Future Appointments (+ 6 months) and Future Tests (+/- 45 days) The Plan of Treatment section includes future care activities for the patient from all [place] treatmentfacilities. This section includes future appointments and [...] 14, 2024 09:00 AM AMBULATORY - MEDICINE [facility] Social History: Smoking Status (Most current) [...] 19, 2023 09:30 AM VA-TOBACCO FORMER USER [facility] Tobacco Use History This section includes a history of the smoking, or tobacco-related health factors, that were collected on or before the date of the Encounter. The data comes from the [place] facility where the Encounter took place. Date/Time Smoking Status/Tobacco Use Comment F acannelise September 19, 2023 09:30 AM [place]-TOBACCO QUIT 15 YRS OR [facility] Sep 11, 2022 10:30 AM [facility]BAC[facility] Sep 11, 2022 10:30 AM VA-TOBACCO QUIT 5 TO < 15 YRS [facility] [place] [facility] Sep 04, 2021 09:00 AM VA-TOBACCO FORMER USER [facility] [place] [facility] Sep 04, 2021 09:00 AM VA-TOBACCO QUIT 5 TO < 15 YRS [facility] [place] [facility] Jul 20, 2020 08:30 AM VA-TOBACCO FORMER USER [facility] [place] [facility] Jul 20, 2020 08:30 AM VA-TOBACCO QUIT 5 TO < 15 YRS [facility] [place] [facility] Dec 05, 2017 11:14 AM QUIT TOBACCO USE > 7 YEARS AGO [facility] [place] [facility] Encounter Notes: All associated encounter notes This section contains the clinical notes associated to the Encounter. Date/Time Encounter Note(s) Provider Source May 26, 2024 05:42 PM TELEPHONE ENCOUNTER NOTE: LOCAL TITLE: TELEPHONE NOTE/SPECIALTY CLINIC STANDARD TITLE: TELEPHONE ENCOUNTER NOTE DATE OF NOTE: MAY 26, 2024@17:42 ENTRY DATE: MAY 26, 2024@17:42:53 AUTHOR: MICHAEL SWEET EXP COSIGNER: URGENCY: STATUS: COMPLETED RTC orders: Unable to contact patient: Attempts to contact: 1st attempt: Left voicemail 2nd attempt: Letter mailedDisposition 3rd attempt: 4th attempt: /[place]/ MICHAEL SWEET SLICING MACHINE FEEDER Signed: 05/26/2024 17:43 MICHAEL SWEET [place] [facility] [place] [facility]
== END 2024-06-04 12:50 | disposition home or self-care (01) ==
LOC: HO.MRI 12:49
PROVIDERS: PCP Nurse Practitioner Family; Visit Provider Psychiatry & Neurology Neurology
DX: G35 Multiple sclerosis (principal)
CPT/HCPCS: 70553; 72156; A9585

== ENCOUNTER 2025-01-03 06:10 | Outpatient (REF) | payer OTHER, SELFPAY ==
--- OUTSIDE RECORDS SUMMARY | 2024-10-20 06:20 | XMS_ITS ---
Author Organization [facility] Address [address] [place] [address] Care Team Providers Care Bonding And Composite Fabricator Name Role Phone Nima NEWMAN, Keith Primary Care Provider Unavailab Teja Ribeiro Jr REASON FOR VISIT screening colon Encounters Encounter Location Date Provider Diagnosis [facility] [address] [place] [address] 10/20/2024 Teja Johnson Jr Plan Of Treatment Next Appt Details Provider Name:Teja louis Jr, 01/21/2025 07:30:00 AM, [address] [place] [address] , [place], [place], [phone], Progress Notes * SERINA MARCELOOB:1960 (64 yo M)Acc No.[id number]:10/20/2024 Progress Notes Patient: MIREYA WALKER Provider: José Johnson MD :1960 A ge:64 Y S ex:Male Date:10/20/2024 [facility] Pcp:Keith Herring MD Subjective: * Chief Complaints: [...] 10/20/2024 Generated for Ronald daniel/Tiffani/Edwardoitting on: 0 01/03/2025 06:14 AM EDT
--- OUTSIDE RECORDS SUMMARY | 2025-01-03 06:15 | XMS_ITS | Patient Health Record ---
[facility] Address [address] [address] Care Team Providers Care Sew On Operator Name Role Phone Vinay Clark Primary Care Provider Unav ailable Alessandra Johnson Unavailable [phone] Allergies No Known Allergies Reason For Referral Diagnosis 1 Pain in unspecified foot (M79.673) Referring Provider First Name Fe cMmillan Referring Provider Last Name Lory Referring Provider Speciality Internal M edicine Referred Organization [facility] Jonathan Referred Provider Alessandra Johnson Referred Address [address] ,[place], [place],[address], Referred Provider Specialty Podiatry Referral Priority Routine [...] Status W/U Status Risk Notes Problem Neuropathy (135472065) Neuropathy (G62.9) Active confirmed Vital Signs Blood pressure diastolic 78 mm Hg 05/10/2024 Height 5ft 8 in in 05/10/2024 Blood pressure systolic 126 mm Hg 05/10/2024 Weight 185 lbs 05/10/2024 BMI 28.13 kg/m2 05/10/2024 Encounters Encounter Location Date Provider Diagnosis [facility] [address] [place] [address] 05/10/2024 Alessandra Johnson Neuritis M79.2 ; Neuropathy G62.9 ; Left foot pain M79.672 ; Right foot pain M79.671 and Neurapraxia of left lower extremity, initial encounter 956.9 [facility] [address] 03/17/2024 Alessandra Johnson Assessments Encounter Date Diagnosis [...] Name:Alessandra Valdes doris, 05/09/2025 09:00:00 AM, [address] [place], [address], Insurance Providers Payer Name Payer Address Payer Phone Subscriber Number Group Number Insured Name Patient Relationship to Insured Coverage Start Date Coverage End Date [facility] Health Plan [address] [place] [id number] Dequan Pierre Self - patient is the insured Medical (General) History Medical History History ICD Code Anxiety asthma Depression Multiple sclerosis Numbness Mumps Chicken pox Surgical History Surgery Date(Month/Year) appendectomy 04/1978 broken jaw 09/1979
--- OUTSIDE RECORDS SUMMARY | 2025-01-03 06:15 | XMS_ITS | Clinical Summary ---
Author Organization [facility] Address [address] [place] [address] Phone Care Team Providers Care Press Hand Name Role Phone Keith Herring MD Primary [...] topic Medical Devices Not on file Insurance [employer] [facility] Member Subscriber Plan / Payer (Ef fective 2015-Present) Name:Dequan Pierre Relation to Subscriber:Self Name:DEQUAN PIERRE Payer ID:[id number] (NAIC) Group ID:[id number] Type:PPO Address: [id number] [employer] [facility] [place] [address] [facility] Member Subscriber Plan / Payer (Ef fective 2015-Present) Name:Dequan Pierre Relation to Subscriber:Self Name:DEQUAN PIERRE Payer ID:[id number] (NAIC) Group ID:[id number] Type:PPO Address: [address] [facility] [place] [address] [facility] Member Subscriber Plan / Payer (Ef fective 2015-Present) Name:Dequan Pierre Relation to Subscriber:Self Name:DEQUAN PIERRE Payer ID:[id number] (NAIC) Group ID:[id number] Type:PPO Address: [address] [facility] [place] [address] [facility] Member Subscriber Plan / Payer (Ef fective 2015-Present) Name:Dequan Pierre Relation to Subscriber:Self Name:DEQUAN PIERRE Payer ID:[id number] (NAIC) Group ID:[id number] Type:PPO Address: [address] [facility] Advance Directives For more information, please contact: [phone] (9AM - 5PM [facility], Friday-Friday) Documents on File Type Date Recorded Patient Watch Commander Expl anation Healthcare Proxy 04/24/2018 10:20 AM Care Teams Press Hand Relationship Specialty Start Date End Date Keith Herring MD PCP - General Internal Medicine 12/29/17 Additional Source Comments The information contained in this document represents components of the legal health record. It is not the complete legal health record.[facility]
[2025-01-03 09:58] LABS: MANUAL DIFF FLAG NO
[2025-01-03 10:03] LABS: Hematocrit 42.6 % (42.0-52.0); Hemoglobin 14.6 g/dl (14.0-18.0); Imm Gran Abs Auto 0.01 X10*3/uL (0.00-0.03); Imm Gran Pct Auto 0.2 % (0.0-0.4); Lymphocytes Absolute Auto 1.1 X10*3/uL (1.2-4.9); Mean Corpuscular HGB Conc 34.3 g/dl (31.0-36.0); Mean Corpuscular Hemoglobin 29.3 pg (27.0-33.0); Mean Corpuscular Volume 85.4 fL (80.0-98.0); NRBC Abs Auto 0.000 X10*3/uL (0.0-0.012); NRBC Pct Auto 0.0 /100WBC (0.0-0.2); Platelet Count 215 X10*3/uL (160-400); Red Blood Count 4.99 X10*6/uL (4.60-5.80); White Blood Count 4.6 X10*3/uL (4.8-10.8)
[2025-01-03 10:36] LABS: Appearance Urine Clear; Glucose Urine UA Negative (Negative); PH 5.5 (5.0-9.0); Specific Gravity - Urine >= 1.030 (1.005-1.025); UMIC TRIGGER UACC YES
[2025-01-03 10:54] LABS: Alanine Aminotransferase 19 U/L (0-40); Albumin Level 4.1 g/dL (3.5-5.0); Alkaline Phosphatase 51 U/L (39-117); Anion Gap 11 (12-20); Aspartate Amino Transferase 32 U/L (5-37); Blood Urea Nitrogen 15 mg/dL (9-16); Calcium 8.7 mg/dL (8.4-10.2); Carbon Dioxide 25 mmol/L (22-29); Chloride 108 mmol/L (96-108); Cholesterol 174 mg/dL (<200); Estimated Glomerular Filt Rate > 60; HDL Cholesterol 56 mg/dL (>40); Potassium 4.1 mmol/L (3.3-5.1); Sodium 140 mmol/L (135-145); Total Protein 6.2 g/dL (6.5-8.0); Triglycerides 77 mg/dL (<150)
== END 2025-01-03 06:11 | disposition home or self-care (01) ==
LOC: HO.HMGCLDS 06:10
PROVIDERS: PCP Nurse Practitioner Family; Visit Provider Nurse Practitioner Family
DX: Z12.5 Encounter for screening for malignant neoplasm of prostate (principal); E78.5 Hyperlipidemia, unspecified
CPT/HCPCS: 36415; 80053; 80061; 81001; 81003; 84153; 84443; 85025

== ENCOUNTER 2025-01-05 15:54 | Outpatient (AMB) | payer OTHER, SELFPAY ==
--- OUTSIDE RECORDS SUMMARY | 2024-10-20 06:20 | XMS_ITS ---
Author Organization [facility] Address [address] [place] [address] Care Team Providers Care Automotive Upholsterer Name Role Phone Nima NEWMAN, Keith Primary Care Provider Unavailab Teja Ribeiro Jr [phone] REASON FOR VISIT screening colon Encounters Encounter Location Date Provider Diagnosis [facility] [address] [place] [address] 10/20/2024 Teja Johnson Jr Plan Of Treatment Next Appt Details Provider Name:Teja louis Jr, 01/21/2025 07:30:00 AM, [address] [place] [address] , [place], [place], [phone], Progress Notes * SERINA MARCELOOB:1960 (64 yo M)Acc No.[id number]:10/20/2024 Progress Notes Patient: MIREYA WALKER Provider: José Johnson MD :1960 A ge:64 Y S ex:Male Date:10/20/2024 [facility] Pcp:Keith Herring MD Subjective: * Chief Complaints: [...] MD Date: 0 10/20/2024 Generated for Ronald daniel/Tiffani/Edwardoitting on: 0 01/05/2025 04:32 PM EDT
[2025-01-05 15:58] VITALS: BP 110/70; PULSE 70; O2SAT 98; BMI 28.0
--- NOTE | 2025-01-05 15:58 | MHC.PC.OV ---
Vital Signs 01/05/25 15:58 Height 5 ft 8 in Weight 184 lb BMI 28.0 BP 110/70 Blood Pressure Location Lt brachial Position Sitting Pulse 70 Pulse Source Pulse Oximeter Pulse Oximetry (%) 98 Intake Visit Reasons: PE Allergies seasonal/ enviromental Allergy (Intermediate, Uncoded 01/05/25 16:33) Runny Nose Medication List - Last Reconciled 01/05/25 by Vinay Andujar, CONTINUING EDUCATION DIRECTOR- albuterol sulfate 90 mcg/actuation (ProAir HFA) 0 mcg inhalation bupropion HCl XL (Wellbutrin XL) 300 mg PO QAM fluticasone propionate 50 mcg/actuation sprays intranasal gabapentin 600 mg PO BEDTIME lorazepam 0.5 mg PO BID montelukast 10 mg PO DAILY ocrelizumab (Ocrevus) 600 mg IV [id number] pravastatin 80 mg PO BEDTIME 90 days sertraline 100 mg PO DAILY tamsulosin 0.4 mg PO DAILY triamcinolone acetonide 0.1% 1 appl topical BID-TID Tobacco use date assessed: 01/05/25 Dental Screening Dental Screen Date: 01/05/25 Did you have a dental visit in the last 12 months?: Yes Did you have a dental problem in the last 6 months where you did not have access to dental care?: No Was dental information given to patient?: Patient has dentist HPI PE HPI Details History of Present Illness The patient is a 64-year-old male presenting with a physical exam and management of chronic conditions. He has a history of Multiple Sclerosis, diagnosed over 20 years ago, for which he receives biannual infusions at a specialized facility. He reports doing well overall, although he experiences neuropathy in his toes, a condition present since his MS diagnosis. Recently, his Prostate-Specific Antigen (PSA) levels have increased significantly over the past two years. He is currently on tamsulosin, prescribed by a general practitioner at the [place], to manage symptoms of Benign Prostatic Hyperplasia, including a weaker urinary stream and difficulty initiating urination. Preventative care measures include a scheduled colonoscopy for next month. Health Maintenance - Colonoscopy scheduled for next month Social History Review of Systems - Cardiovascular: Denies chest pain - Respiratory: Denies dyspnea - Gastrointestinal: Denies abdominal pain, blood in stool, constipation, diarrhea - Neurological: Reports neuropathy in toes Physical Exam General: Cooperative, healthy appearing, comfortable, no acute distress and well developed Orientation: Patient oriented x3 Limitations: No limitations Head: Normal to inspection Ears: Hearing grossly normal bilaterally Nose: Normal external nose present Face and sinus: Normal facial exam Eyes: Appearance normal, both eyes and all related structures Neck: Normal visual inspection and Yes full ROM Respiratory: Normal respiratory effort and able to speak in complete sentences. Clear to auscultation bilaterally Cardiovascular: Regular rate and rhythm. Normal S1 and S2 GI: Normal to inspection. Soft to palpation and nontender : Testicles without masses/lesions and no hernias appreciated Skin: No rashes or lesions noted Neuro: Patient oriented x3, reports neuropathies to his toes Extremities: Normal to inspection, positive patellar reflexes Results - Labs: Elevated PSA levels over the past two years Plan The patient will be referred to a urologist for further evaluation of the elevated PSA levels and management of Benign Prostatic Hyperplasia symptoms. He will [facility] For Multiple Sclerosis, the patient will maintain his biannual infusion schedule at the MS specialist facility. Preventative care includes a colonoscopy scheduled for next month to ensure comprehensive health maintenance. Discussion Notes I discussed with the patient the importance of following up with a urologist to address the elevated PSA levels and the symptoms of Benign Prostatic Hyperplasia. We also reviewed the continuation of his current medication regimen and the upcoming colonoscopy as part of his preventative care plan. Patient Instructions - Follow up with a urologist as scheduled. - Continue taking tamsulosin as prescribed. - Attend the scheduled colonoscopy next month. [facility] Medical History Asthma Multiple sclerosis Elevated cholesterol Surgical History Hx of discectomy History of mandibular surgery Hx of appendectomy Social History Household Members: Spouse Housing: House Patient Tobacco Use Status: Former Tobacco user Tobacco use type: Cigarette e-Cigarette/Vaping Use: Never Used service: Yes Current occupational status: retired Cognitive needs: No Hearing needs: Yes Vision needs: Yes Questionnaire PHQ-9 Over the last 2 weeks, how often have you been bothered by any of the following problems? 1. Little interest or pleasure in doing things: not at all 2. Feeling down, depressed, or hopeless: not at all 3. Trouble falling or staying asleep, or sleeping too much: not at all 4. Feeling tired or having little energy: not at all 5. Poor appetite or overeating: not at all 6. Feeling bad about yourself - or that you are a failure or have let yourself or your family down: not at all 7. Trouble concentrating on things, such as reading the newspaper or watching television: not at all 8. Moving or speaking so slowly that other people could have noticed. Or the opposite - being so fidgety or restless that you have been moving around a lot more than usual: not at all 9. Thoughts that you would be better off or of hurting yourself in some way: not at all Total score: 0 Depression Screening Interpretation: Negative Depression Screening Done: Yes 57291 - PHQ-9 Billing: Yes Source: Developed by Drs. Jared Arias, Germania Mace, Zane Trujillo and colleagues, with an educational sung from [employer]. Thrive Questionnaire Date Thrive assessed: 01/05/25 I am a: Patient What is your living situation today?: I have a steady place to live Within the past 12 months, did the food you bought not last and you didn't have the money to get more?: Never true Within the past 12 months, did you worry whether your food would run out before you got money to buy more?: Never true Do you have trouble paying for medicines?: No Do you have trouble getting transportation to medical appointments?: No Do you have trouble paying your heating and electricity bill?: No Do you have trouble taking care of your child, family member or friend?: No Do you have trouble with day-to-day activities such as bathing, preparing meals, shopping, managing finances, etc.?: No Are you currently unemployed and looking for a job?: No Are you interested in more education?: No Please select the resources that you would like help with: None Currently or been in a relationship where the following occur: No concerns reported THRIVE Score: 0 AUDIT C Alcohol Use Questionnaire (AUDIT-C) 1. How often do you have a drink containing alcohol?: 2-4 times a month 2. How many drinks containing alcohol do you have on a typical day when you are drinking?: 1 or 2 3. How often do you have six or more drinks on one occasion?: Never Total Score: 2 Score Reviewed/Action Taken: Yes ABEBE-7 AMB Questionnaire ABEBE-7 Date ABEBE - 7 assessed: 01/05/25 Feeling nervous, anxious, or on edge: 0 = Not at all Not being able to stop or control worryin = Not at all Worrying too much about different things: 0 = Not at all Trouble relaxin = Not at all Being so restless that it is hard to sit still: 0 = Not at all Becoming easily annoyed or irritable: 0 = Not at all Feeling afraid as if something awful might happen: 0 = Not at all Total ABEBE-7 score (0-4 normal; 5-9 mild; 10-14 moderate; 15-21 severe): 0 Source: Developed by Drs. Jared Arias, Germania Mace, Zane Trujillo and colleagues, with an educational sung from [employer]. ABEBE-7 Assessment Billing ABEBE-7 Assessment Tool: ABEBE-7 Assessment 23399 Physical exam (Primary Care) Vital Signs: Last Vital Signs Pulse 70 01/05/25 15:58 BP 110/70 01/05/25 15:58 Pulse Ox 98 01/05/25 15:58 BMI result Body Mass Index 28.0 Tobacco/Smoking Status: Tobacco use Status Tobacco use date assessed 01/05/25 01/05/25 16:03 Patient Tobacco Use Status Former Tobacco user 01/05/25 16:03 Tobacco use type Cigarette 01/05/25 16:03 e-Cigarette/Vaping Use Never Used 01/05/25 16:03 PHQ-9: PHQ-9 Score PHQ-9: Total score 0 01/05/25 16:10 Depression Screening Interpretation: Negative Thrive Assessment: Date of Thrive Assessment Date Thrive assessed 01/05/25 01/05/25 16:03 Currently or been in a relationship where the following occur: No concerns reported Coding Level of Care Code Est Pt Prev Care 40-64y(88790) Diagnoses Physical exam Z00.00 Elevated prostate specific antigen (PSA) R97.20 Rising PSA level R97.20 Additional Codes ABEBE-7 Assessment Billing - ABEBE-7 Assessment Tool: ABEBE-7 Assessment 28159 ([id number]) PHQ-9 - 69850 - PHQ-9 Billing: Yes ([id number]) Assessment & Plan Assessment & Plan (1) Physical exam: Code(s): Z00.00 - Encounter for general adult medical examination without abnormal findings Category: Medical (2) Elevated prostate specific antigen (PSA): Code(s): R97.20 - Elevated prostate specific antigen [PSA] Category: Medical (3) Rising PSA level: Code(s): R97.20 - Elevated prostate specific antigen [PSA] Category: Medical Plan . Orders: Orders Prostate Specific Antigen Scr 6 Months R97.20 - Elevated prostate specific antigen [PSA] Referrals Urology Referral R97.20 - Elevated prostate specific antigen [PSA]
--- OUTSIDE RECORDS SUMMARY | 2025-01-05 16:33 | XMS_ITS | Clinical Summary ---
Author Organization [facility] Address [address] [place] [address] Phone Care Team Providers Care Tip Stitcher Name Role Phone Keith Herring MD Primary [...] topic Medical Devices Not on file Insurance [employer] [facility] Member Subscriber Plan / Payer (Ef fective 2015-Present) Name:Dequan Pierre Relation to Subscriber:Self Name:DEQUAN PIERRE Payer ID:[id number] (NAIC) Group ID:[id number] Type:PPO Address: [address] [employer] [facility] [place] [address] [facility] Member Subscriber Plan / Payer (Ef fective 2015-Present) Name:Dequan Pierre Relation to Subscriber:Self Name:DEQUAN PIERRE Payer ID:[id number] (NAIC) Group ID:[id number] Type:PPO Address: [address] [facility] [place] [place] [address] [facility] Member Subscriber Plan / Payer (Ef fective 2015-Present) Name:Dequan Pierre Relation to Subscriber:Self Name:DEQUAN PIERRE Payer ID:[id number] (NAIC) Group ID:[id number] Type:PPO Address: [id number] [facility] [place] [place] [address] [facility] Member Subscriber Plan / Payer (Ef fective 2015-Present) Name:Dequan Pierre Relation to Subscriber:Self Name:DEQUAN PIERRE Payer ID:[id number] (NAIC) Group ID:[id number] Type:PPO Address: [address] [facility] Advance Directives For more information, please contact: [phone] (9AM - 5PM [facility], Friday-Friday) Documents on File Type Date Recorded Patient Activity Aide Expl anation Healthcare Proxy 04/24/2018 10:20 AM Care Teams Tip Stitcher Relationship Specialty Start Date End Date Keith Herring MD PCP - General Internal Medicine 12/29/17 Additional Source Comments The information contained in this document represents components of the legal health record. It is not the complete legal health record.[facility]
--- OUTSIDE RECORDS SUMMARY | 2025-01-05 16:33 | XMS_ITS | Patient Health Record ---
[facility] Address [address] [place] [address] Care Team Providers Care Portfolio Assistant Name Role Phone Vinay Clark Primary Care Provider Unav ailable Alessandra Johnson Unavailable [phone] Allergies No Known Allergies Reason For Referral Diagnosis 1 Pain in unspecified foot (M79.673) Referring Provider First Name Fe Mcmillan Referring Provider Last Name Lory Referring Provider Speciality Internal M edicine Referred Organization [facility] Jonathan Referred Provider Alessandra Johnson Referred Address [address] ,[place], [place],[address], Referred Provider Specialty Podiatry Referral Priority Routine [...] Status W/U Status Risk Notes Problem Neuropathy ([id number]) Neuropathy (G62.9) Active confirmed Vital Signs Blood pressure diastolic 78 mm Hg 05/10/2024 Height 5ft 8 in in 05/10/2024 Blood pressure systolic 126 mm Hg 05/10/2024 Weight 185 lbs 05/10/2024 BMI 28.13 kg/m2 05/10/2024 Encounters Encounter Location Date Provider Diagnosis [facility] [address] [place] [address] 05/10/2024 Alessandra Johnson Neuritis M79.2 ; Neuropathy G62.9 ; Left foot pain M79.672 ; Right foot pain M79.671 and Neurapraxia of left lower extremity, [facility] encounter [facility]56.[facility] [address] 03/17/2024 Alessandar Johnson Assessments Encounter Date Diagnosis (ICD Code) [...] Name:Alessandra Valdes doris, 05/09/2025 09:00:00 AM, [address] [place], [address], Insurance Providers Payer Name Payer Address Payer Phone Subscriber Number Group Number Insured Name Patient Relationship to Insured Coverage Start Date Coverage End Date [facility] [address] [place] [address] [id number] Dequan Pierre Self - patient is the insured Medical (General) History Medical History History ICD Code Anxiety asthma Depression Multiple sclerosis Numbness Mumps Chicken pox Surgical History Surgery Date(Month/Year) appendectomy 04/1978 broken jaw 09/1979
== END 2025-01-05 16:38 | disposition home or self-care (01) ==
LOC: HO.HMCC 15:54
PROVIDERS: PCP Nurse Practitioner Family; Visit Provider Nurse Practitioner Family
DX: Z00.00 Encounter for general adult medical examination without abnormal findings (principal); R97.20 Elevated prostate specific antigen [PSA]

== ENCOUNTER → 2025-01-05 15:54 | Outpatient (BNVA) | payer OTHER, SELFPAY | PROVIDERS: PCP Nurse Practitioner Family; Visit Provider Nurse Practitioner Family | DX: Z00.00 Encounter for general adult medical examination without abnormal findings (principal); R97.20 Elevated prostate specific antigen [PSA] | CPT/HCPCS: 96127 ==

== ENCOUNTER 2025-01-21 06:22 | Day surgery (SDC) | payer OTHER, SELFPAY ==
--- OUTSIDE RECORDS SUMMARY | 2024-08-12 05:30 | XMS_ITS | Encounter Summary ---
Author Name [facility] [place] Organization [facility] [place] Address [address] [place] [id number] Care Team Providers Care Heat Treat Puller Name Role Phone HEIDI KRAMER Primary Care Provider Abena healy Insurance Providers: All historical and current Section Date Range: From patient's date of to the date document was created. This section includes the names of all active insurance providers for the patient. Insurance Provider Type of Coverage Plan Name Start of Policy Coverage End of Policy Coverage Group Number Member ID Insurance Provider's Telephone Number Policy Salinas's Name Patient's Relationship to Policy Salinas [employer] DODA May 19, 2022 DODA [id number] GAUTAM MARCELO PATIENT [employer] PRESCRIPT ION RX May 19, 2022 THPRX [id number] GAUTAM MARCELO PATIENT [facility] POINT OF SERVICE POS 2021 [id number] [phone] GAUTAM MARCELO PATIENT [facility] T[facility] MAR 2021 [id number] GAUTAM MARCELO PATIENT [facility] PLAN [place] DRISCOLL E 2021 [id number] GAUTAM MARCELO PATIENT Selected Encounter This section includes the information on record at [place] for the Encounter. Date/Time Encounter Type Encounter Description Reason Provider Source Aug 12, 2024 09:30 AM THERAPEUTIC EXERCISES OCCUPATIONAL THERAPY ICD-10-CM M25.519 Pain in unspecified shoulder RUPINDER ALVARADO IHCain Encounter Template Text not used by [place] Assessments - Encounter Diagnoses This section includes the primary and secondary diagnoses documented for the Encounter. Date/Time Primary/Secondary Diagnosis Diagnosis Name Provider Source Aug 12, 2024 01:30 PM PRIMARY Pain in unspecified shoulder RUPINDER ALVARADO E [place] [facility] [place] [facility] Plan of Treatment: Future Appointments (+ 6 months) and Future Tests (+/- 45 days) The Plan of Treatment section includes future care activities for the patient from all [place] [facility]. This section includes future appointments and future orders which are active, pending or scheduled. Future Appointments This section includes appointments that were scheduled to occur 6 months from the date of the Encounter, up to a maximum of 20 appointments. The data comes from all [place] treatment facilities. Appointment Date/Time Appointment Type Appointme nt Facility Name Aug 19, 2024 10:00 AM AMBULATORY - REHAB MEDICIN E [facility] [place] [facility] Aug 26, 2024 09:30 AM AMBULATORY - REHAB MEDICIN E [facility] [place] [facility] Sep 14, 2024 08:00 AM AMBULATORY - REHAB MEDICIN E [facility] [place] [facility] Sep 14, 2024 09:00 AM AMBULATORY - MEDICINE [place] [facility] [place] [facility] October 15, 2024 03:00 PM AMBULATORY - MEDICINE [place] [facility] [place] [facility] Oct 20, 2024 10:15 AM AMBULATORY - NONE [place] [facility] [place] [facility] Dec 15, 2024 10:30 AM AMBULATORY - SURGERY [place] [facility] [place] [facility] Lab Results: +/- 30 days of the encounter This section includes the Chemistry and Hematology Lab Results on record with [place] for the patient. Radiology Reports and Pathology Reports are provided separately, in subsequent sections. Lab Results This section contains the Chemistry/Hematology Results that were resulted 30 days before or 30 daysafter the date of the Encounter. Date/Time Source Result Type Result - Unit Interpretation Reference Range Specimen Type Comment Sep 09, 2024 07:43 AM [place] [facility] [place] [facility] LYME SEROLOGY PANEL SERUM Specimen Type: SERUM Comment: The LYME SEROLOGY PANEL was performed using the FDA-approved Vinay LUC Borrelia burdorferi modified two-tier test system. This modified methodology uses a second EIA in place of a western immunoblot assay, which the FDA has determined is substantially equivalent to or better than standard two-tier testing using western blot. Supplemental testing with a second EIA meets CDC guidelines for Lyme disease testing. Performance characteristics of the panel were validated at the [facility]. Results are considered positive only if the initial screening EIA is positive or equivocal, and either or both supplemental EIAs (for IgM and IgG) are positive. Diagnosis of Lyme disease should not be based solely on laboratory results. Clinical and exposure history must be considered. Positive antibody results reflect prior immunologic exposure, and do not necessarily indicate active infection. False positive results are possible in patients with other spirochetal infections, infectious mononucleosis, and connective tissue disorders. Negative results do not exclude B. burgdorferi infection. Only 10-40% of patients with erythema migrans alone have detectable antibodies. False negative results are possible, if specimens are drawn too soon after infection before an antibody response. Antibody induction may be aborted by early antibiotic therapy. Results in immunosuppressed individuals should be interpreted with caution. If Lyme disease is strongly suspected, but antibody was not detected, a second specimen collected about 2-4 weeks after the first should be tested. This test is NOT for use in screening individuals without signs, symptoms or exposure history. Physicians should report all cases of Lyme disease to their state and local health departments, if applicable. Ordering Provider: HEIDI KRAMER Report Released Date/Time: Jul 20, 2024 12:52 PM Reporting Lab: [place] [employer] [address] [address] Performing Lab: [place] [employer] [facility] [employer] [address] [address] TIER 1 LYME SCREENING EIA Negative Negat harry LYME AB FINAL INTERPRETATION Negative Ne gative Sep 09, 2024 07:42 AM [place] [employer] [facility] [employer] [facility] LIVER FUNCTION SERUM Specimen Type: SERUM No comment entered. Ordering Provider: HEIDI KRAMER Report Released Date/Time: Sep 04, 2024 05:43 PM Reporting Lab: [place] [employer] [facility] [employer] [address] [address] Performing Lab: [facility] [address] [facility] [address] PROTEIN,TOTAL 6.5 g/dL 6.4-8.3 ALBUMIN 4.2 g/dL 3.2-4.6 ALKALINE PHOSPHATASE 54 U/L 40-150 AST 26 U/L 5-34 ALT 19 U/L 0-55 BILIRUBIN, TOTAL 0.7 mg/dL 0.2-1.2 Sep 09, 2024 07:42 AM [facility] BASIC METABOLIC PANEL (fasting) SERUM Specime n Type: SERUM No comment entered. Ordering Provider: HEIDI KRAMER Report Released Date/Time: Sep 04, 2024 05:43 PM Reporting Lab: [address] [address] Performing Lab: [address] [address] UREA NITROGEN 17 mg/dL 8-26 GLUCOSE 89 mg/dL 65-100 SODIUM 139 mmol/L 136-145 POTASSIUM 4.3 mmol/L 3.5-5.1 CHLORIDE 106 mmol/L 98-107 CO2 26 meq/L 23-31 CALCIUM 9.1 mg/dL 8.8-10 CREATININE, Serum 0.87 mg/dL 0.72-1.25 eGFR(CKD-EPI 2020) >90 mL/min >60 Sep 09, 2024 07:42 AM [facility] LIPID PANEL FASTING SERUM Specimen Type: SERU M No comment entered. Ordering Provider: HEIDI KRAMER Report Released Date/Time: Sep 04, 2024 05:43 PM Reporting Lab: [address] [address] Performing Lab: [address] [address] CHOLESTEROL 193 mg/dL TRIGLYCERIDE 78 mg/dL 0-150 LDL calculated 117 mg/dL 0-129 CHOL/HDL 3.2 HDL CHOLESTEROL 60 mg/dL >40 Sep 09, 2024 07:42 AM [facility] PSA SERUM Specimen Type: SERUM No comment entered. Ordering Provider: HEIDI KRAMER Report Released Date/Time: Sep 04, 2024 05:43 PM Reporting Lab: [place] [facility] [place] [facility] [address] [facility] [address] Performing Lab: [place] [facility] [place] [facility] [address] [facility] [address] PSA 2.7 ng/mL 0.0-4.0 Sep 09, 2024 07:42 AM [facility] TSH SERUM Specimen Type: SERUM No comment entered. Ordering Provider: HEIDI KRAMER Report Released Date/Time: Sep 04, 2024 05:43 PM Reporting Lab: [place] [facility] [place] [facility] [address] [facility] [address] Performing Lab: [place] [facility] [address] [address] TSH 0.93 u[IU]/mL 0.35-4.94 Sep 09, 2024 07:42 AM [facility] CBC AND DIFF (AUTO) BLOOD Specimen Type: BLOO D No comment entered. Ordering Provider: HEIDI KRAMER Report Released Date/Time: Sep 04, 2024 05:43 PM Reporting Lab: [place] [facility] [address] [facility] [address] Performing Lab: [place] [facility] [address] [address] WBC 4.79 10*3/uL 4.50-11.00 RBC 5.12 10*6/uL 4.23-5.66 HGB 15.2 g/dL 12.8-17 HCT 43.8 39.2-50.4 MCV 85.5 fL 82-99 MCHC 34.7 g/dL 30.8-35.1 PLT 209 10*3/uL 140-360 MPV 9.5 fL 9.2-12.4 RDW-CV 12.3 12.0-16.0 MONO, ABS 0.56 10*3/uL 0.30-1.10 MCH 29.7 pg 26.2-32.6 NEUT % 61.3 43.7-75.8 LYMPH % 22.5 14.0-42.3 MONO % 11.7 5.1-13.7 EOS % 3.3 0.4-6.8 BASO % 0.8 0.1-2.0 NEUT, ABS 2.93 10*3/uL 2.20-7.60 LYMPH, ABS 1.08 10*3/uL 1.00-3.20 EOS, ABS 0.16 10*3/uL 0.03-0.44 BASO, ABS 0.04 10*3/uL 0.01-0.13 IMMATURE GRAN % 0.4 0.0-0.7 IMMATURE GRAN, ABS 0.02 10*3/uL 0.00-0.0 6 NRBC % 0.0 0.0-0.0 NRBC, ABS 0.00 10*3/uL 0.00-0.00 Sep 09, 2024 07:42 AM [facility] MICROSCOPIC AUTOMATED, URINE URINE Specimen T ype: URINE Comment: If Glucose = >500 and Ketones are positive, please alert the Physician. Ordering Provider: HEIDI KRAMER Report Released Date/Time: Sep 04, 2024 05:43 PM Reporting Lab: [facility] [email or web address] [address] Performing Lab: [address] [address] UA WBC 6-10 /[HPF] H 0-5 UA MUCUS FEW /[LPF] Trace UA RBC 0-2 /[HPF] 0-3 Sep 09, 2024 07:42 AM [facility] URINALYSIS CLEAN CATCH URINE Specimen Type: U RINE Comment: If Glucose = >500 and Ketones are positive, please alert the Physician. Ordering Provider: HEIDI KRAMER Report Released Date/Time: Sep 04, 2024 05:43 PM Reporting Lab: [facility] [email or web address] [address] Performing Lab: [address] [address] UA COLOR Yellow Yellow UA APPEARANCE Clear Clear UA GLUCOSE Normal mg/dL Negative UA KETONES NEGATIVE mg/dL Negative UA BLOOD NEGATIVE mg/dL Negative UA PROTEIN 10 mg/dL Negative UA NITRITE NEGATIVE mg/dL Negative UA BILIRUBIN NEGATIVE mg/dL Negative UA SPECIFIC GRAVITY 1.032 H 1.016-1.022 UA pH 5.5 5.0-9.0 UA UROBILINOGEN Normal mg/dL <2.0 UA LEUKOCYTE SMALL Negative Jul 19, 2024 10:51 AM [facility] DEE SCREEN/TITER SERUM Specimen Type: SERUM No comment entered. Ordering Provider: HEIDI KRAMER Report Released Date/Time: Jul 19, 2024 09:57 AM Reporting Lab: [facility] [place] [facility] [address] [facility] [address] Performing Lab: [facility]ENTERTRN [facility] [address] [facility] [address] DEE SCREEN NEG NEG <1:40 Jul 19, 2024 10:51 AM [facility]ENTERUSEW[facility]ALTH C REACTIVE PROTEIN HS (WROX) SERUM Specimen T ype: SERUM Comment: Reference range changed on 11/06/10 [facility] reference ranges for ages >17 years: hsCRP in mg/L Risk According to AHA/CDC Guidelines <1.0 Lower relative cardiovascular risk. 1.0-3.0 Average cardiovascular risk. 3.1-10.0 Higher cardiovascular risk. Consider retesting in two weeks to exclude a benign transient elevation in the baseline CRP value secondary to infection or inflammation. >10.0 Persistent elevation, upon retesting, may be associated with infection and inflammation. Ordering Provider: HEIDI KRAMER Report Released Date/Time: Jul 19, 2024 09:57 AM Reporting Lab: [facility]ITALN [facility] [address] [facility] [address] Performing Lab: [facility] HOSPITALN [facility] [address] [facility] [address] C REACTIVE PROTEIN HS (WROX) 0.99 mg/L S ee eval. Jul 19, 2024 10:51 AM [facility]ENTERUSEW[facility]ALTH RHEUMATOID FACTOR SERUM Specimen Type: SERUM No comment entered. Ordering Provider: HEIDI KRAMER Report Released Date/Time: Jul 19, 2024 09:57 AM Reporting Lab: [facility]ITALR[facility]ENTERTRN [facility]ETS [facility] [address] [facility] [address] Performing Lab: [facility]ITALR[facility]OM[facility] HOSPITALN [facility] [address] [facility] [address] RHEUMATOID FACTOR <13 0-15 Jul 19, 2024 10:51 AM [facility] ANTI-CCP PLASMA Specimen Type: PLASM A Comment: Anti-cyclic citrullinated peptide (anti-CCP), IgG antibodies are present in about 69-83% of patients with Rheumatoid Arthritis (RA) and have specificities of 93-95%. These autoantibodies may be present in the preclinical phase of disease, are associated with future RA development, and may predict radiographic joint destruction. Ordering Provider: HEIDI KRAMER Report Released Date/Time: Jul 19, 2024 09:57 AM Reporting Lab: [facility]ITALR[facility]ENTERTRN [facility]ETS [facility] [address] [facility] [address] Performing Lab: [facility]ITALR[facility]OM[facility] HOSPITALN [facility]ENTERUSETS [address] [address] ANTI-CCP Negative Negative Jul 19, 2024 10:51 AM [facility] SED RATE, AUTOMATED BLOOD Specimen Type: BLOO D No comment entered. Ordering Provider: HEIDI KRAMER Report Released Date/Time: Jul 19, 2024 09:57 AM Reporting Lab: [facility]ITALRL TRN [facility]ETS [facility] [address] [facility] [address] Performing Lab: [facility]ITALR[facility]ENTERTRN [facility]ENTERUSETS [address] [address] SED RATE, AUTOMATED 5 mm/h 0-20 Jul 19, 2024 10:51 AM [facility]ITALRTH[facility] HOSPITALN [facility] CPK SERUM Specimen Type: SERUM No comment entered. Ordering Provider: HEIDI KRAMER Report Released Date/Time: Jul 19, 2024 09:57 AM Reporting Lab: [facility]ITALR[facility]ENTERTRN [facility]ETS [facility] [address] [facility] [address] Performing Lab: [facility]ITALR[facility]ENTERTRN [facility]ENTERUSETS [address] [address] CPK 126 U/L 30-200 Jul 19, 2024 10:51 AM [facility]ITALN [facility] CALCIUM SERUM Specimen Type: SERUM No comment entered. Ordering Provider: HEIDI KRAMER Report Released Date/Time: Jul 19, 2024 09:57 AM Reporting Lab: [facility]ITALR[facility]ENTERTRN [place] [address] [place] [address] Performing Lab: [facility] [address] [facility] [address] CALCIUM 9.9 mg/dL 8.5-10.2 Jul 19, 2024 10:51 AM [facility] URIC ACID SERUM Specimen Type: SERUM No comment entered. Ordering Provider: HEIDI KRAMER Report Released Date/Time: Jul 19, 2024 09:57 AM Reporting Lab: [facility] [address] [facility] [address] Performing Lab: [facility] [address] [facility] [address] URIC ACID 3.7 mg/dL 3.5-7.2 Jul 19, 2024 10:51 AM [facility] CBC AND DIFF (AUTO) BLOOD Specimen Type: BLOO D No comment entered. Ordering Provider: HEIDI KRAMER Report Released Date/Time: Jul 19, 2024 09:57 AM Reporting Lab: [facility] [address] [facility] [address] Performing Lab: [address] [address] WBC 4.80 10*3/uL 4.50-11.00 RBC 5.22 10*6/uL 4.23-5.66 HGB 15.1 g/dL 12.8-17 HCT 45.0 39.2-50.4 MCV 86.2 fL 82-99 MCHC 33.6 g/dL 30.8-35.1 PLT 214 10*3/uL 140-360 RDW-CV 12.3 12.0-16.0 MONO, ABS 0.53 10*3/uL 0.30-1.10 MCH 28.9 pg 26.2-32.6 NEUT % 66.1 43.7-75.8 LYMPH % 19.6 14.0-42.3 MONO % 11.0 5.1-13.7 EOS % 2.3 0.4-6.8 BASO % 0.8 0.1-2.0 NEUT, ABS 3.17 10*3/uL 2.20-7.60 LYMPH, ABS 0.94 10*3/uL L 1.00-3.20 EOS, ABS 0.11 10*3/uL 0.03-0.44 BASO, ABS 0.04 10*3/uL 0.01-0.13 IMMATURE GRAN % 0.2 0.0-0.7 IMMATURE GRAN, ABS 0.01 10*3/uL 0.00-0.0 6 NRBC % 0.0 0.0-0.0 NRBC, ABS 0.00 10*3/uL 0.00-0.00 Jul 19, 2024 10:51 AM [facility] LYME SEROLOGY PANEL SERUM Specimen Type: SERU M Comment: The LYME SEROLOGY PANEL was performed using the FDA-approved SysClass LUC Borrelia burdorferi modified two-tier test system. This modified methodology uses a second EIA in place of a western immunoblot assay, which the FDA has determined is substantially equivalent to or better than standard two-tier testing using western blot. Supplemental testing with a second EIA meets CDC guidelines for Lyme disease testing. Performance characteristics of the panel were validated at the [place] [facility]. Results are considered positive only if the initial screening EIA is positive or equivocal, and either or both supplemental EIAs (for IgM and IgG) are positive. Diagnosis of Lyme disease should not be based solely on laboratory results. Clinical and exposure history must be considered. Positive antibody results reflect prior immunologic exposure, and do not necessarily indicate active infection. False positive results are possible in patients with other spirochetal infections, infectious mononucleosis, and connective tissue disorders. Negative results do not exclude B. burgdorferi infection. Only 10-40% of patients with erythema migrans alone have detectable antibodies. False negative results are possible, if specimens are drawn too soon after infection before an antibody response. Antibody induction may be aborted by early antibiotic therapy. Results in immunosuppressed individuals should be interpreted with caution. If Lyme disease is strongly suspected, but antibody was not detected, a second specimen collected about 2-4 weeks after the first should be tested. This test is NOT for use in screening individuals without signs, symptoms or exposure history. Physicians should report all cases of Lyme disease to their state and local health departments, if applicable. Ordering Provider: HEIDI KRAMER Report Released Date/Time: Jul 20, 2024 02:30 PM Reporting Lab: [facility] [address] [facility] [address] Performing Lab: [place] [facility] [place] [facility] [address] [facility] [address] TIER 1 LYME SCREENING EIA Negative Negat harry LYME AB FINAL INTERPRETATION Negative Ne gative Social History: Smoking Status (Most current) and Tobacco Use (All prior to encounter date) This section includes the most current, and the historical, smoking and tobacco- related health factors from the [place] facility where the Encounter took place. Current Smoking Status This section includes the most current smoking, or tobacco-related health factor, from the [place] facility where the Encounter took place. Date/Time Current Smoking Status Comment Facil ity September 19, 2023 09:30 AM VA-TOBACCO QUIT 15 YRS OR MORE [facility] Tobacco Use History This section includes a history of the smoking, or tobacco-related health factors, that were collected on or before the date of the Encounter. The data comes from the [place] facility where the Encounter took place. Date/Time Smoking Status/Tobacco Use Comment F acility September 19, 2023 09:30 AM VA-TOBACCO QUIT 15 YRS OR MORE [place] [facility] [place] [facility] Sep 11, 2022 10:30 AM VA-TOBACCO FORMER USER [place] [facility] [facility] Sep 11, 2022 10:30 AM VA-TOBACCO QUIT 5 TO < 15 YRS [facility] [place] [facility] Sep 04, 2021 09:00 AM VA-TOBACCO FORMER USER [place] [facility] [facility] Sep 04, 2021 09:00 AM VA-TOBACCO QUIT 5 TO < 15 YRS [facility] [place] [facility] Jul 20, 2020 08:30 AM VA-TOBACCO FORMER USER [place] [facility] [facility] Jul 20, 2020 08:30 AM VA-TOBACCO QUIT 5 TO < 15 YRS [place] [facility] [facility] Dec 05, 2017 11:14 AM QUIT TOBACCO USE > 7 YEARS AGO [place] [facility] [facility] Radiology Reports: +/- 30 days of the encounter Radiology Reports For cases when an order for radiology services may have been completed prior to the date of the Encounter, the report list includes the Radiology Reports that were completed up to 30 days before dateof the Encounter. For cases when an order for radiology services may have been completed after the date of the Encounter, the report list also includes the Radiology Reports that were completed up to30 days after date of the Encounter. The data comes from all [place] treatment facilities. Date/Time Radiology Report Provider Source Jul 19, 2024 10:02 AM SHOULDER,COMPLETE(RIGHT): MIREYA MARCELO [id number] -1960 M Exm Date: JUL 19, 2024@10:02 Req Phys: HEIDI KRAMER Loc: [facility] PACT 2 (Req'g Loc) Img Loc: [facility] 1 Service: [place] [address] (Case 32 COMPLETE) SHOULDER,COMPLETE(RIGHT) (RAD Detailed) CPT:49472 Proc Modifiers : RIGHT Reason for Study: look for lesion Clinical History: Report Status: Verified Date Reported: JUL 19, 2024 Date Verified: JUL 19, 2024 [employer] Professor E-Sig: Report: Right shoulder Clinical history: look for lesion Comparison: No priors available. Findings: No fracture or dislocation. Mild degenerative changes at the acromioclavicular joint. Impression: No acute bony injury. Obtain MRI if clinical concern of marrow replacing lesion. Obtain CT if clinical concern of destructive cortical lesion. READING PHYSICIAN: Bert Monge M.D. -[phone] 07/19/2024 15:07 [facility] National Teleradiology Program [phone] (For Medical Practitioner Use Only) Attention Patients / Veterans: If you have questions or concerns about these test results, please contact your ordering provider or primary care team. Primary Diagnostic Code: NO ALERT REQUIRED Primary Interpreting Staff: RADIOLOGY,OUTSIDE SERVICE, Staff Physician / RADIOLOGY,OUTSIDE SERVICE [facility] Jul 19, 2024 10:02 AM SHOULDER,COMPLETE(LEFT): MIREYA MARCELO [id number] -1960 M Exm Date: JUL 19, 2024@10:02 Req Phys: HEIDI KRAMER Loc: [facility] PACT 2 (Req'g Loc) Img Loc: [facility] 1 Service: [place] [address] (Case 33 COMPLETE) SHOULDER,COMPLETE(LEFT) (RAD Detailed) CPT:[id number] Proc Modifiers : LEFT Reason for Study: look for lesion Clinical History: Report Status: Verified Date Reported: JUL 19, 2024 Date Verified: JUL 19, 2024 [employer] Professor E-Sig: Report: Left shoulder Clinical history: look for lesion Comparison: 07/23/2019 Findings: Remote fracture deformity of the distal clavicle. No acute fracture or dislocation. Mild degenerative changes at the acromioclavicular joint. Impression: No acute bony injury. Obtain MRI if clinical concern of marrow replacing lesion. Obtain CT if clinical concern of destructive cortical lesion. READING PHYSICIAN: Bert Monge M.D. -[id number] 07/19/2024 15:08 [facility] National Teleradiology Program [phone] (For Medical Practitioner Use Only) Attention Patients / Veterans: If you have questions or concerns about these test results, please contact your ordering provider or primary care team. Primary Diagnostic Code: NO ALERT REQUIRED Primary Interpreting Staff: RADIOLOGY,OUTSIDE SERVICE, Staff Physician / RADIOLOGY,OUTSIDE SERVICE [facility] Encounter Notes: All associated encounter notes This section contains the clinical notes associated to the Encounter. Date/Time Encounter Note(s) Provider Source Aug 12, 2024 09:18 AM OCCUPATIONAL THERAPY NOTE: LOCAL TITLE: OCCUPATIONAL THERAPY STANDARD TITLE: OCCUPATIONAL THERAPY NOTE DATE OF NOTE: AUG 12, 2024@09:18 ENTRY DATE: AUG 12, 2024@09:18:09 AUTHOR: RUPINDER ALVARADO COSIGNER: URGENCY: STATUS: COMPLETED Initial Evaluation date: Jul Progress Note Date: Treatment #: 2 Treatment time: 30 minutes Diagnosis: Pain in unspecified Shoulder(ICD-10-CM M25.519) Provider: Nima HERNANDEZ Treatment Precautions: Patient identified by full name and date of SUBJECTIVE: Pt reports that the shoulder has been good. He only experienced 2 days of pain since his last visit. Pain Level: 0/10 OBJECTIVE: THERAPEUTIC EXERCISE: *UBE 2' forward, 2' backward 2.0 *pulleys into flexion w/ 10 second hold on L, 1x10 *wall slides into flexion, 1x10 *pec stretch in doorway, 30 second hold x2 ADDED: *shoulder rows w/ blue band, 2x10 (issued blue band) *shoulder extensions w/ blue band, 2x10 Access Code: [email or web address] URL: [email or web address] Date: 08/03/2024 Prepared by: THOMAS [facility] Exercises - Seated Shoulder Flexion AAROM with Bhavna Behind - 1 x daily - 7 x weekly - 3 sets - 10 reps - 10 hold - Shoulder Flexion Wall Slide with Towel - 1 x daily - 7 x weekly - 3 sets - 10 reps - Doorway Pec Stretch at 60 Elevation - 1 x daily - 7 x weekly - 3 sets - 3 reps - 30 hold MINUTES: 17 MANUAL THERAPY: *mobilization/FDM to anterior shoulder musculature, seated MINUTES: 9 THERAPEUTIC DYNAMIC ACTIVITIES: MINUTES: NEUROMUSCULAR EDUCATION: MINUTES: OTHER: MINUTES: MODALITIES: MINUTES: [] Contraindication screen completed prior to modality [] Skin intact pre/post SELF CARE/EDUCATION: MINUTES: Patient education was provided for all aspects of care during this clinical encounter. ASSESSMENT: pt tolerated tx well this date. he is able to perform all TE w/ good form. required verbal and visual prompting to perform pec stretch properly. reported feeling good following. added rows and extensions. some tightness and decreased ttp noted throughout anterior shoulder following tx. pt demonstrated full AROM of L shoulder following tx, denying painful arc. PLAN: continue w/ OT POC; modify tx as needed. pt is in agreement w/ this POC. /[place]/ Rupinder Alvarado, MS OTR/Radha, CHT Occupational Therapist Signed: 08/12/2024 13:30 RUPINDER ALVARADO [facility]
--- OUTSIDE RECORDS SUMMARY | 2024-10-20 06:20 | XMS_ITS ---
Author Organization [facility] Address [address] [place] [address] Care Team Providers Care Director Of Research And Development Name Role Phone Nima NEWMAN, Keith Primary Care Provider Unavailab Teja Ribeiro Jr [phone] REASON FOR VISIT screening colon Encounters Encounter Location Date Provider Diagnosis [facility] [address] [place] [address] 10/20/2024 Teja Johnson Jr Plan Of Treatment Next Appt Details Provider Name:Teja louis Jr, 01/21/2025 07:30:00 AM, [address] [place] [address] , [place], [place], [phone], Progress Notes * SERINA MARCELOOB:1960 (64 yo M)Acc No.[id number]:10/20/2024 Progress Notes Patient: MIREYA WALKER Provider: José Johnson MD :1960 A ge:64 Y S ex:Male Date:10/20/2024 [facility] Pcp:Keith Herring MD Subjective: * Chief Complaints: [...] 10/20/2024 Generated for Ronald daniel/Tiffani/Edwardoitting on: 0 12/13/2024 02:08 PM EDT
--- OUTSIDE RECORDS SUMMARY | 2024-12-13 14:09 | XMS_ITS | Patient Health Record ---
Author Organization [facility] Address [address] [place] [address] Care Team Providers Care Carpenter Helper Name Role Phone Vinay Clark Primary Care Provider Unav ailable Alessandra Johnson Unavailable [phone] Allergies No Known Allergies Reason For Referral Diagnosis 1 Pain in unspecified foot (M79.673) Referring Provider First Name Fe Mcmillan Referring Provider Last Name Lory Referring Provider Speciality Internal M edicine Referred Organization [facility] Referred Provider Alessandra Johnson Referred Address [address] ,[place], [place],[address], Referred Provider Specialty Podiatry Referral Priority Routine Medications Medication SIG (Take, Route, Frequency, Duration) Notes Start Date End Date Status Vitamin C Active Triamcinolone & Emollient Active Albuterol Active LORazepam Active Loratadine Active Montelukast Sodium A ctive Gabapentin Active Magnesium Active Ocrevus Active Vitamin D3 Active Wellbutrin Active centrum silver Activ e Provigil Active Calcium Active Fluticasone Propionate HFA Active Social History Tobacco Use: Social History Observation Description Date Details (start date - stop date) Former Smoker NA - NA Alcohol Screen Question Answer Notes Did you have a drink containing alcohol in the p ast year? Yes Points 0 Interpretation Negative Tobacco use other than smoking: Question Answer Notes Are you an other tobacco user? No Tobacco Control (Standard) Question Answer Notes Tobacco use: Former smoker Additional Findings: Tobacco non-user Ex-cigaret te smoker Problems Problem Type SNOMED Code ICD Code Onset Dates Problem Status W/U Status Risk Notes Problem Neuropathy (899937335) Neuropathy (G62.9) Active confirmed Vital Signs Blood pressure diastolic 78 mm Hg 05/10/2024 Height 5ft 8 in in 05/10/2024 Blood pressure systolic 126 mm Hg 05/10/2024 Weight 185 lbs 05/10/2024 BMI 28.13 kg/m2 05/10/2024 Encounters Encounter Location Date Provider Diagnosis [facility] [address] [place] [address] 05/10/2024 Alessandra Johnson Neuritis M79.2 ; Neuropathy G62.9 ; Left foot pain M79.672 ; Right foot pain M79.671 and Neurapraxia of left lower extremity, initial encounter 956.[address] [address] 03/17/2024 Alessandra Johnson Assessments Encounter Date Diagnosis (ICD Code) Assessment Notes Treatment Notes Treatment Clinical Notes Section Notes 05/10/2024 Neuritis (ICD-10 - M79.2) 05/10/2024 Neuropathy (ICD-10 - G62.9) 05/10/2024 Left foot pain (ICD-10 - M79.672) 05/10/2024 Right foot pain (ICD-10 - M79.671) 05/10/2024 Neurapraxia of left lower extremity, initial encounter (ICD9-CM - 956.9) Plan Of Treatment Next Appt Details Provider Name:Alessandra Valdes doris, 05/09/2025 09:00:00 AM, [address] [place], [address], Insurance Providers Payer Name Payer Address Payer Phone Subscriber Number Group Number Insured Name Patient Relationship to Insured Coverage Start Date Coverage End Date [facility] Plan [address] [place] [address] [id number] Dequan Pierre Self - patient is the insured Medical (General) History Medical History History ICD Code Anxiety asthma Depression Multiple sclerosis Numbness Mumps Chicken pox Surgical History Surgery Date(Month/Year) appendectomy 04/1978 broken jaw 09/1979
--- OUTSIDE RECORDS SUMMARY | 2024-12-13 14:09 | XMS_ITS | Clinical Summary ---
Author Organization [facility] Address [address] [place] [address] Phone Care Team Providers Care Motorized Squad Captain Name Role Phone Keith Herring MD Primary Care Provider + Allergies Active Allergy Reactions Criticality Noted Date Comments Mold Extracts 03/28/2017 Medications gabapentin (NEURONTIN) 600 MG tablet Take 600 mg by mouth daily. Active buPROPion (WELLBUTRIN XL) 300 MG ER 24 hr tablet Take 300 mg by mouth daily. Active sertraline (ZOLOFT) 50 MG tablet Take 100 mg by mouth daily. Active natalizumab (TYSABRI) 300 mg/15 mL injection Inject into the vein every 30 (thirty) days. Active b complex vitamins capsule Take 1 capsule by mouth daily. Active ASCORBATE CALCIUM (VITAMIN C ORAL) Take by mouth. Activ e CHOLECALCIFERO L, VITAMIN D3, (VITAMIN D3 ORAL) Take by mouth. Activ e CALCIUM CARBONATE (CALCIUM 500 ORAL) Take 1,200 mg by mouth daily. Active modafinil (PROVIGIL) 200 MG tablet Take 200 mg by mouth daily as needed. Active LORazepam (ATIVAN) 0.5 MG tabletIndicati ons:1-3 tablets daily Take 0.5 mg by mouth daily as needed. Active traZODone (DESYREL) 100 MG tabletIndicati ons:1/2-1 tablet daily Take 100 mg by mouth nightly. Active albuterol 2.5 mg/0.5 mL nebulizer solution Take 2.5 mg by nebulization 2 (two) times a day. Active albuterol sulfate (PROAIR HFA INHL)Indicatio ns:patient reported 110 mg Inhale 2 puffs into the lungs daily. Active fluticasone (FLOVENT HFA) 110 mcg/actuation inhaler Inhale 1 puff into the lungs 2 (two) times a day as needed. Active loratadine (CLARITIN) 10 mg tablet Take 10 mg by mouth daily. Active FLUTICASONE PROPIONATE, BULK, MISCIndication s:1 spray each nostril daily 50 mcg by Miscellaneous route. Active triamcinolone acetonide 0.1 % cream Apply topically 2 (two) times a day. Active triamcinolone acetonide 0.1 % ointment Apply topically 2 (two) times a day. Active baclofen (LIORESAL) 10 MG tablet Take 10 mg by mouth daily. Active magnesium oxide 400 mg magnesium Tab Take 1 tablet by mouth daily. Active folic acid/multivit- min/lutein (CENTRUM SILVER ORAL) Take 1 tablet by mouth daily. Active montelukast (SINGULAIR) 10 mg tablet Take 1 tablet (10 mg total) by mouth nightly at bedtime. 30 tablet 5 9 Active Active Problems Problem Noted Date Diagnosed Date Allergic rhinitis 11/28/2018 Assessment & Plan (06/22/2019 10:00 AM EST): Continue Flonase and Singulair. Assessment & Plan (11/28/2018 4:42 PM EDT): Continue Flonase. Singulair should also help this. Moderate persistent asthma without complication 04/13/2018 Assessment & Plan (06/22/2019 9:59 AM EST): Exhaled nitric oxide level is 15. Despite his daily albuterol use I think it is okay for him to hold off on any further inhaled corticosteroid given this. Would you Singulair. I will see him again on a PRN basis. Thank you for this consultation please feel free to call me if you have any questions. Assessment & Plan (11/28/2018 4:42 PM EDT): PFTs are normal. Recommend starting Singulair. Assessment & Plan (04/13/2018 4:08 PM EST): We will check full pulmonary function test. Will add singular to current regimen. Family History Medical History Relation Comments Coronary artery disease Father Hypertension Father Leukemia Mother Relation Status Comments Father Mother Social History Tobacco Use Types Packs/Day Years Used Date Smoking Tobacco: Former Smokeless Tobacco: Never Education Answer Date Recorded Are you interested in more education? Not on leanne e 09/13/2022 Are you concerned about learning? Not on file 09/13/2022 No 09/13/2022 No 09/13/2022 Digital Access Answer Date Recorded No 10/12/2022 No 10/12/2022 No 10/12/2022 Reliable internet access at home? Not on file 10/12/2022 Device with a working camera? Not on file Sex and Gender Information Value Date Recorded Sex Assigned at Not on file Legal Sex Male 10:34 PM EDT Gender Identity Not on file Sexual Orientation Not on file Last Filed Vital Signs Vital Sign Reading Time Taken Comments Blood Pressure 108/68 06/22/2019 9:28 AM EST Pulse 94 06/22/2019 9:28 AM EST Temperature - - Respiratory Rate - - Oxygen Saturation 96% 06/22/2019 9:28 AM EST Inhaled Oxygen Concentration - - Weight 84.4 kg (186 lb) 06/22/2019 9:28 AM EST Height 172.7 cm (5' 8 ) 03/28/2017 9:08 AM EST Body Mass Index 28.28 03/28/2017 9:08 AM EST Plan of Treatment Health Maintenance Due Date Last Done Comments LIPID PANEL 1961 DEPRESSION SCREENING 1973 SMOKING Hx and SMOKELESS TOBACCO SCREENING 1974 HEPATITIS C SCREENING 1979 HIV ONE-TIME SCREENING (18-6 5 YEARS) 1979 PNEUMOCOCCAL VACCINES (50+ years) (1 of 2 - PCV) 1980 COLOGUARD 2006 COLONOSCOPY 2006 COLORECTAL CANCER SCREENING 2006 FIT TEST 2006 FOBT 2006 SIGMOIDOSCOPY 2006 VIRTUAL COLONOSCOPY 2006 COVID-19 VACCINE (2 - Modern a risk series) 08/09/2020 07/12/2020 RSV VACCINE (1 - Risk 60-74 years 1-dose series) 2021 Adult Td,Tdap Booster 12/18/2027 12/17/2017 ZOSTER VACCINES Completed 09/27/2018, 07/02/2018 HEPATITIS A VACCINES Aged Out No long er eligible based on patient's age to complete this topic HIB VACCINES Aged Out No longer eligi ble based on patient's age to complete this topic MENINGOCOCCAL VACCINES (ACWY) Aged Out No longer eligible based on patient's age to complete this topic MENINGOCOCCAL VACCINES (B) Aged Out N o longer eligible based on patient's age to complete this topic Medical Devices Not on file Insurance [employer] [facility] Member Subscriber Plan / Payer (Ef fective 2015-Present) Name:Dequan Pierre Relation to Subscriber:Self Name:DEQUAN PIERRE Payer ID:[id number] (NAIC) Group ID:[id number] Type:PPO Address: [id number] [employer] [facility] [address] [facility] Member Subscriber Plan / Payer (Ef fective 2015-Present) Name:Dequan Pierre Relation to Subscriber:Self Name:DEQUAN PIERRE Payer ID:[id number] (NAIC) Group ID:[id number] Type:PPO Address: [id number] [facility] [place] [address] [facility] Member Subscriber Plan / Payer (Ef fective 2015-Present) Name:Dequan Pierre Relation to Subscriber:Self Name:DEQUAN PIERRE Payer ID:[id number] (NAIC) Group ID:[id number] Type:PPO Address: [id number] [facility] [place] [address] [facility] Member Subscriber Plan / Payer (Ef fective 2015-Present) Name:Dequan Pierre Relation to Subscriber:Self Name:DEQUAN PIERRE Payer ID:[id number] (NAIC) Group ID:[id number] Type:PPO Address: [id number] [facility] Advance Directives For more information, please contact: [phone] (9AM - 5PM [facility], Friday-Friday) Documents on File Type Date Recorded Patient Orthotics Technician Expl anation Healthcare Proxy 04/24/2018 10:20 AM Care Teams Motorized Squad Captain Relationship Specialty Start Date End Date Keith Herring MD PCP - General Internal Medicine 12/29/17 Additional Source Comments The information contained in this document represents components of the legal health record. It is not the complete legal health record.[facility]
[2025-01-19 11:55] VITALS: BMI 27.9
--- NOTE | 2025-01-20 08:43 | HO.ANESPROP2 ---
Documented by User: Ping Jacinto NP 01/20/25 08:43 HPI - Anesthesia Eval Consult details Narrative: 64yo M for Colonoscopy MS with IV tx Q6 months PMFSH Active Problems Active Problems: All Active Problems Rising PSA level (Acute) Elevated prostate specific antigen (PSA) (Acute) Foot pain (Acute) Dyslipidemia (Acute) Infected wound (Acute) Wound of left lower extremity (Acute) Wound, open, leg (Acute) Maxillary sinusitis (Acute) Screening for prostate cancer (Acute) Physical exam (Acute) Sinusitis (Acute) Past Medical History Medical History Seasonal asthma Asthma Multiple sclerosis Elevated cholesterol Family History Family history of problems with anesthesia: No Surgical History Surgical History Hx of colonoscopy (08/2021) History of mandibular surgery Hx of appendectomy History of Problems with Anesthesia: No Social History Social History Household Members: Spouse Housing: House Patient Tobacco Use Status: Former Tobacco user Tobacco use type: Cigarette e-Cigarette/Vaping Use: Never Used service: Yes Current occupational status: retired Cognitive needs: No Hearing needs: Yes Vision needs: Yes Meds Allergies Allergy/AdvReac Type Severity Reaction Status Date / Time seasonal/ enviromental Allergy Intermediate Runny Nose Uncoded 01/05/25 16:33 Home Medications ?Medication ?Instructions ?Recorded ?Confirmed ?Last Taken ?Type albuterol sulfate 90 mcg/actuation 0 mcg inhalation 07/23/21 01/05/25 Unknown History aerosol inhaler (ProAir HFA) bupropion HCl 300 mg 24 hr tablet, 300 mg PO QAM 07/23/21 01/19/25 Unknown History extended release (Wellbutrin XL) fluticasone propionate 50 spray intranasal 07/23/21 01/05/25 Unknown History mcg/actuation nasal spray,suspension gabapentin 600 mg tablet 600 mg PO BEDTIME 07/23/21 01/21/25 Unknown History montelukast 10 mg tablet 10 mg PO DAILY 07/23/21 01/21/25 Unknown History sertraline 100 mg tablet 100 mg PO DAILY 07/23/21 01/21/25 Unknown History triamcinolone acetonide 0.1 % 1 appl topical BID-TID 07/23/21 01/21/25 Unknown History topical cream lorazepam 0.5 mg tablet 0.5 mg PO BID PRN Anxiety 08/22/21 01/21/25 Unknown History ocrelizumab 30 mg/mL intravenous 600 mg IV [id number] 01/01/24 01/21/25 Unknown History solution (Ocrevus) tamsulosin 0.4 mg capsule 0.4 mg PO DAILY 01/05/25 01/21/25 Unknown History ascorbic acid (vitamin C) 1,000 mg 1,000 mg PO DAILY 01/19/25 01/19/25 Unknown History tablet (Vitamin C) cholecalciferol (vitamin D3) 50 50 mcg PO DAILY 01/19/25 01/19/25 Unknown History mcg (2,000 unit) capsule (Vitamin D3) Exam Height,Weight and Vital Signs: Height 5 ft 9 in Weight 85.729 kg Assessment and Plan Assessment Anesthesia Assessment: Chart Reviewed Final Anesthetic Review Family History of Problems with Anesthesia: No History of Problems with Anesthesia: No Documented by User: Dawna Haywood MD 01/21/25 07:27 [facility] Past Medical History Medical History Seasonal asthma Asthma Multiple sclerosis Elevated cholesterol Surgical History Surgical History Hx of colonoscopy (08/2021) History of mandibular surgery Hx of appendectomy Social History Social History Household Members: Spouse Housing: House Patient Tobacco Use Status: Former Tobacco user Tobacco use type: Cigarette e-Cigarette/Vaping Use: Never Used service: Yes Current occupational status: retired Cognitive needs: No Hearing needs: Yes Vision needs: Yes Meds Allergies Allergy/AdvReac Type Severity Reaction Status Date / Time seasonal/ enviromental Allergy Intermediate Runny Nose Uncoded 01/05/25 16:33 Home Medications ?Medication ?Instructions ?Recorded ?Confirmed ?Last Taken ?Type albuterol sulfate 90 mcg/actuation 0 mcg inhalation 07/23/21 01/05/25 Unknown History aerosol inhaler (ProAir HFA) bupropion HCl 300 mg 24 hr tablet, 300 mg PO QAM 07/23/21 01/19/25 Unknown History extended release (Wellbutrin XL) fluticasone propionate 50 spray intranasal 07/23/21 01/05/25 Unknown History mcg/actuation nasal spray,suspension gabapentin 600 mg tablet 600 mg PO BEDTIME 07/23/21 01/21/25 Unknown History montelukast 10 mg tablet 10 mg PO DAILY 07/23/21 01/21/25 Unknown History sertraline 100 mg tablet 100 mg PO DAILY 07/23/21 01/21/25 Unknown History triamcinolone acetonide 0.1 % 1 appl topical BID-TID 07/23/21 01/21/25 Unknown History topical cream lorazepam 0.5 mg tablet 0.5 mg PO BID PRN Anxiety 08/22/21 01/21/25 Unknown History ocrelizumab 30 mg/mL intravenous 600 mg IV [id number] 01/01/24 01/21/25 Unknown History solution (Ocrevus) tamsulosin 0.4 mg capsule 0.4 mg PO DAILY 01/05/25 01/21/25 Unknown History ascorbic acid (vitamin C) 1,000 mg 1,000 mg PO DAILY 01/19/25 01/19/25 Unknown History tablet (Vitamin C) cholecalciferol (vitamin D3) 50 50 mcg PO DAILY 01/19/25 01/19/25 Unknown History mcg (2,000 unit) capsule (Vitamin D3) Exam Airway Mallampati Class: III TM Dist: >3cm Neck ROM: Full Loose/Missing/Broken Teeth: No Heart: RRR Lungs: CTA Assessment and Plan Assessment Anesthesia Assessment: Anesthesia Plan Discussed Final Anesthetic Review NPO: Yes ASA Class: II Final Preanesthetic Review: Meds/Allgs Chart Reviewed, Consent Obtained/Reviewed and Anes Risks/Benef Reviewed Patient Risk: Low Procedure Risk: Low Anesthetic Plan Anesthetic Plan: MAC: Disposition: Standard PACU
[2025-01-21 06:53] VITALS: BMI 26.9
[2025-01-21 07:00] VITALS: BP 110/69; PULSE 60; RESP 16; TEMP 36.2; O2SAT 94
[2025-01-21] MEDS: Lactated Ringers 1,000 ML 100 ML IVCONT (07:12)
--- NOTE | 2025-01-21 07:24 | MHC.SHP ---
Pre-Procedural Eval Section A - 24 Hr Update-Section A only Date of Service: 01/21/25 Section B - Complete if H&P > 30 days Chief Complaint: Personal history of adenomatous and serrated colon Details of Present Illness: see H&P no changes Relevant Family History (Specify if Yes): No Relevant Social History: None Present Medications: see Short Stay Collaborative assessment Medical History: No relevant PMH History of Previous Operations: No relevant previous surgery Allergies: Allergies Allergy/AdvReac Type Severity Reaction Status Date / Time seasonal/ enviromental Allergy Intermediate Runny Nose Uncoded 01/05/25 16:33 Review of Systems Sugical H&P ROS: Negative: Constitution, Cardiovascular, Respiratory, Neurological, Psychiatric, Hem-Onc, Allergic/Immunologic, Gastrointestinal, Genitourinary, Musculoskeletal, Integumentary, Endocrine and Eyes/Ears/Nose/Throat Exam Surgical H&P Exam: Normal: HEENT, Normal: Heart, Normal: Lungs, Normal: Extremities, Normal: Abdomen, Normal: Skin and Normal: Neurological Plan Diagnosis/Plan: Unchanged I have reviewed the history and physical and performed a pertinent physical examination on my patient. No changes have occurred unless specified. Time Spent With Patient Time: Total time managing care of this patient today ____ minutes.
[2025-01-21 08:02] VITALS: BP 100/55; PULSE 51; RESP 18; TEMP 36.4; O2SAT 98
[2025-01-21 08:17] VITALS: BP 107/69; PULSE 59; RESP 18; TEMP 36.4; O2SAT 98
--- NOTE | 2025-01-21 08:19 | OP_ITS ---
DATE OF SERVICE: 01/21/2025 SURGEON: Teja Johnson MD INDICATIONS: Colon cancer screening and prior history of adenomatous colon polyps. PREOPERATIVE DIAGNOSIS: POSTOPERATIVE DIAGNOSIS: PROCEDURE PERFORMED: Colonoscopy to the terminal ileum with biopsy and snare polypectomy. ESTIMATED BLOOD LOSS: COMPLICATIONS: ANESTHESIA: Monitored anesthesia care. ASSISTANTS: SPECIMENS: DESCRIPTION OF PROCEDURE: A history and physical was performed. The risks and benefits of the procedure were explained to the patient. Informed consent was obtained. The patient was placed in the left lateral decubitus position. A digital rectal exam was performed and was found to be normal. The Olympus pediatric video colonoscope was introduced into the rectum and advanced to the cecum. The cecum was identified by transillumination, palpation, and identification of ileocecal valve. Examination was performed. The scope was removed. He tolerated the procedure well and was taken to recovery area in stable condition. FINDINGS: The terminal ileum was examined and appeared normal. The visualized colonic mucosa was normal. Two polyps were identified. The 1st was located in the right colon, measuring less than 5 mm. This was removed with biopsy forceps. The 2nd was located at 15 cm from the anal verge and was removed with a cold snare. This measured approximately 7 mm. The polyp was recovered by suction. No other polyps were identified. The quality of the prep was good. Retroflexed examination showed internal hemorrhoids. IMPRESSION: Colon polyps. RECOMMENDATION: Followup the biopsy results. MD ERIK Demarco/YARY / [id number]
== END 2025-01-21 09:01 | disposition home or self-care (01) ==
PROVIDERS: PCP Internal Medicine; Visit Provider Internal Medicine Gastroenterology
PROC: 0DJD8ZZ Inspection of Lower Intestinal Tract, Via Natural or Artificial Opening Endoscopic (ICD-10-PCS; CPT 45378; principal; 2025-01-21 07:30)
DX: Z12.11 Encounter for screening for malignant neoplasm of colon (principal); Z86.0101 Personal history of adenomatous and serrated colon polyps; D12.2 Benign neoplasm of ascending colon; D12.7 Benign neoplasm of rectosigmoid junction; G35 Multiple sclerosis; E78.00 Pure hypercholesterolemia, unspecified; J45.909 Unspecified asthma, uncomplicated; Z79.51 Long term (current) use of inhaled steroids; Z79.899 Other long term (current) drug therapy; Z87.81 Personal history of (healed) traumatic fracture; Z98.890 Other specified postprocedural states; Z87.891 Personal history of nicotine dependence
CPT/HCPCS: 45385; 45380; 88305; J1596; J2003; J2405; J2704

== ENCOUNTER 2025-03-23 09:34 | Outpatient (AMB) | payer OTHER, SELFPAY ==
--- OUTSIDE RECORDS SUMMARY | 2024-10-20 05:20 | XMS_ITS ---
Author Organization [facility] Address [address] [place] [address] Care Team Providers Care Quality Control Inspector Name Role Phone Nima NEWMAN, Keith Primary Care Provider Teja Quan Jr [phone] REASON FOR VISIT screening colon Encounters Encounter Location Date Provider Diagnosis [facility] [address] [place] [address] 10/20/2024 Teja Johnson Jr Plan Of Treatment No Information Progress Notes * SERINA MARCELOOB:1960 (64 yo M)Acc No.[id number]:10/20/2024 Progress Notes Patient: MIREYA WALKER Provider: José Johnson MD :1960 A ge:64 Y S ex:Male Date:10/20/2024 Address: [facility] Pcp:Keith Herring MD Subjective: * Chief Complaints: * 1 . Screening colon. * Medical History: Objective: * Vitals: Assessment: Plan: * Treatment: * * The named appointment provid er may or may not be the originator of this progress note, and it is not deemed complete until electronically signed by the appointment provider. Sign off status: Pending * Provider: José Johnson MD Date: 0 10/20/2024 Generated for Ronald daniel/Tiffani/eTransmitting on: 1 05/23/2024 10:43 AM EST
--- OUTSIDE RECORDS SUMMARY | 2025-01-21 02:30 | XMS_ITS ---
Author Organization [facility] Address [address] [place] [address] Care Team Providers Care Pediatrician/Medical Doctor Name Role Phone Nima NEWMAN, Keith Primary Care Provider Teja Quan Jr [phone] REASON FOR VISIT screening,hx polyps Encounters Encounter Location Date Provider Diagnosis [facility] Outpatient [address] [place], [place] [id number] 01/21/2025 Teja Johnson Jr Plan Of Treatment No Information Progress Notes * SERINA MARCELOOB:1960 (64 yo M)Acc No.[id number]:01/21/2025 COLON WITH MAC Patient: MIREYA WALKER Provider: José Johnson MD :1960 A ge:64 Y S ex:Male Date:01/21/2025 [facility] Pcp:Keith Herring MD Subjective: * Chief Complaints: * 1 . Screening,hx polyps. * Medical History: Objective: * Vitals: Assessment: Plan: * Treatment: * * The named appointment provid er may or may not be the originator of this progress note, and it is not deemed complete until electronically signed by the appointment provider. Sign off status: Pending * Provider: José Johnson MD Date: 0 01/21/2025 Generated for Ronald daniel/Tiffani/eTransmitting on: 1 05/23/2024 10:43 AM EST
--- NOTE | 2025-03-23 09:38 | MHC.OFFVIS ---
Intake Visit Reasons: Rising PSA Intake Note: Patient is present for RISING PSA Urology Medication:TAMSULSOIN Antibiotic Allergy:NONE Blood Thinner:NONE TIODAY'S PVR: 361ML'S Make Up Operator Required: No Allergies seasonal/ enviromental Allergy (Intermediate, Uncoded 03/23/25 10:07) Runny Nose Medication List - Last Reconciled 03/23/25 by MONTY Fleming- albuterol sulfate 90 mcg/actuation (ProAir HFA) 0 mcg inhalation ascorbic acid (vitamin C) (Vitamin C) 1,000 mg PO DAILY bupropion HCl XL (Wellbutrin XL) 300 mg PO QAM cholecalciferol (vitamin D3) (Vitamin D3) 50 mcg PO DAILY fluticasone propionate 50 mcg/actuation sprays intranasal gabapentin 600 mg PO BEDTIME lorazepam 0.5 mg PO BID PRN montelukast 10 mg PO DAILY ocrelizumab (Ocrevus) 600 mg IV [id number] pravastatin 80 mg PO BEDTIME 90 days sertraline 100 mg PO DAILY tamsulosin 0.4 mg PO DAILY triamcinolone acetonide 0.1% 1 appl topical BID-TID HPI Comments Details: Dequan is a very pleasant 64-year-old male patient of Dr. Gaona. He has a past medical history of hyperlipidemia, MS, and asthma. He presents to the office today as a new patient for a rising PSA. In discussion with the patient today he reports having followed up with his PCP at which time his PSA was noted to have risen since previous PSA and recommendations were made for urology referral for further assessment evaluation. He also reports a longstanding history [facility]. In office urinalysis results reviewed with the patient today. PVR 361 mL. We did discussed incomplete bladder emptying and further treatment options and risks and benefits of these treatment options. In review of patient's chart it appears PSAs are as follows: PSA 10/08 2.0, 01/10 3.2 He reports having had ROSINA with PCP and was noted to be within normal limits. We did discussed potential causes of slight increase in PSA over the last 2 years. When asked he denies any bothersome urinary issues. He denies urinary urgency, urinary frequency, incontinence, nocturia, hematuria, dysuria, foul smelling urine, changes to urinary stream, flank pain, fever, and or chills.He is happy with his current voiding parameters on Flomax. All questions were answered. He otherwise offers no other issues or concerns at this time. [facility] Medical History Seasonal asthma Asthma Multiple sclerosis Elevated cholesterol Surgical History Hx of colonoscopy (08/2021) History of mandibular surgery Hx of appendectomy Social History Household Members: Spouse Housing: House Patient Tobacco Use Status: Former Tobacco user Tobacco use type: Cigarette e-Cigarette/Vaping Use: Never Used service: Yes Current occupational status: retired Cognitive needs: No Hearing needs: Yes Vision needs: Yes Review of Systems Const All systems reviewed & are unremarkable except as noted in HPI and below Physical Exam Const General: cooperative, healthy appearing, comfortable, no acute distress, well developed, alert and awake Orientation/consciousness: patient oriented x3 Limitations: no limitations HEENT Head: Yes normal to inspection, Yes normocephalic and Yes atraumatic Ears: hearing grossly normal bilaterally Eyes General: appearance normal, both eyes and all related structures Neck Neck: Yes normal visual inspection and Yes trachea midline Chest Chest palpation & inspection: normal inspection of the chest Resp Effort & Inspection: normal respiratory effort and able to speak in complete sentences Cardio Rate: regular rate GI Inspection: Yes normal to inspection General: Yes no CVA tenderness Back/Spine/Pelvis Back: no CVA tenderness Skin General skin exam: no rashes or lesions noted Neuro General: patient oriented x3 Extrem General: Yes normal to inspection Psych Appearance: grossly normal and well kempt Mental Status: mental status grossly normal Speech and movement: Normal speech and movement present and Clear speech present Affect: normal affect Attitude: cooperative Thought process: Normal thought process present Thought content: Normal thought content present Insight: Fair insight present (Psych) Judgement: Fair judgement present (Psych) Office Procedures Post Void Residual Post Residual Void Post Void Residual (PVR): 361 [id number] Void Residual by ultrasound Results AMB Urinalysis, Automated UA Leukoctes 0 Veronica/uL Last Edit by JARVIS Benton on 03/23/25 10:07 UA Nitrite Negative Last Edit by JARVIS Benton on 03/23/25 10:07 UA Urobilinogen 0.2 mg/dL Last Edit [facility] on 03/23/25 10:07 UA Protein 15 mg/dL Last Edit by Monika Leach [facility] on 03/23/25 10:07 UA pH 6.0 Last Edit by Monika Leach [facility] on 03/23/25 10:07 UA Blood 0 Mario/uL Last Edit by Monika Leach [facility] on 03/23/25 10:07 UA Specific Magnolia 1.025 Last Edit by Monika Leach [facility] on 03/23/25 10:07 UA Ketone Negative Last Edit by Monika Leach [facility] on 03/23/25 10:07 UA Bilirubin 0 mg/dL Last Edit by Monika Leach [facility] on 03/23/25 10:07 UA Glucose 0 mg/dL Last Edit by Monika Leach [facility] on 03/23/25 10:07 Results Reviewed Results Reviewed: Laboratory Last Values Urine pH (Auto) 6.0 03/23/25 10:06 Specific Magnolia (Auto) 1.025 03/23/25 10:06 Urine Protein (Auto) 15 mg/dL 03/23/25 10:06 Glucose (UA)(Auto) 0 mg/dL 03/23/25 10:06 Urine Ketones (Auto) Negative 03/23/25 10:06 Urine Blood (Auto) 0 Mario/uL 03/23/25 10:06 Urine Nitrite (Auto) Negative 03/23/25 10:06 Urine Bilirubin (Auto) 0 mg/dL 03/23/25 10:06 Urine Urobilinogen (Auto) 0.2 mg/dL 03/23/25 10:06 Leukocyte Esterase (Auto) 0 Veronica/uL 03/23/25 10:06 Assessment & Plan Assessment & Plan (1) Rising PSA level: Code(s): R97.20 - Elevated prostate specific antigen [PSA] Category: Medical (2) Incomplete bladder emptying: Code(s): R33.9 - Retention of urine, unspecified Category: Medical Plan In office urinalysis results with the patient today; as noted above. PVR 361 mL. Continue Flomax. Most recent PSA results reviewed with the patient today; as noted above. We discussed obtaining retroperitoneal ultrasound for further assessment evaluation. We also discussed redraw of PSA with no sex the night before, no caffeine morning of, and no heavy lifting 1-2 days prior. We did discuss potential causes and affects of incomplete bladder emptying; we did discussed further treatment options and risks and benefits of these treatment options. He reports be happy with current voiding parameters on Flomax. He currently denies any bothersome urinary issues. We did discussed potential causes; of slight rise in PSA as well as further treatment options and risks and benefits of these treatment options. All questions were answered. Follow-up in 1-3 months with lab, imaging, and PVR; or sooner with any issues, concerns, and or questions. Orders: Orders AMB Urinalysis Automated Today Z13.9 - Encounter for screening, unspecified Prostate Specific Antigen Today R97.20 - Elevated prostate specific antigen [PSA] US retroperitoneal comp Today R33.9 - Retention of urine, unspecified Patient Instructions: The patient had an opportunity to ask questions regarding the treatment plan. All questions were answered. Physical exam, labs, and imaging were discussed and reviewed in detail. As well as risks, benefits, and discussion of treatment choices. No major barriers to understanding were identified. The patient expressed understanding and agreement with the above treatment plan. The patient was made aware they should contact our office by phone for worsening of their current condition, the appearance of new symptoms, or with any questions or concerns. Compliance is encouraged with any medications and follow up testing that is ordered. It is a privilege to be allowed the opportunity to participate in? your urological care.? Again, if you have any questions or concerns If you have any questions or concerns please do not hesitate to contact me. The office is [phone]. This note is constructed using voice recognition software. While every effort has been made to ensure accuracy ripening room attendant errors may have been included. Yours sincerely, ZOË Fleming Coding Level of Care Code New Pt Level 3 (10915) Diagnoses Rising PSA level R97.20 Incomplete bladder emptying R33.9 CPT Codes Post Residual Void - PVR CPT Code: 20563-Ymvm Void Residual by ultrasound ([id number])
--- OUTSIDE RECORDS SUMMARY | 2025-03-23 10:43 | XMS_ITS | Patient Health Record ---
Author Organization [facility] Address [address] [facility] [address] [place] [id number] Care Team Providers Care Life Educator Name Role Phone Nima NEWMAN, Keith Primary Care Provider Unavailab Teja Ribeiro Jr Unavailable Allergies No Known Allergies Results Component Value Reference Range Notes Pathology Reviewed date:01/26/2025 03:15:38 PM Interpretation: Performing Lab:[facility], [address] [place] [phone] Notes/Report: Reason For Referral Referring Provider First Name Keith Referring Provider Last Name Nima Referring Provider Speciality Internal M edicine Referred Organization [facility] Referred Provider Teja Johnson Jr Referred Address [address] [place] [address], ite [address] [place] [phone], Referred Provider Specialty Gastroentero logy Referral Priority Routine Medications Medication SIG (Take, Route, Frequency, Duration) Notes Start Date End Date Status Ocrevus 300 MG/10ML as directed Intraven ous 6 month infusion Active Calcium 200 MG 2 tablets Orally daily Active Vitamin D3 2000 UNIT 2 capsules Orally daily Active Vitamin C 1000 MG 1 tablet Orally Once a day Active Vitamin B Complex Orally Ac tive Gabapentin 600mg 1 tablet Orally qd Active Montelukast Sodium 10 MG 1 tablet Orally Once a day Active Albuterol Active Pravastatin Sodium 40 MG 1 tablet Orally Once a day Active LORazepam 0.5 MG 1 tablet as needed O rally Twice a day Active Wellbutrin XL 300 MG 1 tablet in the mor carmina Orally Once a day Active Allergy Med otc Active Immunizations Vaccine Route Administration Date Status Comme nts Influenza Unknown 03/19/2021 Administered Problems Problem Type SNOMED Code ICD Code Onset Dates Problem Status W/U Status Risk Notes Problem Colon cancer screening (042962959) Colon cancer screening (Z12.11) Active confirmed Problem Gastro-esophage al reflux disease without esophagitis (213465860) Gastro-esophageal reflux disease without esophagitis (K21.9) Active confirmed Problem Pre-procedure evaluation check (614958805) Encounter for other preprocedural examination (Z01.818) Active confirmed Problem Dysphagia (73563135) Other dysphagia (R13.19) Active confirmed Problem Throat clearing (30144775) Throat clearing (R68.89) Active confirmed Problem Personal history of adenomatous and serrated colon polyps (Z86.0101) Active confirmed Vital Signs Blood pressure diastolic 77 mm Hg 10/28/2024 Height 69 in 10/28/2024 Blood pressure systolic 111 mm Hg 10/28/2024 Weight 189 lbs 10/28/2024 BMI 27.91 kg/m2 10/28/2024 Encounters Encounter Location Date Provider Diagnosis [facility] Outpatient [address] [place] [id number] 01/21/2025 Teja Johnson Jr [facility] [address] [place] [phone] 10/28/2024 Teja Johnson Jr Colon cancer screening Z12.11 ; Encounter for other preprocedural examination Z01.818 and Personal history of adenomatous and serrated colon polyps Z86.0101 [facility] [address] [place] [phone] 07/26/2024 Teja Johnson Jr [facility] [address] [place] [phone] 01/26/2025 Teja Johnson Jr Assessments Encounter Date Diagnosis (ICD Code) Assessment Notes Treatment Notes Treatment Clinical Notes Section Notes 10/28/2024 Colon cancer screening (ICD-10 - Z12.11) We discussed colonoscopy today. We discussed risks and benefits of the procedure today. This will be scheduled at his convenience. He will use a 2-day prep to ensure adequate examination. 10/28/2024 Encounter for other preprocedural examination (ICD-10 - Z01.818) We discussed colonoscopy today. We discussed risks and benefits of the procedure today. This will be scheduled at his convenience. He will use a 2-day prep to ensure adequate examination. 10/28/2024 Personal history of adenomatous and serrated colon polyps (ICD-10 - Z86.0101) We discussed colonoscopy today. We discussed risks and benefits of the procedure today. This will be scheduled at his convenience. He will use a 2-day prep to ensure adequate examination. Plan Of Treatment Future Test Test Name Order Date COLONOSCOPY 06/05/2011 COLONOSCOPY 07/04/2021 COLONOSCOPY 10/28/2024 Insurance Providers Payer Name Payer Address Payer Phone Subscriber Number Group Number Insured Name Patient Relationship to Insured Coverage Start Date Coverage End Date [facility] [employer] [address] [place] [id number] MIREYA MARCELO Self - patient is the insured Medical (General) History Medical History History ICD Code elevated cholesterol multiple sclerosis jaw fracture fractured clavicle seasonal asthma Surgical History Surgery Date(Month/Year) discectomy broken jaw appendectomy
--- OUTSIDE RECORDS SUMMARY | 2025-03-23 10:43 | XMS_ITS | Clinical Summary ---
Author Organization [facility] Address [address] [place] [address] Phone Care Team Providers Care Enthone Solder Stripper Name Role Phone Keith Herring MD Primary [...] HEPATITIS C SCREENING 1979 HIV ONE-TIME SCREENING (18-65 YEARS) 1979 PNEUMOCOCCAL VACCINES (50+ years) (1 of 2 - PCV) 1980 COLOGUARD 2006 COLONOSCOPY 2006 COLORECTAL CANCER SCREENING 2006 FIT TEST 2006 FOBT 2006 SIGMOIDOSCOPY 2006 VIRTUAL COLONOSCOPY 2006 RSV VACCINE (1 - Risk 50-74 years 1-dose series) 2011 COVID-19 VACCINE (2 - Moderna risk series) 08/09/2020 07/12/2020 INFLUENZA VACCINE (#1) 2024 0, 02/06/2018, 03/19/2016, Additional history exists Adult Td,Tdap Booster 12/18/2027 12/17/2017 ZOSTER VACCINES [...] topic Medical Devices Not on file Insurance [facility] Member Subscriber Plan / Payer (Ef fective 2015-Present) Name:Dequan Pierre Relation to Subscriber:Self Name:DEQUAN PIERRE Payer ID:[id number] (NAIC) Group ID:[id number] Type:PPO Address: [address] [facility] Member Subscriber Plan / Payer (Ef fective 2015-Present) Name:Dequan Pierre Relation to Subscriber:Self Name:DEQUAN PIERRE Payer ID:[id number] (NAIC) Group ID:[id number] Type:PPO Address: [address] [facility] Member Subscriber Plan / Payer ( fective 2015-Present) Name:Dequan Pierre Relation to Subscriber:Self Name:DEQUAN PIERRE Payer ID:[id number] ([facility]) Group ID:[id number] Type:PPO Address: [id number] [facility] Member Subscriber Plan / Payer ( fective 2015-Present) Name:Dequan Pierre Relation to Subscriber:Self Name:DEQUAN PIERRE Payer ID:[id number] (NAIC) Group ID:[id number] Type:PPO Address: [id number] [facility] Member Subscriber Plan / Payer ( fective 2015-Present) Name:Dequan Pierre Relation to Subscriber:Self Name:DEQUAN PIERRE Payer ID:[id number] ([facility]) Group ID:[id number] Type:PPO Address: [address] [facility] Member Subscriber Plan / Payer ( fective 2015-Present) Name:Dequan Pierre Relation to Subscriber:Self Name:DEQUAN PIERRE Payer ID:[id number] (NAIC) Group ID:[id number] Type:PPO Address: [address] [facility] Member Subscriber Plan / Payer ( fective 2015-Present) Name:Dequan Pierre Relation to Subscriber:Self Name:DEQUAN PIERRE Payer ID:[id number] ([facility]) Group ID:[id number] Type:PPO Address: [address] [facility] Member Subscriber Plan / Payer ( fective 2015-Present) Name:Dequan Pierre Relation to Subscriber:Self Name:DEQUAN PIERRE Payer ID:[id number] (NAIC) Group ID:[id number] Type:PPO Address: [address] Advance Directives For more information, please contact: [phone] (9AM - 5PM [facility], Friday-Friday) Documents on File Type Date Recorded Patient Retail Support Specialist Expl anation Healthcare Proxy 04/24/2018 10:20 AM Care Teams Enthone Solder Stripper Relationship Specialty Start Date End Date Keith Herring MD PCP - General Internal Medicine 12/29/17 Additional Source Comments The information contained in this document represents components of the legal health record. It is not the complete legal health record.[facility]
--- OUTSIDE RECORDS SUMMARY | 2025-03-23 10:44 | XMS_ITS | Patient Health Record ---
[facility] Address [address] [place] [address] Care Team Providers Care Oncology Physician Assistant Name Role Phone Vinay Clark Primary Care Provider Unav ailable Alessandra Johnson Unavailable [phone] Allergies No Known Allergies Reason For Referral Diagnosis 1 Pain in unspecified foot (M79.673) Referring Provider First Name Fe Mcmillan Referring Provider Last Name Lory Referring Provider Speciality Internal M edicine Referred Organization [facility] [place] Referred Provider Alessandra Johnson Referred Address [address] ,[place], [place],[address], Referred Provider Specialty Podiatry Referral Priority Routine [...] Status W/U Status Risk Notes Problem Neuropathy (500841197) Neuropathy (G62.9) Active confirmed Vital Signs Blood pressure diastolic 78 mm Hg 05/10/2024 Height 5ft 8 in in 05/10/2024 Blood pressure systolic 126 mm Hg 05/10/2024 Weight 185 lbs 05/10/2024 BMI 28.13 kg/m2 05/10/2024 Encounters Encounter Location Date Provider Diagnosis [facility] [address] [place] [address] 05/10/2024 Alessandra Johnson Neuritis M79.2 ; Neuropathy G62.9 ; Left foot pain M79.672 ; Right foot pain M79.671 and Neurapraxia of left lower extremity, initial encounter 956.9 Assessments Encounter Date Diagnosis (ICD Code) Assessment [...] Name:Alessandra Valdes doris, 05/09/2025 09:00:00 AM, [address] [place], [address], Insurance Providers Payer Name Payer Address Payer Phone Subscriber Number Group Number Insured Name Patient Relationship to Insured Coverage Start Date Coverage End Date [facility] [address] [place] [id number] Dequan Pierre Self - patient is the insured Medical (General) History Medical History History ICD Code Anxiety asthma Depression Multiple sclerosis Numbness Mumps Chicken pox Surgical History Surgery Date(Month/Year) appendectomy 04/1978 broken jaw 09/1979
== END 2025-03-23 10:15 | disposition home or self-care (01) ==
LOC: HO.HUSH 09:34
PROVIDERS: PCP Internal Medicine; Visit Provider Nurse Practitioner Family
DX: R97.20 Elevated prostate specific antigen [PSA] (principal); R33.9 Retention of urine, unspecified; Z13.9 Encounter for screening, unspecified
CPT/HCPCS: 99203

== ENCOUNTER → 2025-03-23 09:34 | Outpatient (BNVA) | payer OTHER, SELFPAY | PROVIDERS: PCP Internal Medicine; Visit Provider Nurse Practitioner Family | DX: R33.9 Retention of urine, unspecified (principal); R97.20 Elevated prostate specific antigen [PSA] | CPT/HCPCS: 51798; 81003; 99202 ==

== ENCOUNTER 2025-04-01 12:53 | Emergency (ER) | payer OTHER, SELFPAY ==
[2025-04-01 13:04] VITALS: BP 121/67; PULSE 57; O2SAT 98
[2025-04-01 13:07] VITALS: BP 99/52; PULSE 50; RESP 16; TEMP 36.4; O2SAT 93; BMI 30.2
--- NOTE | 2025-04-01 13:14 | PC.NURSE ---
Pt roomed to ayala bed VSS NAD no dizziness. DSG D&I on glenn- no active bleeding.
--- NOTE | 2025-04-01 13:43 | ED.WOUNDLAC ---
HPI - Wound/Laceration General Chief Complaint: Wound/Laceration Stated Complaint: LAC LT HAND FINGER Time Seen by Provider: 04/01/25 13:43 Source: patient Mode of arrival: ambulatory Limitations: no limitations History of Present Illness ED Provider: HPI narrative: 64-year-old male presenting with left index finger laceration tetanus up-to-date 2 weeks ago, he also had a vagal episode this is happened to him in the past, he started becoming sweaty, states that some point he was essentially unresponsive, denies chest pain palpitations or shortness of breath at this time. Related Data Home Medications ?Medication ?Instructions ?Recorded ?Confirmed albuterol sulfate 90 mcg/actuation 0 mcg inhalation 07/23/21 03/23/25 aerosol inhaler (ProAir HFA) bupropion HCl 300 mg 24 hr tablet, 300 mg PO QAM 07/23/21 03/23/25 extended release (Wellbutrin XL) fluticasone propionate 50 spray intranasal 07/23/21 03/23/25 mcg/actuation nasal spray,suspension gabapentin 600 mg tablet 600 mg PO BEDTIME 07/23/21 03/23/25 montelukast 10 mg tablet 10 mg PO DAILY 07/23/21 03/23/25 sertraline 100 mg tablet 100 mg PO DAILY 07/23/21 03/23/25 triamcinolone acetonide 0.1 % 1 appl topical BID-TID 07/23/21 03/23/25 topical cream lorazepam 0.5 mg tablet 0.5 mg PO BID PRN Anxiety 08/22/21 03/23/25 ocrelizumab 30 mg/mL intravenous 600 mg IV [id number] 01/01/24 03/23/25 solution (Ocrevus) tamsulosin 0.4 mg capsule 0.4 mg PO DAILY 01/05/25 03/23/25 ascorbic acid (vitamin C) 1,000 mg 1,000 mg PO DAILY 01/19/25 03/23/25 tablet (Vitamin C) cholecalciferol (vitamin D3) 50 50 mcg PO DAILY 01/19/25 03/23/25 mcg (2,000 unit) capsule (Vitamin D3) Previous Rx's ?Medication ?Instructions ?Recorded pravastatin 80 mg tablet 80 mg PO BEDTIME 90 days #90 tabs 12/04/24 Allergies Allergy/AdvReac Type Severity Reaction Status Date / Time seasonal/ enviromental Allergy Intermediate Runny Nose Uncoded 04/01/25 13:09 Review of Systems Constitutional: Constitutional: Reports as per [facility] Past Medical History Medical History (Reviewed 03/23/25 @ 10:[address] [facility] [place]) Seasonal asthma Asthma Multiple sclerosis Elevated cholesterol Surgical History Hx of colonoscopy (08/2021) History of mandibular surgery Hx of appendectomy Social History Social History Household Members: Spouse Housing: House Patient Tobacco Use Status: Former Tobacco user Tobacco use type: Cigarette e-Cigarette/Vaping Use: Never Used Advance Directives: Yes Advance Directives Information Provided: Yes Advance Directives on File: No service: Yes Current occupational status: retired Cognitive needs: No Hearing needs: Yes Vision needs: Yes Physical Exam Exam: Exam: General: Appears of stated age ? CV: RRR, no obvious murmurs appreciated ? Resp: ?No wheezing rales rhonchi no stridor moving air well ? Abd: ?Bowel sounds are present, no tenderness no rebound no rigidity ? MSK: FROM, strength 5/5 all extremities ? Skin: 1 cm laceration left index finger, FDS/ FDP intact radial ulnar pulses +2 ? Neuro: ?Alert and oriented x3, moving upper and lower extremities symmetrically, no obvious facial asymmetry noted, cranial nerves 2-12 intact Vital Signs: Vital Signs: Last Vital Signs Temp 97.5 F 04/01/25 13:07 Pulse 66 04/01/25 13:48 Resp 16 04/01/25 13:07 BP 106/58 L 04/01/25 13:48 Pulse Ox 93 04/01/25 13:07 O2 Del Method Room Air 04/01/25 13:07 BMI result Body Mass Index 30.2 Medical Decision Making Medical Decision Making MDM Narrative: 2:00 PM 04/01/2025 (Dr. David Crandall): tetanus up-to-date, this is Skin cut that would not have a foreign body especially he cut the finger was anjum, not deep enough to suspect bony injury, tendons are intact nerves are intact, bleeding is controlled, no indication for x-rays he also syncopized has happened to him in the past he is describing fairly classic vasovagal reaction. No ECG changes to suspect underlying dysrhythmia Differential Diagnosis Differential Diagnoses: The differential diagnosis associated with the presentation includes ( see differential as above) Admission/Observation Consideration of admission/observation: Escalation of care including admission/observation considered Independent Interpretation I performed an independent interpretation of an: EKG ( 56 beats per minute otherwise normal ECG without dysrhythmia, AV arlyn blocks or ST-T changes to suspect underlying ACS, my independent interpretation) Prescription Management I considered prescription management with: Pain Medication Procedures Laceration Laceration 1: Side (If applicable): left Size (cm): 1 Description: linear Depth: simple, single layer Local Anesthetic: lidocaine 1% Amount of anesthesia used (mL): 5 Pre-repair: deep structures intact Skin layer closed with: nylon Size (cm): 4-0 Number of sutures: 4 Technique: simple, interrupted Discharge Plan Discharge Clinical Impression: Finger laceration, Syncope, vasovagal Patient Disposition: Home, Self-Care Instructions: Finger Laceration (ED) Additional Instructions: sutures will need to come out in 7 days, keep the area and covered, can wash with soap and water you can take Tylenol or Motrin as needed for pain, any an evidence of infection come back to the ER for re-evaluation georges Prescriptions: No Action pravastatin 80 mg tablet 80 mg PO BEDTIME 90 Days Qty: 90 1RF lorazepam 0.5 mg Tablet 0.5 mg PO BID PRN (Reason: Anxiety) ascorbic acid (vitamin C) [Vitamin C] 1,000 mg Tablet 1,000 mg PO DAILY cholecalciferol (vitamin D3) [Vitamin D3] 50 mcg (2,000 unit) Capsule 50 mcg PO DAILY Ocrevus 30 mg/mL solution 600 mg IV [id number] montelukast 10 mg tablet 10 mg PO DAILY triamcinolone acetonide 0.1 % cream 1 appl topical BID-TID albuterol sulfate [ProAir HFA] 90 mcg/actuation HFA aerosol inhaler 0 mcg inhalation fluticasone propionate 50 mcg/actuation spray,suspension intranasal bupropion HCl [Wellbutrin XL] 300 mg tablet extended release 24 hr 300 mg PO QAM gabapentin 600 mg tablet 600 mg PO BEDTIME sertraline 100 mg tablet 100 mg PO DAILY tamsulosin 0.4 mg capsule 0.4 mg PO DAILY Print Language: Georgian
[2025-04-01 13:48] VITALS: BP 106/58; PULSE 66
--- NOTE | 2025-04-01 13:52 | ECG_ITS ---
Test Reason : Syncope Blood Pressure : */* mmHG Vent. Rate : 56 BPM Atrial Rate : 56 BPM P-R Int : 134 ms QRS Dur : 88 ms QT Int : 406 ms P-R-T Axes : 24 -14 15 degrees QTcB Int : 391 ms Sinus bradycardia Otherwise normal ECG When compared with ECG of 05-Jan-2011 08:40, MANUAL COMPARISON REQUIRED PREVIOUS ECG IS INCOMPATIBLE Referred By: David Crandall Electronically Signed By: LEONARDO ANDREA MD
[2025-04-01] MEDS: Lidocaine HCl 1 % 20 ML VIAL 10 ML INFILTRATI (13:54)
[2025-04-01 15:03] VITALS: BP 115/69; PULSE 53; RESP 16; TEMP 36.4; O2SAT 96
--- OUTSIDE RECORDS SUMMARY | 2025-04-01 21:01 | XMS_ITS | Clinical Summary ---
Author Organization [facility] Address [address] [place] [address] Phone Care Team Providers Care Guitar Repairer Name Role Phone Keith Herring MD Primary [...] on patient's age to complete this topic IPV VACCINES Aged Out No longer eligi ble based on patient's age to complete this topic MENINGOCOCCAL VACCINES (ACWY) Aged Out No longer eligible based on patient's age to complete this topic MENINGOCOCCAL VACCINES (B) Aged Out N o longer eligible based on patient's age to complete this topic Medical Devices Not on file Insurance [employer] [facility] Member Subscriber Plan / Payer (Ef fective 2015-Present) Name:Dequan Pierre Relation to Subscriber:Self Name:DEQUAN PIERRE Payer ID:[id number] (NAIC) Group ID:[id number] Type:PPO Address: [address] Member Subscriber Plan / Payer ( fective 2015-Present) Name:Dequan Pierre Relation to Subscriber:Self Name:DEQUAN PIERRE Payer ID:[id number] (NAIC) Group ID:[id number] Type:PPO Address: [id number] Member Subscriber Plan / Payer ( fective 2015-Present) Name:Dequan Pierre Relation to Subscriber:Self Name:DEQUAN PIERRE Payer ID:[id number] (NAIC) Group ID:[id number] Type:PPO Address: [id number] Member Subscriber Plan / Payer ( fective 2015-Present) Name:Dequan Pierre Relation to Subscriber:Self Name:DEQUAN PIERRE Payer ID:[id number] (NAIC) Group ID:[id number] Type:PPO Address: [address] Member Subscriber Plan / Payer ( fective 2015-Present) Name:Dequan Pierer Relation to Subscriber:Self Name:DEQUAN PIERRE Payer ID:[id number] (NAIC) Group ID:[id number] Type:PPO Address: [address] Member Subscriber Plan / Payer ( fective 2015-Present) Name:Dequan Pierre Relation to Subscriber:Self Name:DEQUAN PIERRE Payer ID:[id number] (NAIC) Group ID:[id number] Type:PPO Address: [address] Member Subscriber Plan / Payer ( fective 2015-Present) Name:Dequan Pierre Relation to Subscriber:Self Name:DEQUAN PIERRE Payer ID:[id number] (NAIC) Group ID:[id number] Type:PPO Address: [address] [facility] Member Subscriber Plan / Payer ( fective 2015-Present) Name:Dequan Pierre Relation to Subscriber:Self Name:DEQUAN PIERRE Payer ID:[id number] (NAIC) Group ID:[id number] Type:PPO Address: [address] Advance Directives For more information, please contact: [phone] (9AM - 5PM [facility], Friday-Friday) Documents on File Type Date Recorded Patient Art Class Model Expl anation Healthcare Proxy 04/24/2018 10:20 AM Care Teams Guitar Repairer Relationship Specialty Start Date End Date Keith Herring MD PCP - General Internal Medicine 12/29/17 Additional Source Comments The information contained in this document represents components of the legal health record. It is not the complete legal health record.[facility]
--- OUTSIDE RECORDS SUMMARY | 2025-04-01 21:01 | XMS_ITS | Patient Health Record ---
Author Organization [facility] Address [address] [place] [address] Care Team Providers Care Supervisor Blood Donor Recruiters Name Role Phone Vinay Clark Primary Care Provider Unav ailable Alessandra Johnson Unavailable [phone] Allergies No Known Allergies Reason For Referral No Information Medications Medication SIG (Take, Route, Frequency, Duration) [...] Status W/U Status Risk Notes Problem Neuropathy (094085318) Neuropathy (G62.9) Active confirmed Vital Signs Blood pressure diastolic 78 mm Hg 05/10/2024 Height 5ft 8 in in 05/10/2024 Blood pressure systolic 126 mm Hg 05/10/2024 Weight 185 lbs 05/10/2024 BMI 28.13 kg/m2 05/10/2024 Encounters Encounter Location Date Provider Diagnosis [facility] [address] [place] [address] 05/10/2024 Alessandra Johnson Neuritis M79.2 ; Neuropathy [...] Of Treatment Next Appt Details Provider Name:Alessandra george, 05/09/2025 09:00:00 AM, [address] [place], [address], Insurance Providers Payer Name Payer Address Payer Phone Subscriber Number Group Number Insured Name Patient Relationship to Insured Coverage Start Date Coverage End Date [facility] Health Plan [address] [place] [phone] [id number] Dequan Pierre Self - patient is the insured Medical (General) History Medical History History ICD Code Anxiety asthma Depression Multiple sclerosis Numbness Mumps Chicken pox Surgical History Surgery Date(Month/Year) appendectomy 04/1978 broken jaw 09/1979
== END 2025-04-01 15:05 | disposition home or self-care (01) ==
PROVIDERS: Emergency Provider Emergency Medicine; PCP Nurse Practitioner Family
DX: S61.211A Laceration without foreign body of left index finger without damage to nail, initial encounter (principal); W26.8XXA Contact with other sharp object(s), not elsewhere classified, initial encounter; Y93.9 Activity, unspecified; Y92.9 Unspecified place or not applicable; Y99.9 Unspecified external cause status; R55 Syncope and collapse; G35.D Multiple sclerosis, unspecified; Z79.899 Other long term (current) drug therapy
CPT/HCPCS: 12001; 93005; 99284; J2003

== ENCOUNTER → 2025-04-01 13:52 | Outpatient (BNV) | payer OTHER, SELFPAY | PROVIDERS: Emergency Provider Emergency Medicine; PCP Nurse Practitioner Family; Visit Provider Internal Medicine Cardiovascular Disease | DX: R00.1 Bradycardia, unspecified (principal) | CPT/HCPCS: 93010 ==

== ENCOUNTER 2025-04-08 07:54 | Outpatient (AMB) | payer OTHER, SELFPAY ==
--- OUTSIDE RECORDS SUMMARY | 2024-10-20 05:20 | XMS_ITS ---
Author Organization [facility] Address [address] [place] [address] Care Team Providers Care Sonography Technician Name Role Phone Nima NEWMAN, Keith Primary Care Provider UnavailTeja Martinez Jr [phone] REASON FOR VISIT screening colon Encounters Encounter Location Date Provider Diagnosis [facility] [address] [place] [address] 10/20/2024 Teja Johnson Jr Plan Of Treatment No Information Progress Notes * SERINA MARCELOOB:1960 (64 yo M)Acc No.[id number]:10/20/2024 Progress Notes Patient: MIREYA WALKER Provider: José Johnson MD :1960 A ge:64 Y S ex:Male Date:10/20/2024 Address: [id number] Pcp:Keith Herring MD Subjective: * Chief Complaints: * S creening colon * The named appointment provid er may or may not be the originator of this progress note, and it is not deemed complete until electronically signed by the appointment provider. Sign off status: Pending * Provider: José Johnson MD Date: 0 10/20/2024 Generated for Ronald daniel/Tiffani/eTransmitting on: 06/08/2024 07:57 AM EST
--- OUTSIDE RECORDS SUMMARY | 2025-01-21 02:30 | XMS_ITS ---
Author Organization [facility] Address [address] [place] [address] Care Team Providers Care Fit Model Name Role Phone Nima NEWMAN, Keith Primary Care Provider Teja Quan Jr [phone] REASON FOR VISIT screening,hx polyps Encounters Encounter Location Date Provider Diagnosis [facility] Outpatient [address] [place] [phone] 01/21/2025 Teja Johnson Jr Plan Of Treatment No Information Progress Notes * SERINA MARCELOOB:1960 (64 yo M)Acc No.[id number]:01/21/2025 COLON WITH MAC Patient: MIREYA WALKER Provider: José Johnson MD :1960 A ge:64 Y S ex:Male Date:01/21/2025 Address:[address] [place] [address] [facility] Pcp:Keith Herring MD Subjective: * Chief Complaints: * S creening,hx polyps * The named appointment provid er may or may not be the originator of this progress note, and it is not deemed complete until electronically signed by the appointment provider. Sign off status: Pending * Provider: José Johnson MD Date: 0 01/21/2025 Generated for Ronald daniel/Tiffani/eTransmitting on: 06/08/2024 07:57 AM EST
--- OUTSIDE RECORDS SUMMARY | 2025-04-08 07:57 | XMS_ITS | Clinical Summary ---
Author Organization [facility] Address [address] [place] [address] Phone Care Team Providers Care Mining And Quarrying Machinery Repairer Name Role Phone Keith Herring MD [...] topic Medical Devices Not on file Insurance [facility] Member Subscriber Plan / Payer (Ef fective 2015-Present) Name:Dequan Pierre Relation to Subscriber:Self Name:DEQUAN PIERRE Payer ID:[id number] (NAIC) Group ID:[id number] Type:PPO Address: [address] [facility] Member Subscriber Plan / Payer (Ef fective 2015-Present) Name:Dequan Pierre Relation to Subscriber:Self Name:DEQUAN PIERRE Payer ID:[id number] (NAIC) Group ID:[id number] Type:PPO Address: [address] [facility] Member Subscriber Plan / Payer ( fective 2015-Present) Name:Dequan Pierre Relation to Subscriber:Self Name:DEQUAN PIERRE Payer ID:[id number] ([facility]) Group ID:[id number] Type:PPO Address: [address] [facility] Member Subscriber Plan / Payer ( fective 2015-Present) Name:Dequan Pierre Relation to Subscriber:Self Name:DEQUAN PIERRE Payer ID:[id number] (NAIC) Group ID:[id number] Type:PPO Address: [address] [facility] Member Subscriber Plan / Payer ( fective 2015-Present) Name:Dequan Pierre Relation to Subscriber:Self Name:DEQUAN PIERRE Payer ID:[id number] ([facility]) Group ID:[id number] Type:PPO Address: [address] [facility] Member Subscriber Plan / Payer ( fective 2015-Present) Name:Dequan Pierre Relation to Subscriber:Self Name:DEQUAN PIERRE Payer ID:[id number] (NAIC) Group ID:[id number] Type:PPO Address: [address] [facility] Member Subscriber Plan / Payer ( fective 2015-Present) Name:Dequan Pierre Relation to Subscriber:Self Name:DEQUAN PIERRE Payer ID:[id number] ([facility]) Group ID:[id number] Type:PPO Address: [address] [facility] Member Subscriber Plan / Payer ( fective 2015-Present) Name:Dequan Pierre Relation to Subscriber:Self Name:DEQUAN PIERRE Payer ID:[id number] (NAIC) Group ID:[id number] Type:PPO Address: [address] Advance Directives For more information, please contact: [phone] (9AM - 5PM [facility], Friday-Friday) Documents on File Type Date Recorded Patient Metalizing Supervisor Expl anation Healthcare Proxy 04/24/2018 10:20 AM Care Teams Mining And Quarrying Machinery Repairer Relationship Specialty Start Date End Date Keith Herring MD PCP - General Internal Medicine 12/29/17 Additional Source Comments The information contained in this document represents components of the legal health record. It is not the complete legal health record.[facility]
--- OUTSIDE RECORDS SUMMARY | 2025-04-08 07:57 | XMS_ITS | Patient Health Record ---
Author Organization [facility] Address [address] [place] [address] Care Team Providers Care Schedule Announcer Name Role Phone Nima NEWMAN, Keith Primary Care Provider Unavailab Teja Ribeiro Jr Unavailable [phone] Allergies No Known Allergies Results Component Value Reference Range Notes Pathology Reviewed date:01/26/2025 03:15:38 PM Interpretation: Performing Lab:[facility], [address] [place] [id number] Notes/Report: Reason For Referral Referring Provider First Name Keith Referring Provider Last Name Nima Referring Provider Speciality Internal M edicine Referred Organization [facility] Referred Provider Teja Johnson Jr Referred Address [address] [place] [address], ite [address] [place] [id number], Referred Provider Specialty Gastroentero logy Referral Priority Routine Medications Medication SIG (Take, Route, Frequency, Duration) Notes Start Date End Date Status Ocrevus 300 MG/10ML Solution as directed Intravenous 6 month infusion Active Calcium 200 MG Tablet 2 tablets Orally daily Active Vitamin D3 2000 UNIT Capsule 2 capsules Orally daily Acti ve Vitamin C 1000 MG Tablet 1 tablet Orally Once a day Active Vitamin B Complex Tablet Orally Active Gabapentin 600mg Tablet 1 tablet Orally qd Active Montelukast Sodium 10 MG Tablet 1 tablet Orally Once a day A ctive Albuterol Active Pravastatin Sodium 40 MG Tablet 1 tablet Orally Once a day A ctive LORazepam 0.5 MG Tablet 1 tablet as need ed Orally Twice a day Active Wellbutrin XL 300 MG Tablet Extended Release 24 Hour 1 tablet in the morning Orally Once a day Active Allergy Med otc Active Immunizations Vaccine Route Administration Date Status Comme nts Influenza Unknown 03/19/2021 Administered Social History Social History Additional Details Category Social Info Options Details Miscellaneous: Marital status: 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 Negative for tobacco, alcoho l is intermittent. Negative for tobacco, alcoho l is intermittent. Negative for tobacco, alcoho l is intermittent. Problems Problem Type SNOMED Code ICD Code Onset Dates Problem Status W/U Status Risk Notes Problem Colon cancer screening (430816623) Colon cancer screening (Z12.11) Active confirmed Problem Gastro-esophage al reflux disease without esophagitis (127765710) Gastro-esophageal reflux disease without esophagitis (K21.9) Active confirmed Problem Pre-procedure evaluation check (968187392) Encounter for other preprocedural examination (Z01.818) Active confirmed Problem Dysphagia (92212750) Other dysphagia (R13.19) Active confirmed Problem Throat clearing (23387267) Throat clearing (R68.89) Active confirmed Problem Personal history of adenomatous and serrated colon polyps (Z86.0101) Active confirmed Vital Signs Blood pressure diastolic 77 mm Hg 10/28/2024 Height 69 in 10/28/2024 Blood pressure systolic 111 mm Hg 10/28/2024 Weight 189 lbs 10/28/2024 BMI 27.91 kg/m2 10/28/2024 Encounters Encounter Location Date Provider Diagnosis [facility] [address] [place] [phone] 01/21/2025 Teja Johnson Jr [facility] [address] [place] [address] 10/28/2024 Teja Johnson Jr Colon cancer screening Z12.11 ; Encounter for other preprocedural examination Z01.818 and Personal history of adenomatous and serrated colon polyps Z86.0101 [facility] [address] [place] [address] 07/26/2024 Teja Johnson Jr [facility] [address] [place] [phone] 01/26/2025 Teja Johnson Jr Assessments Encounter Date [...] Insured Coverage Start Date Coverage End Date [facility] [address] [place] [address] [id number] MIREYA MARCELO Self - patient is the insured Medical (General) History Medical History History ICD Code elevated cholesterol multiple sclerosis jaw fracture fractured clavicle seasonal asthma Surgical History Surgery Date(Month/Year) appendectomy broken jaw discectomy
--- OUTSIDE RECORDS SUMMARY | 2025-04-08 07:57 | XMS_ITS | Patient Health Record ---
Author Organization [facility] Address [address] [place] [address] Care Team Providers Care Surveying Technician Name Role Phone Vinay Clark Primary Care Provider Unav ailable Alessandra Johnson Unavailable [phone] Allergies No Known Allergies Reason For Referral [...] Status W/U Status Risk Notes Problem Neuropathy (595342449) Neuropathy (G62.9) Active confirmed Vital Signs Blood pressure diastolic 78 mm Hg 05/10/2024 Height 5ft 8 in in 05/10/2024 Blood pressure systolic 126 mm Hg 05/10/2024 Weight 185 lbs 05/10/2024 BMI 28.13 kg/m2 05/10/2024 Encounters Encounter Location Date Provider Diagnosis [facility] [address] [place] [address] 05/10/2024 Alessandra Johnson Neuritis M79.2 ; Neuropathy [...] Provider Name:Alessandra george, 05/09/2025 09:00:00 AM, [address] [place], [address], Insurance Providers Payer Name Payer Address Payer Phone Subscriber Number Group Number Insured Name Patient Relationship to Insured Coverage Start Date Coverage End Date [facility] Health Plan [address] [place] [address] [phone] [id number] Dequan Pierre Self - patient is the insured Medical (General) History Medical History History ICD Code Anxiety asthma Depression Multiple sclerosis Numbness Mumps Chicken pox Surgical History Surgery Date(Month/Year) appendectomy 04/1978 broken jaw 09/1979
[2025-04-08 08:05] VITALS: BP 114/70; PULSE 61; O2SAT 96; BMI 30.1
--- NOTE | 2025-04-08 08:05 | AM.OFFWIN_ITS ---
Intake Vital Signs 04/08/25 08:05 Height 5 ft 8 in Weight 198 lb BMI 30.1 BP 114/70 Blood Pressure Location Rt brachial Position Sitting Pulse 61 Pulse Source Pulse Oximeter Pulse Oximetry (%) 96 Oxygen Delivery Method Room Air Intake Visit Reasons: EP stitch removal of lt pointer finger Intake Note: Patient presents for suture removal of left index finger. Patient states he had 4 but one came undone so he has 3 now. Patient Tobacco Use Status: Former Tobacco user Allergies seasonal/ enviromental Allergy (Intermediate, Uncoded 04/08/25 08:08) Runny Nose HPI HPI Comments History of Present Illness Details History of Present Illness - The patient is a 64-year-old individua l presenting with a finger laceration with sutures that need to be removed. - The laceration occurred while using sh ears without gloves, resulting in a cut that required stitches. - The patient received stitches in the e mergency room at [facility]. - The stitches have been in place for on e week, with one stitch missing, causing slight separation at the site. - The patient reports no drainage, fever , tenderness, or redness after the initial two days post-injury. - The patient had a tetanus booster two years ago, ensuring current prophylaxis. - The patient has been using a modified rubber glove to protect the finger, which has been effective in preventing further injury. [facility] Medical History Seasonal asthma Asthma Multiple sclerosis Elevated cholesterol Surgical History Hx of colonoscopy (08/2021) History of mandibular surgery Hx of appendectomy Social History Household Members: Spouse Housing: House Patient Tobacco Use Status: Former Tobacco user Tobacco use type: Cigarette e-Cigarette/Vaping Use: Never Used service: Yes Current occupational status: retired Cognitive needs: No Hearing needs: Yes Vision needs: Yes Review of Systems Narrative Review of Systems - Integumentary: Denies drainage, fever, tenderness, or redness after the initial two days post-injury. - Neurological: Reports slight numbness at the deepest part of the cut. All systems reviewed and are unremarkable except as noted in HPI Physical Exam Exam Exam: Physical Exam General: Cooperative, healthy appearing, comfortable, no acute distress and well developed Orientation: Patient oriented x3 Limitations: No limitations Head: Normal to inspection Ears: Hearing grossly normal bilaterally Nose: Normal External nose present Face and sinus: Normal facial exam Eyes: Appearance normal, both eyes and all related structures Neck: Normal visual inspection and Yes full ROM Respiratory: Normal respiratory effort and able to speak in complete sentences. Skin: No rashes or lesions noted Neuro: Patient oriented x3 Extremities: Normal to inspection, except for left 2nd digit with [address] No drainage, erythema or tenderness. Full range of motion of the finger, NVI. Vital Signs: Last Vital Signs Pulse 61 04/08/25 08:05 BP 114/70 04/08/25 08:05 Pulse Ox 96 04/08/25 08:05 Oxygen Delivery Method Room Air 04/08/25 08:05 BMI result Body Mass Index 30.1 Office Procedures AMB Laceration Repair Details: remvoed sutures but there was one missing and caused a dehiscence so I applied some skin glue to the area Laceration repair performed by: Kate Lea Explained risks and benefits to parent: Yes Informed consent given: Yes Consent signed: No Location: left 2nd digit tip Length: 1cm Sedation: No Deep closure: No Skin closure: glue Topical treatment: dry Tetanus toxoid ordered: No Patient tolerated procedure: well Complications: No [id number] Repair Dehiscence simple closure Procedure code (CPT) selection complete Assessment & Plan Assessment & Plan (1) Dehiscence of wound of skin: Code(s): T81.30XA - Disruption of wound, unspecified, initial encounter Plan Plan Patient was informed and verbally consented to the use of an ambient scribe for clinic note documentation during this visit. - Applied skin glue to ensure proper healing due to the missing stitch and slight separation. - Advised to continue using a protective covering, such as a modified rubber glove, to prevent further injury. - Instructed to monitor for signs of infection, including drainage, redness, or increased tenderness, and to report any such symptoms. - Confirmed that the patient is up-to-date with tetanus prophylaxis, having received a booster two years ago. Orders: Orders AMB Laceration Repair Today S61.219A - Laceration without foreign body of unspecified finger without damage to nail, initial encounter Coding Level of Care Code Est Pt Level 3 (83595) Diagnoses Dehiscence of wound of skin T81.30XA CPT Codes Office Procedure - Laceration Repair 4: [id number] Repair Dehiscence simple closure ([id number])
== END 2025-04-08 08:45 | disposition home or self-care (01) ==
PROVIDERS: PCP Nurse Practitioner Family; Visit Provider Physician Assistant
DX: T81.30XA Disruption of wound, unspecified, initial encounter (principal)

== ENCOUNTER → 2025-04-08 07:54 | Outpatient (BNVA) | payer OTHER, SELFPAY | PROVIDERS: PCP Nurse Practitioner Family; Visit Provider Physician Assistant | DX: T81.30XA Disruption of wound, unspecified, initial encounter (principal) | CPT/HCPCS: 12020; 99212 ==